=== PATIENT | male | born 1940 | race Caucasian/White ===

== ENCOUNTER → 2016-10-19 | Outpatient (CLI) | payer BC ==
[~2016-10-19] MED LIST: ASPCH81 PO; ASPI81TA28 PO; CALCTAB5 PO; LEVO100T PO; LISI-461 PO; LOVA20TA4 PO; METR0.7527 TOP; METR1GEL3 EXT; MULT-506 PO; NXM/40 PO; POLY335019 PO; PRLSR20 PO; SIMV20TA2 PO; SYN75 PO; TRIA0.1L EXT; TRMCR515 TOP; VITATAB29 PO
[2016-10-19 09:40] LABS: BASO % 1.1 %; BASO ABS # 0.07 K/uL (0-0.2); COMPLETE YES; EOS % 5.2 %; HEMATOCRIT 41.9 % (42-52); IG% 0.3 %; LYMPH % 32.7 %; LYMPH ABS # 2.12 K/uL (1.2-3.4); MEAN CELL VOLUME 91.7 fL (80-100); MEAN CORPUSCULAR HGB CONC 32.7 g/dl (32-36); MEAN PLATELET VOLUME 8.8 fL (7.4-10.4); NEUT % 49.7 %; PLATELET COUNT 233 K/uL (130-400); RED BLOOD COUNT 4.57 M/uL (4.7-6.1); WHITE BLOOD COUNT 6.48 K/uL (4.8-10.8)
[2016-10-19 09:49] LABS: BLOOD UREA NITROGEN 17 mg/dl (7-18); BUN/CREATININE RATIO 16.5 (10-20); CALCIUM 8.4 mg/dl (8.5-10.1); CARBON DIOXIDE 26 mmol/L (21-32); CHLORIDE 107 mmol/L (98-107); GLUCOSE 118 mg/dl (70-99); POTASSIUM 4.6 mmol/L (3.5-5.1); SODIUM 141 mmol/L (136-145)
[2016-10-19 10:00] LABS: PROSTATE SPECIFIC ANTIGEN 0.585 ng/ml (0.000-4.000)
--- NOTE | 2016-10-23 12:29 | CODING QUERY MEDICAL NECESSITY ---
SUPPORTING DIAGNOSIS NEEDED A supporting diagnosis is required for the test/procedure performed on this patient in order for us to be reimbursed by the patient's insurance. Please provide a supporting diagnosis for the following test/procedure listed below next to the test name along with your signature. *If there is no additional diagnosis for this patient that would support the following test/procedure please document that below next to the test/procedure. Test(s)/Procedure(s) that require a supporting diagnosis: * PSA DIAGNOSIS: * DOS: 10/19/16 Provider Signature: Date: Thank you Tierra Chisholm [employer] Information Management Once completed, please kindly fax back to [phone] For questions please call [phone]
== END | disposition home or self-care (01) ==
LOC: C.LAB 08:49
PROVIDERS: ATTEND Internal Medicine Geriatric Medicine
DX: E03.9 Hypothyroidism, unspecified (principal); I10 Essential (primary) hypertension; K22.70 Barrett's esophagus without dysplasia; M17.9 Osteoarthritis of knee, unspecified; Z12.5 Encounter for screening for malignant neoplasm of prostate

== ENCOUNTER → 2017-05-18 | Outpatient (CLI) | payer BC ==
[2017-05-18 09:40] LABS: BASO % 0.5 %; BASO ABS # 0.04 K/uL (0-0.2); COMPLETE YES; EOS % 5.2 %; HEMATOCRIT 41.8 % (42-52); IG% 0.3 %; LYMPH % 28.9 %; LYMPH ABS # 2.12 K/uL (1.2-3.4); MEAN CELL VOLUME 91.9 fL (80-100); MEAN CORPUSCULAR HEMOGLOBIN 30.5 pg (25-34); MEAN CORPUSCULAR HGB CONC 33.3 g/dl (32-36); MEAN PLATELET VOLUME 8.7 fL (7.4-10.4); MONO % 9.9 %; NEUT % 55.2 %; PLATELET COUNT 225 K/uL (130-400); RED BLOOD COUNT 4.55 M/uL (4.7-6.1); WHITE BLOOD COUNT 7.34 K/uL (4.8-10.8)
[2017-05-18 10:03] LABS: ALT/SGPT 19 U/L (12-78); AST/SGOT 13 U/L (15-37); BLOOD UREA NITROGEN 17 mg/dl (7-18); BUN/CREATININE RATIO 18.3 (10-20); CALCIUM 9.1 mg/dl (8.5-10.1); CARBON DIOXIDE 29 mmol/L (21-32); CHLORIDE 106 mmol/L (98-107); CHOLESTEROL 159 mg/dl (0-200); CREATININE 0.95 mg/dl (0.60-1.40); GLUCOSE 114 mg/dl (70-99); POTASSIUM 4.5 mmol/L (3.5-5.1); SODIUM 139 mmol/L (136-145); TRIGLYCERIDES 162 mg/dl (0-150); VERY LOW DENSITY LIPOPROT CALC 32 mg/dl
[2017-05-18 10:13] LABS: ALB/GLOB RATIO 0.9 (0.9-2); ALKALINE PHOSPHATASE 86 U/L (45-117); CHOLESTEROL/HDL RATIO 4.3; FERRITIN 7.8 ng/ml (8.0-388.0); HDL CHOLESTEROL 37 mg/dl; LDL CHOLESTEROL CALCULATED 90 mg/dl
[2017-05-18 10:21] LABS: ESTIMATED AVERAGE GLUCOSE 128 mg/dl; HA1C FLAG Normal (Normal)
--- NOTE | 2017-05-25 13:41 | CODING QUERY MEDICAL NECESSITY ---
CQSUPPORTING DIAGNOSIS NEEDED A supporting diagnosis is required for the test/procedure performed on this patient in order for us to be reimbursed by the patient's insurance. Please provide a supporting diagnosis for the following test/procedure listed below next to the test name along with your signature. *If there is no additional diagnosis for this patient that would support the following test/procedure please document that below next to the test/procedure. Test(s)/Procedure(s) that require a supporting diagnosis: DOS 05/18/17 VITAMIN D TEST VITAMIN B12 TEST GLYCATED HEMOGLOBIN TEST Provider Signature: Date: Thank you Natalie Galicia [facility] Information Management Once completed, please kindly fax back to [phone] For questions please call [phone]
== END | disposition home or self-care (01) ==
LOC: C.LAB 08:27
PROVIDERS: ATTEND Internal Medicine Geriatric Medicine
DX: E03.9 Hypothyroidism, unspecified (principal); I10 Essential (primary) hypertension; E78.5 Hyperlipidemia, unspecified; M17.10 Unilateral primary osteoarthritis, unspecified knee

== ENCOUNTER 2017-06-15 17:54 | Emergency (ER) | payer BC ==
[~2017-06-15 17:54] MED LIST changes: -ASPI81TA28 PO; -LEVO100T PO; -LOVA20TA4 PO; -METR0.7527 TOP; -NXM/40 PO; -POLY335019 PO; -TRMCR515 TOP; -VITATAB29 PO
[2017-06-15 18:08] VITALS: TEMP 36.8; Ht 172.7 cm
--- NOTE | 2017-06-15 19:37 | EMERGENCY ROOM VISIT NOTE ---
History Report prepared by Jesse: Marcel Russell Under the Supervision of: Dr. Fabio Garcia D.O. First contact with patient: 19:24 Chief Complaint: GI ASSESSMENT Stated Complaint: BOWEL BLOCKAGE History of Present Illness The patient is a 77 year old male who presents to the Emergency Room with complaints of constant constipation starting two days ago. He rates his discomfort as a 7/10 in severity. The patient states that he has not had a bowel movement since two days ago. He reports that he is normally regular and this has been abnormal. The patient states that he has not been able to urinate either. He admits to lower abdominal pain, which he admits is worse with sitting and laying on his back. The patient admits to a colonoscopy two years ago, but denies any problems. He reports that he used Metamucil, Epson Salt, warm water, and saline. The patient states that he was only able to get 10 percent of the saline in. He reports that he takes medication for his hypertension and thyroid issues. The patient admits to a history of polyps and a hemorrhoidectomy years ago. He denies any abdominal surgery. Source of History: patient Onset: two days ago Position: other (global) Symptom Intensity: 7/10 Timing: constant Modifying Factors (Relieving): other (Metamucil, Epson Salt, warm water, saline) Associated Symptoms: + abdominal pain, + urinary symptoms Review of Systems See HPI for pertinent positives & negatives. A total of 10 systems reviewed and were otherwise negative. Past Medical & Surgical Medical Problems: (1) Hemorrhoid (2) Hypertension Surgical Problems: (1) H/O hemorrhoidectomy Family History Patient reports no known family medical history. Social History Smoking Status: Former Smoker Drug Use: none Marital Status: Housing Status: lives with significant other Occupation Status: retired Current/Historical Medications Scheduled Aspirin (Aspirin Ec), 81 MG PO DAILY Esomeprazole Magnesium (Nexium), 40 MG PO DAILY Levothyroxine Sodium (Synthroid), 100 MCG PO DAILY Lisinopril (Zestril), 10 MG PO DAILY Lovastatin (Mevacor), 20 MG PO DAILY Metronidazole (Topical) (Metrogel), 1 APPLN TOP DAILY Multivitamin (Multivitamin), 1 TAB PO DAILY Polyethylene Glycol 3350 (Miralax), 17 GM PO DAILY Triamcinolone Acet (Triamcinolone Acetonide), 1 APPLN TOP UD Vitamins W/ Lipotropics (Lipoflavovit), 1 TAB PO BID Allergies Coded Allergies: Famotidine (Verified Allergy, Unknown, 09/06/15) Nitrofurantoin (Unverified Allergy, Unknown, unknown, 09/06/15) Penicillins (Verified Allergy, Unknown, 09/06/15) Sulfa Drugs (Verified Allergy, Unknown, 09/06/15) Uncoded Allergies: BANDAIDES (Allergy, Unknown, SKIN TEAR, 09/06/15) Physical Exam Vital Signs Date Time Temp Pulse Resp B/P (MAP) Pulse Ox O2 Delivery O2 Flow Rate FiO2 06/15/17 22:14 79 20 149/71 96 Room Air 06/15/17 20:31 86 20 146/67 96 Room Air 06/15/17 18:08 36.8 116 20 129/74 96 Room Air Physical Exam GENERAL: Patient is awake, alert, and in no acute distress. Patient is resting comfortably and showing no signs of anxiety EYES: The conjunctivae are clear. The pupils are round and reactive. EARS, NOSE, MOUTH AND THROAT: The nose is without any evidence of any deformity. Mucous membranes are moist tongue is midline NECK: The neck is nontender and supple. RESPIRATORY: Normal respiratory effort is noted there is no evidence of wheezing rhonchi or rales CARDIOVASCULAR: Regular rate and rhythm noted there no murmurs rubs or gallops normal S1 normal S2 GASTROINTESTINAL: Moderately distended but soft. No tenderness, guarding, or rigidity noted. MUSCULOSKELETAL/EXTREMITIES: There is no evidence of gross deformity full range of motion is noted in the hips and shoulders SKIN: There is no obvious evidence of any rash. There are no petechiae, pallor or cyanosis noted. NEUROLOGIC: Patient is awake alert and oriented x3 strength is symmetric patellar reflexes are 2+ bilaterally Medical Decision & Procedures ER Provider Diagnostic Interpretation: X-ray results as stated below per interpretation by me and the radiologist. ABDOMEN 2VIEW W/PA CHEST RTN HISTORY: 77 years-old Male CONSTIPATION acute constipation for 2 days. COMPARISON: Chest radiographs 07/31/2012 TECHNIQUE: Frontal view of the chest with erect and supine views of the abdomen FINDINGS: Cardiomediastinal and hilar silhouettes are within normal limits. Subsegmental scarring/atelectasis of the left lung base is again seen without pneumothorax, pleural effusion or focal airspace consolidation. There is atherosclerosis of the aorta. No pneumoperitoneum. Multiple air-fluid levels are seen within bowel of the right abdomen. Bowel gas pattern is nonobstructive. Moderate to extensive stool burden is seen within the rectosigmoid, descending colon and splenic flexure. No urolith. Moderate osteoarthritis of the bilateral hips. No fracture. IMPRESSION: 1. No acute cardiopulmonary process. 2. Multiple air-fluid levels are noted within bowel of the right mid abdomen with a nonobstructive bowel gas pattern. Differential considerations would include mild ileus, enteritis or diarrheal state. The above report was generated using voice recognition software. It may contain grammatical, syntax or spelling errors. Electronically signed by: Daniel Travis M.D. 06/15/2017 8:51 PM Dictated Date/Time: 06/15/2017 8:49 PM Medications Administered Medications (Trade) Dose Ordered Sig/Charlene Route Start Time Stop Time Status Last Admin Dose Admin Miscellaneous (Soap Suds Enema) 1 ea ONE STAT DE 06/15/17 20:29 06/15/17 20:30 DC 06/15/17 20:44 1 EA ED Course 1927: The patient was evaluated in room A10. A complete history and physical examination were performed. 2028: Ordered Soap Suds Enema 1 each DE. Medical Decision Differential diagnosis: Etiologies such as appendicitis, diverticulitis, PUD, biliary pathology, UTI, pancreatitis, obstruction, mesenteric ischemia, aortic pathology, infections, inflammatory bowel disease, renal colic, as well as others were entertained. Nursing notes reviewed. The patient is a 77-year-old male who presented to the emergency department for evaluation of constipation. The patient's physical exam was not consistent with an acute surgical abdomen. Plain x-rays did reveal some signs of constipation and on exam he had some degree of fecal impaction. The patient was treated with a soapsuds enema in the emergency department. He had a very large bowel movement and afterwards was feeling much better. He was encouraged to rest and avoid strenuous activity. He was also encouraged to drink plenty clear liquids and continue all medications as prescribed. He was also encouraged to return to the emergency department immediately if symptoms change worsen or the need arises. Medication Reconcilliation Current Medication List: was personally reviewed by me Blood Pressure Screening Patient's blood pressure: Elevated blood pressure Blood pressure disposition: Elevated BP felt to be situational Impression Primary Impression: Constipation Scribe Attestation The scribe's documentation has been prepared under my direction and personally reviewed by me in its entirety. I confirm that the note above accurately reflects all work, treatment, procedures, and medical decision making performed by me. Departure Information Dispostion Home / Self-Care Prescriptions Polyethylene Glycol 3350 (MIRALAX) 1 Pow 17 GM PO DAILY, #527 GM Prov: Fabio Garcia, DO 06/15/17 Referrals Matty Ortez M.D. (PCP) Forms HOME CARE DOCUMENTATION FORM, IMPORTANT VISIT INFORMATION Patient Instructions Constipation, My [facility] [place] Additional Instructions Continue all medications as prescribed. Drink plenty clear liquids. Call your family to schedule a follow-up appointment. Problem Qualifiers Primary Impression: Constipation Constipation type: unspecified constipation type Qualified Codes: K59.00 - Constipation, unspecified
[2017-06-15] MEDS ORDERED: SOAP SUDS ENEMA PR STA (20:29)
--- NOTE | 2017-06-15 20:53 | DIAGNOSTIC IMAGING REPORT ---
ABDOMEN 2VIEW W/PA CHEST RTN HISTORY: 77 years-old Male CONSTIPATION acute constipation for 2 days. COMPARISON: Chest radiographs 07/31/2012 TECHNIQUE: Frontal view of the chest with erect and supine views of the abdomen FINDINGS: Cardiomediastinal and hilar silhouettes are within normal limits. Subsegmental scarring/atelectasis of the left lung base is again seen without pneumothorax, pleural effusion or focal airspace consolidation. There is atherosclerosis of the aorta. No pneumoperitoneum. Multiple air-fluid levels are seen within bowel of the right abdomen. Bowel gas pattern is nonobstructive. Moderate to extensive stool burden is seen within the rectosigmoid, descending colon and splenic flexure. No urolith. Moderate osteoarthritis of the bilateral hips. No fracture. IMPRESSION: 1. No acute cardiopulmonary process. 2. Multiple air-fluid levels are noted within bowel of the right mid abdomen with a nonobstructive bowel gas pattern. Differential considerations would include mild ileus, enteritis or diarrheal state. The above report was generated using voice recognition software. It may contain grammatical, syntax or spelling errors. Electronically signed by: Daniel Travis M.D. 06/15/2017 8:51 PM Dictated Date/Time: 06/15/2017 8:49 PM
[2017-06-15] MEDS ORDERED: LEVO100T PO (21:13)
[2017-06-15] MEDS ORDERED: NXM/40 PO (21:13)
[2017-06-15] MEDS ORDERED: ASPI81TA28 PO (21:13)
[2017-06-15] MEDS ORDERED: LOVA20TA4 PO (21:13)
[2017-06-15] MEDS ORDERED: METR0.7527 TOP (21:13)
[2017-06-15] MEDS ORDERED: VITATAB29 PO (21:13)
[2017-06-15] MEDS ORDERED: TRMCR515 TOP (21:14)
[2017-06-15] MEDS ORDERED: POLY335019 PO (21:55)
[2017-06-15 22:14] VITALS: BP 149/71; PULSE 79; O2SAT 96
== END 2017-06-15 22:15 | disposition home or self-care (01) ==
LOC: C.EDB 17:55 → C.EDA 22:15
DX: K59.00 Constipation, unspecified (principal); I10 Essential (primary) hypertension; R33.9 Retention of urine, unspecified; R10.30 Lower abdominal pain, unspecified; Z79.82 Long term (current) use of aspirin; Z87.891 Personal history of nicotine dependence

== ENCOUNTER → 2017-11-16 | Outpatient (CLI) | payer BC ==
[~2017-11-16] MED LIST changes: -ASPCH81 PO; +ASPI81TA28 PO; -CALCTAB5 PO; +LEVO100T PO; +LOVA20TA4 PO; +METR0.7527 TOP; -METR1GEL3 EXT; +NXM/40 PO; +POLY335019 PO; -PRLSR20 PO; -SIMV20TA2 PO; -SYN75 PO; -TRIA0.1L EXT; +TRMCR515 TOP; +VITATAB29 PO
[2017-11-16 09:34] LABS: BASO % 0.5 %; BASO ABS # 0.04 K/uL (0-0.2); EOS % 3.7 %; HEMATOCRIT 40.8 % (42-52); HEMOGLOBIN 13.6 g/dL (14.0-18.0); IG# 0.03 K/uL (0.00-0.02); LYMPH % 21.8 %; LYMPH ABS # 1.79 K/uL (1.2-3.4); MEAN CELL VOLUME 90.1 fL (80-100); MEAN CORPUSCULAR HGB CONC 33.3 g/dl (32-36); MEAN PLATELET VOLUME 8.3 fL (7.4-10.4); MONO % 10.8 %; MONO ABS # 0.89 K/uL (0.11-0.59); NEUT % 62.8 %; NEUT ABS # 5.16 K/uL (1.4-6.5); PLATELET COUNT 253 K/uL (130-400); RED CELL DISTRIBUTION WIDTH CV 13.8 % (11.5-14.5); RED CELL DISTRIBUTION WIDTH SD 44.7 fL (36.4-46.3); WHITE BLOOD COUNT 8.21 K/uL (4.8-10.8)
[2017-11-16 10:16] LABS: BLOOD UREA NITROGEN 17 mg/dl (7-18); CALCIUM 9.1 mg/dl (8.5-10.1); CARBON DIOXIDE 27 mmol/L (21-32); CREATININE 1.01 mg/dl (0.60-1.40); GLUCOSE 106 mg/dl (70-99); POTASSIUM 4.2 mmol/L (3.5-5.1); SODIUM 139 mmol/L (136-145)
== END | disposition home or self-care (01) ==
LOC: C.LAB 08:05
PROVIDERS: ATTEND Internal Medicine Geriatric Medicine
DX: E03.9 Hypothyroidism, unspecified (principal); I10 Essential (primary) hypertension

== ENCOUNTER 2022-04-22 17:40 | Inpatient (IN) ==
--- NOTE | 2022-04-22 18:10 | Emergency Department Note ---
History of Present Illness General Chief complaint: Shortness of Breath/Dyspnea Stated complaint: SHAKING, CANNOT WALK, SOB Time Seen by Provider: 04/22/22 17:48 Source: patient and family ( who is at the bedside) Mode of arrival: ambulatory Limitations: no limitations History of Present Illness This patient is a 82-year-old male comes in with increasing weakness and shakiness. He says some chronic shortness of breath for the last several months as well. He started getting shaky since he was seen here yesterday and his says he got significantly worse where he is very shaky and cannot walk. The shaking seems to mostly in his upper extremities he has had no focal numbness or weakness no fall or trauma no chest pain no headache he has an occasional cough denies urinary symptoms no blood or melena stool. He is h istory of some chronic anemia and has had a GI work-up which has been unremarkable with exception of Jose's esophagus. he has had no obvious GI blood loss. Home Medications Medication Instructions Recorded Confirmed Type azzfnggkqhco-sresbyxd-lyshlp tablet 1 tab PO QPM 07/01/19 04/22/22 History aspirin 81 mg chewable tablet 81 mg PO QAM 07/04/19 04/22/22 History (Katy Chewable Low Dose Aspirin) metronidazole 0.75 % topical gel 1 applic topical HS rash 01/01/20 04/22/22 History triamcinolone acetonide 0.5 % 1 applic topical UD PRN Skin 01/01/20 04/22/22 History topical cream Irritation valsartan 80 mg tablet 80 mg PO QAM 11/21/21 04/22/22 History esomeprazole magnesium 40 mg 40 mg PO QAM #90 caps 02/02/22 04/22/22 Rx capsule,delayed release levothyroxine 100 mcg tablet 100 mcg PO QAM #90 tabs 02/02/22 04/22/22 Rx lovastatin 20 mg tablet 20 mg PO QPM #90 tabs 02/02/22 04/22/22 Rx polyethylene glycol 3350 17 17 g PO HS 04/22/22 04/22/22 History gram/dose oral powder (Miralax) Allergies Allergy/AdvReac Type Severity Reaction Status Date / Time famotidine Allergy Intermediate Hives Verified 04/22/22 19:09 nitrofurantoin Allergy Intermediate Hives Verified 04/22/22 19:09 Penicillins Allergy Intermediate Hives Verified 04/22/22 19:09 Sulfa (Sulfonamide Allergy Intermediate Hives Verified 04/22/22 19:09 Antibiotics) adhesive AdvReac Intermediate skin tear Verified 04/22/22 19:09 Past Med/Surg History Medical History Anemia Jose's esophagus GERD (gastroesophageal reflux disease) HLD (hyperlipidemia) KOBUK (hard of hearing) HTN (hypertension) Hypothyroidism Osteoarthritis Postoperative voiding difficulty Sensorineural hearing loss (SNHL) of both ears Tinnitus Surgical History H/O colonoscopy (08/2018) Hyperplastic polyps, recheck 10 years, [facility] H/O hemorrhoidectomy 1998 H/O rotator cuff surgery R shoulder, April 2021 History of basal cell carcinoma (BCC) excision History of cataract surgery Right: August 2013 Left: September 2013 History of esophagogastroduodenoscopy (EGD) (08/2018) Focal area of Jose's esophagus 36 cm, recheck 3 years, [facility] Family History Brother , age 46 Myocardial infarction Hx of CABG Hypertension Mother Hx of CABG Coronary heart disease Father Lung cancer "behind lungs" Other No family history of adverse response to anesthesia No family history of bleeding disorder Denies family history of Ovarian cancer Prostate cancer Breast cancer Colorectal cancer Social History Smoking Status: Former smoker Tobacco Type: Cigarettes Age Started Using Tobacco: 14; Age Quit Using Tobacco: 69; packs per day: 0.5; Cigarettes Per Day: 10; Second Hand Exposure: No; Hx Alcohol Use: No Hx Substance Use: No Preferred Language: Montenegrin Communication Ability: Effective Visual Impairment: No Limitations Hearing Ability: Normal [place] Cutter Required: No Beliefs That Will Affect Care: None marital status: Current Living Situation: Spouse current occupational status: retired current occupation: used to work with [employer] Feels Safe at Home: Yes Childhood Exposure to Second-Hand Smoke: No Dental Care, Regularly: Yes Physical Activity Frequency: Daily Physical Activity Frequency Comment: walk Seatbelt Use: always Sunscreen Use: No Assistive Devices: Cane and Glasses Review of Systems A total of 10 systems reviewed and were otherwise negative Physical Exam Vital Signs Vital Signs - 24 hr 04/22/22 17:42 04/22/22 17:56 04/22/22 17:56 Temperature 36.8 C Temperature Source Temporal Artery Scan Pulse Rate 101 H Pulse Rate [Apical] Respiratory Rate 20 Respiratory Effort / Characteristics Non-Labored Short of Breath Respiratory Depth Normal Respiratory Pattern Regular Blood Pressure 152/66 H Blood Pressure [Right Arm] Blood Pressure Mean 94 Blood Pressure Mean [Right Arm] Blood Pressure Position Sitting Blood Pressure Position [Right Arm] Pulse Oximetry 98 Oxygen Delivery Method Room Air Room Air Sepsis Recent Fever Within 48 Hours No Sepsis New/Unexplained Change in Mental Status No Sepsis Action Taken by Nursing No Action Required 04/22/22 17:56 04/22/22 18:57 04/22/22 18:58 Temperature Temperature Source Pulse Rate 85 Pulse Rate [Apical] 91 H 82 Respiratory Rate 32 H 18 26 H Respiratory Effort / Characteristics Short of Breath Respiratory Depth Respiratory Pattern Tachypnea Tachypnea Blood Pressure Blood Pressure [Right Arm] 134/71 129/65 Blood Pressure Mean Blood Pressure Mean [Right Arm] 92 86 Blood Pressure Position Blood Pressure Position [Right Arm] Pulse Oximetry 98 98 98 Oxygen Delivery Method Room Air Room Air Room Air Sepsis Recent Fever Within 48 Hours Sepsis New/Unexplained Change in Mental Status Sepsis Action Taken by Nursing 04/22/22 19:39 04/22/22 18:59 04/22/22 19:25 Temperature Temperature Source Pulse Rate 80 78 Pulse Rate [Apical] 82 Respiratory Rate 18 18 19 Respiratory Effort / Characteristics Non-Labored Spontaneous Respiratory Depth Normal Respiratory Pattern Blood Pressure 129/68 158/72 H Blood Pressure [Right Arm] 158/72 H Blood Pressure Mean 88 100 Blood Pressure Mean [Right Arm] 100 Blood Pressure Position Blood Pressure Position [Right Arm] Lying Pulse Oximetry 94 97 97 Oxygen Delivery Method Room Air Room Air Room Air Sepsis Recent Fever Within 48 Hours Sepsis New/Unexplained Change in Mental Status Sepsis Action Taken by Nursing General: Well developed well nourished older male who appears shaky mostly with movement but in no acute distress, breathing comfortably on room air. Normal speech HEENT: Normal cephalic atraumatic. Pupils are equal round and reactive to light. Extraocular movements are intact. Oropharynx is pink with moist mucous membranes. No swelling of the mouth lips or tongue. Neck: Supple with a midline trachea. No meningeal signs or stiffness, no JVD or bruits. No Stridor. Chest: Clear to auscultation bilaterally. No wheezes or rhonchi. No increased work of breathing. Heart: Regular rate and rhythm without murmurs or gallops. Abdomen: Soft nontender, nondistended without rebound guarding or rigidity. Extremities: No cyanosis clubbing or edema. No calf tenderness or assymetry Spine/Back. Non tender to palpation. No CVA tenderness Skin: Good turgor without rashes. Neurologic exam: Cranial nerves two through 12 are intact. Motor and sensation are intact and symmetrical throughout. He does have a tremor which is mostly with movement he does not seem to shake it at rest Course Administered Medications Discontinued Medications Sodium Chloride (Nss 1000ml) 500 mls @ 999 mls/hr IV .Q31M ONE Stop: 04/22/22 19:35 Last Admin: 04/22/22 19:38 Dose: 999 mls/hr Documented By: CLEM Medical Decision Making Differential Diagnosis Infection, neurologic disease, acute coronary syndrome, arrhythmia, thyroid disease, medication side effect Medical Records Attestation: I reviewed the patient's medical records. Home Medications Current Medication List: was personally reviewed by me Laboratory Data Attestation: I reviewed the patient's lab results. Result diagrams: 04/22/22 18:55 04/22/22 18:55 Lab Results 04/22/22 04/22/22 04/22/22 Range/Units 18:55 18:55 18:55 WBC (4.8-10.8) K/ul RBC (4.63-6.08) M/uL Hgb (14.0-18.0) g/dl Hct (40.1-51.0) % MCV (80.0-100.0) fL MCH (25.0-34.0) pg MCHC (32.0-36.0) g/dL RDW Std Deviation (36.4-46.3) fL RDW Coeff of Razia (11.5-14.5) % Plt Count (130-400) K/uL MPV (9.4-12.4) fL Immature Gran % (Auto) % Neut % (Auto) % Lymph % (Auto) % [place] % (Auto) % Eos % (Auto) % Baso % (Auto) % Neut # (Auto) (1.4-6.5) K/uL Lymph # (Auto) (1.2-3.4) K/uL [place] # (Auto) (0.24-0.82) K/uL Eos # (Auto) (0-0.50) K/uL Baso # (Auto) (0-0.2) K/uL Immature Gran # (Auto) (0.00-0.02) K/uL PT 11.2 (9.0-12.0) Seconds INR 1.1 (0.9-1.1) Sodium 138 (136-145) mmol/L Potassium 3.8 (3.5-5.1) mmol/L Chloride 108 H (98-107) mmol/L Carbon Dioxide 24 (21-32) mmol/L Anion Gap 6 (3-11) BUN 24 H (6-23) mg/dl Creatinine 1.09 (0.6-1.4) mg/dl Est Cr Clr Drug Dosing 61.3 ml/min Est GFR ( Amer) 73.9 ml/min Est GFR (Non-Af Amer) 63.8 ml/min BUN/Creatinine Ratio 22.0 H (10-20) Glucose 101 H (70-99(Fasting)) mg/dl Lactate 1.0 (0.4-2.0) mmol/L Calcium 8.7 (8.5-10.1) mg/dl Magnesium 2.3 (1.7-2.4) mg/dl Total Bilirubin 1.0 (0.2-1.0) mg/dl AST 17 (13-39) U/L ALT 11 (7-52) U/L Alkaline Phosphatase 84 (34-104) U/L Total Creatine Kinase 264 H (30-223) U/L Troponin I High Sens 7.8 (0-20) pg/ml Total Protein 6.8 (6.0-8.3) gm/dl Albumin 3.9 (3.4-5.0) gm/dl Globulin 2.9 (2.5-4.0) gm/dl Albumin/Globulin Ratio 1.3 (0.9-2) TSH (0.300-4.500) uIu/ml SARS-CoV-2, RNA, NAAT (NEGATIVE) 04/22/22 04/22/22 04/22/22 Range/Units 18:55 18:55 18:55 WBC 8.24 (4.8-10.8) K/ul RBC 3.94 L (4.63-6.08) M/uL Hgb 8.7 L (14.0-18.0) g/dl Hct 29.3 L (40.1-51.0) % MCV 74.4 L (80.0-100.0) fL MCH 22.1 L (25.0-34.0) pg MCHC 29.7 L (32.0-36.0) g/dL RDW Std Deviation 51.8 H (36.4-46.3) fL RDW Coeff of Razia 19.3 H (11.5-14.5) % Plt Count 325 (130-400) K/uL MPV 8.3 L (9.4-12.4) fL Immature Gran % (Auto) 0.4 % Neut % (Auto) 60.2 % Lymph % (Auto) 24.9 % [place] % (Auto) 11.2 % Eos % (Auto) 2.2 % Baso % (Auto) 1.1 % Neut # (Auto) 4.97 (1.4-6.5) K/uL Lymph # (Auto) 2.05 (1.2-3.4) K/uL [place] # (Auto) 0.92 H (0.24-0.82) K/uL Eos # (Auto) 0.18 (0-0.50) K/uL Baso # (Auto) 0.09 (0-0.2) K/uL Immature Gran # (Auto) 0.03 H (0.00-0.02) K/uL PT (9.0-12.0) Seconds INR (0.9-1.1) Sodium (136-145) mmol/L Potassium (3.5-5.1) mmol/L Chloride (98-107) mmol/L Carbon Dioxide (21-32) mmol/L Anion Gap (3-11) BUN (6-23) mg/dl Creatinine (0.6-1.4) mg/dl Est Cr Clr Drug Dosing ml/min Est GFR ( Amer) ml/min Est GFR (Non-Af Amer) ml/min BUN/Creatinine Ratio (10-20) Glucose (70-99(Fasting)) mg/dl Lactate (0.4-2.0) mmol/L Calcium (8.5-10.1) mg/dl Magnesium (1.7-2.4) mg/dl Total Bilirubin (0.2-1.0) mg/dl AST (13-39) U/L ALT (7-52) U/L Alkaline Phosphatase (34-104) U/L Total Creatine Kinase (30-223) U/L Troponin I High Sens (0-20) pg/ml Total Protein (6.0-8.3) gm/dl Albumin (3.4-5.0) gm/dl Globulin (2.5-4.0) gm/dl Albumin/Globulin Ratio (0.9-2) TSH 2.732 (0.300-4.500) uIu/ml SARS-CoV-2, RNA, NAAT NEGATIVE (NEGATIVE) Imaging Data Attestation: I personally reviewed and interpreted this imaging study as follows: My Impression: Chest x-rayno acute infiltrate, failure, pneumothorax seen Radiologist's Impression: Head CT 04/22/22 18:[address] DOSE: 823.12 mGy.cm HISTORY: eldon and lali TECHNIQUE: Multiaxial CT images of the head were performed without the use of intravenous contrast. Automated exposure control was utilized for this study. A dose lowering technique was utilized adhering to the principles of ALARA. Comparison: Head CT 05/24/2009 Findings: Mild mucosal thickening within the sphenoid sinuses. The mastoid air cells are clear. The calvarium and skull base are intact. There is no mass, hematoma, midline shift, acute infarct. White matter hypodensity is nonspecific but suggestive of microvascular ischemic change. The ventricles and sulci demonstrate mild age-related involutional changes. Impression: No acute intracranial abnormality. Atrophy and microvascular ischemic changes. ACT 112: Negative or not required by law. Electronically signed by: Peter Herring M.D. 04/22/2022 7:28 PM Chest X-Ray 04/22/22 18:07 XR chest 1V portable HISTORY: weakness COMPARISON: Chest 04/21/2022. FINDINGS: No pneumothorax. No pleural effusions. The cardiac silhouette remains mildly enlarged. This mildly tortuous thoracic aorta, unchanged. Stable linear scarlike density within the left lower lung zone. Otherwise, no new focal lung consolidations to suggest pneumonia. No evidence for pulmonary edema. IMPRESSION: No significant change compared to the prior study. No acute process. ACT 112: Negative or not required by law. Electronically signed by: Peter Herring M.D. 04/22/2022 6:30 PM ECG Data Attestation: I personally reviewed and interpreted this ECG as follows: Indication: + weakness Rate (beats per minute): 84 Rhythm: + normal sinus ECG Intervals/blocks: + Normal QRS, + Normal QT and + Normal IA ECG [place]: + Normal ECG Findings: no PACs or no PVCs Comparison ECG Date: from (04/21/22) Change: no significant change MDM Narrative This patient comes in as described above. He was placed in room B 10. He is here for treatment evaluation of weak and shakiness that is gotten worse. He has stable vital signs. IV was established, EKG was obtained, head CT, chest x-ray, multiple blood testing was obtained . I reassessed him frequently. I reviewed his records from yesterday. He has anemia which is slightly worse than yesterday but seems to be more of a subacute issue. His tells me he is at significant GI work-up for this and have not found any GI bleeding. He has no significant electrolyte or metabolic abnormalities. The rest of his CBC is unremarkable with normal white count and platelets therefore a primary bone marrow issue would be less likely. CAT scan of his head is unremarkable and he has a nonfocal neurologic exam. EKG does not show any ischemic changes or ectopy and his normal troponin. Chest x-ray was unremarkable. COVID testing was negative. Given the patient's increasing weakness I do think he needs to be admitted/observed and have consulted Dr. Griffiths and his team to see the patient in ER for these measures. Continuous cardiac monitoring: Orders were placed in the EMR for continuous cardiac monitoring. Agustin interpretation the patient was noted to be in normal sinus rhythm with a rate of 77 Impression & Plan Weakness, Shakiness, Lab test negative for COVID-19 virus, Ambulatory dysfunction, SOB (shortness of breath) Discharge Plan Visit Data Chief Complaint: Shortness of Breath/Dyspnea Stated Complaint: SHAKING, CANNOT WALK, SOB ED Provider: Parrish Roca Discharge Problem: Weakness, Shakiness, Lab test negative for COVID-19 virus, Ambulatory dysfunction, SOB (shortness of breath) Forms Stand Alone Forms: My [facility] Prescriptions Prescriptions: No Action esomeprazole magnesium 40 mg capsule,delayed release(DR/EC) 40 mg PO QAM Qty: 90 3RF levothyroxine 100 mcg tablet 100 mcg PO QAM Qty: 90 1RF lovastatin 20 mg tablet 20 mg PO QPM Qty: 90 3RF unvfwgegklnw-tonwexha-ebnqus tablet 1 tab PO QPM aspirin [Katy Chewable Aspirin] 81 mg tablet,chewable 81 mg PO QAM triamcinolone acetonide 0.5 % cream 1 applic TOP UD PRN (Reason: Skin Irritation) metronidazole 0.75 % gel 1 applic TOP HS valsartan 80 mg tablet 80 mg PO QAM polyethylene glycol 3350 [Miralax] 17 gram/dose Powder 17 g PO HS Referrals Referrals: PCP,NO [Primary Care Provider] -
--- NOTE | 2022-04-22 18:31 | XRay Report ---
XR chest 1V portable HISTORY: weakness COMPARISON: Chest 04/21/2022. FINDINGS: No pneumothorax. No pleural effusions. The cardiac silhouette remains mildly enlarged. This mildly tortuous thoracic aorta, unchanged. Stable linear scarlike density within the left lower lung zone. Otherwise, no new focal lung consolidations to suggest pneumonia. No evidence for pulmonary ed carmen. IMPRESSION: No significant change compared to the prior study. No acute process. ACT 112: Negative or not required by law. Electronically signed by: Peter Herring M.D. 04/22/2022 6:30 PM
[2022-04-22] MEDS ORDERED: SODIUM CHLORIDE 0.9% 1000ML 500 ML IV ONE (19:05)
[2022-04-22 19:10] LABS: Basophils # (auto) 0.09 K/uL (0-0.2); Basophils % (auto) 1.1 %; Eosinophils # (auto) 0.18 K/uL (0-0.50); Eosinophils % (auto) 2.2 %; Hematocrit (blood only) 29.3 % (40.1-51.0); Hemoglobin 8.7 g/dl (14.0-18.0); Immature Granulocytes # (auto) 0.03 K/uL (0.00-0.02); Immature Granulocytes % (auto) 0.4 %; Lymphocytes # (auto) 2.05 K/uL (1.2-3.4); Lymphocytes % (auto) 24.9 %; Mean Corpuscular Hemoglobin 22.1 pg (25.0-34.0); Mean Corpuscular Hgb Conc 29.7 g/dL (32.0-36.0); Mean Corpuscular Volume 74.4 fL (80.0-100.0); Mean Platelet Volume 8.3 fL (9.4-12.4); Monocytes # (auto) 0.92 K/uL (0.24-0.82); Monocytes % (auto) 11.2 %; Neutrophils # (auto) 4.97 K/uL (1.4-6.5); Neutrophils % (auto) 60.2 %; Platelet Count 325 K/uL (130-400); RDW Coefficient of Variation 19.3 % (11.5-14.5); RDW Standard Deviation 51.8 fL (36.4-46.3); Red Blood Count 3.94 M/uL (4.63-6.08); White Blood Count 8.24 K/ul (4.8-10.8)
[2022-04-22 19:20] LABS: INR 1.1 (0.9-1.1); Prothrombin Time 11.2 Seconds (9.0-12.0)
--- NOTE | 2022-04-22 19:31 | CT Scan Report ---
HEAD CT NONCONTRAST CT DOSE: 823.12 mGy.cm HISTORY: weakn and shaky TECHNIQUE: Multiaxial CT images of the head were performed without the use of intravenous contrast. A utomated exposure control was utilized for this study. A dose lowering technique was utilized adheri ng to the principles of ALARA. Comparison: Head CT 05/24/2009 Findings: Mild mucosal thickening within the sphenoid sinuses. The mastoid air cells are clear. The c alvarium and skull base are intact. There is no mass, hematoma, midline shift, acute infarct. White m atter hypodensity is nonspecific but suggestive of microvascular ischemic change. The ventricles and sulci demonstrate mild age-related involutional changes. Impression: No acute intracranial abnormality. Atrophy and microvascular ischemic changes. ACT 112: Negative or not required by law. Electronically signed by: Peter Herring M.D. 04/22/2022 7:28 PM
[2022-04-22 19:37] LABS: Troponin I High Sensitivity 7.8 pg/ml (0-20)
[2022-04-22 19:50] LABS: Albumin Globulin Ratio 1.3 (0.9-2); Albumin Level 3.9 gm/dl (3.4-5.0); Calcium 8.7 mg/dl (8.5-10.1); Creatinine Clr Calc Pharmacy 61.3 ml/min; Est GFR (African American) 73.9 ml/min; Est GFR (Non-African American) 63.8 ml/min; Globulin 2.9 gm/dl (2.5-4.0); Magnesium 2.3 mg/dl (1.7-2.4); Potassium 3.8 mmol/L (3.5-5.1); Total Protein 6.8 gm/dl (6.0-8.3)
--- NOTE | 2022-04-22 20:22 | History & Physical Report ---
Date of Service April 22, 2022 Assessment & Plan (1) Tremor of both hands: Plan: 82 year old male w/ PMHx of subacute iron-deficiency anemia, HTN, HLD, hypothyroidism, and Jose's who presents w/ new onset intention tremors, ambulatory dysfunction and generalized weakness. - MRI brain w/ and w/o contrast to r/o cerebellar pathology as patient has nystagmus and new-onset bilateral intention tremor. Tremor not c/w asterixis. Lower risk for substance withdrawal. - head CT w/o acute changes - cerebellar tremor vs Parkinson's vs essential tremor. will check b12, folate. - 04/17/22 Lyme Ab neg - esophageal varices appears to be related to Jose's and not etoh or liver disease - mildly elevated CK (264) - neuro consult - PT/OT evals ordered (2) Generalized weakness: Plan: - see above (3) Iron deficiency anemia: Plan: Subacute x 5-6 months, workup started as outpatient, including 10/2021 colonoscopy and 02/2022 capsule endoscopy. Slightly microcytic. Severe iron deficiency per 04/17/22 outpatient workup. Not tolerating PO iron. Consider dose of IV Venofer - check b12, folate, hemolysis labs, peripheral smear - order hemmocult stool - with hx of Jose's and esophageal varices, esophageal malignancy is on differential (4) Dyspnea on exertion: Plan: - x3 months, mild - distant tobacco use - differential includes copd, deconditioning, and anemia (less likely). Lungs w/o crackles on exam. consider outpatient pfts (5) Anemia: Plan: Subacute x 5-6 months. Slightly microcytic. Severe iron deficiency per 04/17/22 outpatient workup. Not tolerating PO iron. Consider dose of IV Venofer - check b12, folate, hemolysis labs, peripheral smear - order hemmocult stool - with hx of Jose's and esophageal varices, esophageal malignancy is on differential (6) Hypertension: Plan: Chronic, continue home valsartan. (7) Dyslipidemia: Plan: Chronic, continue home lovastatin. (8) Hypothyroidism: Plan: Chronic, continue home levothyroxine. (9) Barretts esophagus: Plan: Chronic, continue PPI. EGD last year w/ grade 3 esophageal varices. (10) Constipation: Plan: Chronic, continue home miralax qhs. Plan Diet, fluids: low Na. No IV fluids. ppx: Lovenox SQ code: full dispo: med/surg History of Present Illness Chief Complaint: acute bilateral hand tremors Primary Care Provider: NO PCP 82 year old male w/ PMHx of subacute iron-deficiency anemia, HTN, HLD, hypothyroidism, Jose's, and grade 3 esophageal varices who presents w/ new onset hand tremors since 04/20/22, ambulatory dysfunction and generalized weakness. He was sent home from ED yesterday for atypical chest pain w/ planned outpatient cardiology f/u. The tremors are mainly at hands, present at rest, but significantly worsened w/ intention/movement such as brushing teeth. He denies any prior hx of tremor and does not have family hx of Parkinson's. He denies hx of chronic liver disease or chronic etoh issues. No recent etoh use. He has been stumbling more but denies falls. His baseline is an active lifestyle. He has had mild cuo-xszj-reebgdhz lightheadedness when standing up too quickly. 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 Occasional intermittent neck pain, no recent worsening. He has had recent outpatient workup for severe iron deficiency anemia including colonoscopy and capsule endoscopy. No paresthesias. No infectious symptoms. No myopathy symptoms. Denies recent infections such as URI. No fever/chills, cp, sob. No headaches. Denies memory issues. Chronic mild speech impediment since childhood. He has had a few months of slightly increased MARQUEZ. Quit tobacco 1998. ED course: NSS 500mL bolus. Allergies Allergy/AdvReac Type Severity Reaction Status Date / Time famotidine Allergy Intermediate Hives Verified 04/22/22 19:09 nitrofurantoin Allergy Intermediate Hives Verified 04/22/22 19:09 Penicillins Allergy Intermediate Hives Verified 04/22/22 19:09 Sulfa (Sulfonamide Allergy Intermediate Hives Verified 04/22/22 19:09 Antibiotics) adhesive AdvReac Intermediate skin tear Verified 04/22/22 19:09 Home Medications Medication Instructions Recorded Confirmed Type zidsmkftiqxf-ecxtmzgx-eujyfk tablet 1 tab PO QPM 07/01/19 04/22/22 History aspirin 81 mg chewable tablet 81 mg PO QAM 07/04/19 04/22/22 History (Katy Chewable Low Dose Aspirin) metronidazole 0.75 % topical gel 1 applic topical HS rash 01/01/20 04/22/22 History triamcinolone acetonide 0.5 % 1 applic topical UD PRN Skin 01/01/20 04/22/22 History topical cream Irritation valsartan 80 mg tablet 80 mg PO QAM 11/21/21 04/22/22 History esomeprazole magnesium 40 mg 40 mg PO QAM #90 caps 02/02/22 04/22/22 Rx capsule,delayed release levothyroxine 100 mcg tablet 100 mcg PO QAM #90 tabs 02/02/22 04/22/22 Rx lovastatin 20 mg tablet 20 mg PO QPM #90 tabs 02/02/22 04/22/22 Rx polyethylene glycol 3350 17 17 g PO HS 04/22/22 04/22/22 History gram/dose oral powder (Miralax) Past Med/Surg History Medical History Anemia Jose's esophagus GERD (gastroesophageal reflux disease) HLD (hyperlipidemia) [place] (hard of hearing) HTN (hypertension) Hypothyroidism Osteoarthritis Postoperative voiding difficulty Sensorineural hearing loss (SNHL) of both ears Tinnitus Surgical History H/O colonoscopy (08/2018) Hyperplastic polyps, recheck 10 years, [facility] H/O hemorrhoidectomy 1998 H/O rotator cuff surgery R shoulder, April 2021 History of basal cell carcinoma (BCC) excision History of cataract surgery Right: August 2013 Left: September 2013 History of esophagogastroduodenoscopy (EGD) (08/2018) Focal area of Jose's esophagus 36 cm, recheck 3 years, [facility] Family History Brother , age 46 Myocardial infarction Hx of CABG Hypertension Mother Hx of CABG Coronary heart disease Father Lung cancer "behind lungs" Other No family history of adverse response to anesthesia No family history of bleeding disorder Denies family history of Ovarian cancer Prostate cancer Breast cancer Colorectal cancer Social History Smoking Status: Never smoker Tobacco Type: Cigarettes Age Started Using Tobacco: 14; Age Quit Using Tobacco: 69; packs per day: 0.5; Cigarettes Per Day: 10; Second Hand Exposure: No; Hx Alcohol Use: Yes Alcohol type: hard liquor Hx Substance Use: No Preferred Language: Malay Communication Ability: Effective Visual Impairment: No Limitations Hearing Ability: Normal Serologist Required: No Beliefs That Will Affect Care: None marital status: Current Living Situation: Spouse current occupational status: retired current occupation: used to work with [employer] Other Information That Helps Us Care for You: No Feels Safe at Home: Yes Safety Concerns: Feels Safe At This Time Childhood Exposure to Second-Hand Smoke: No Dental Care, Regularly: Yes Physical Activity Frequency: Daily Physical Activity Frequency Comment: walk Seatbelt Use: always Sunscreen Use: No Assistive Devices: Cane Review of Systems Review of Systems: All systems reviewed & are unremarkable except as noted in HPI & below Physical Exam Physical Exam: General: Grossly A&O. NAD. Cooperative. HEENT: Atraumatic, normocephalic. PERRL. EOMI, but notable nystagmus during extraocular eye movement testing when looking towards right. Pulm: CTAB. -wheezes, -rales, -rhonchi. No respiratory distress. Cardiac: RRR, -mrg. Radial pulses intact and symmetrical. Trace BLE edema, pretibial. Abdominal: Nontender, nondistended, soft. Integ: Warm, dry, intact. Msk: Moving all extrem. Neuro: CN II-XII intact. Mild speech impediment, chronic, not new. BIlateral hand tramor at rest, worsened w/ intention; unable to perform finger to nose test because of this. Normal heel-hayden test. Results & Data Results & Data ([facility]) Vital Signs (Past 12 Hours) Vital Signs Temp Pulse Pulse Resp BP BP Pulse Ox 04/22/22 19:25 78 19 158/72 H 97 04/22/22 18:59 80 18 129/68 97 04/22/22 19:39 82 18 158/72 H 94 04/22/22 18:58 82 26 H 129/65 98 04/22/22 18:57 85 18 98 04/22/22 17:56 91 H 32 H 134/71 98 04/22/22 17:56 04/22/22 17:42 36.8 C 101 H 20 152/66 H 98 O2 Del Method 08/06/22 19:25 Room Air 04/22/22 18:59 Room Air 04/22/22 19:39 Room Air 04/22/22 18:58 Room Air 04/22/22 18:57 Room Air 04/22/22 17:56 Room Air 04/22/22 17:56 Room Air 04/22/22 17:42 Room Air Laboratory Results Cardiac Enzymes 04/22/22 Range/Units 18:55 AST 17 (13-39) U/L Troponin I High Sens 7.8 (0-20) pg/ml Coagulation 04/22/22 Range/Units 18:55 PT 11.2 (9.0-12.0) Seconds CBC 04/22/22 Range/Units 18:55 WBC 8.24 (4.8-10.8) K/ul RBC 3.94 L (4.63-6.08) M/uL Hgb 8.7 L (14.0-18.0) g/dl Hct 29.3 L (40.1-51.0) % Plt Count 325 (130-400) K/uL Neut # (Auto) 4.97 (1.4-6.5) K/uL Lymph # (Auto) 2.05 (1.2-3.4) K/uL [place] # (Auto) 0.92 H (0.24-0.82) K/uL Eos # (Auto) 0.18 (0-0.50) K/uL Baso # (Auto) 0.09 (0-0.2) K/uL Comprehensive Metabolic Panel 04/22/22 Range/Units 18:55 Sodium 138 (136-145) mmol/L Potassium 3.8 (3.5-5.1) mmol/L Chloride 108 H (98-107) mmol/L Carbon Dioxide 24 (21-32) mmol/L BUN 24 H (6-23) mg/dl Creatinine 1.09 (0.6-1.4) mg/dl Glucose 101 H (70-99(Fasting)) mg/dl Calcium 8.7 (8.5-10.1) mg/dl AST 17 (13-39) U/L ALT 11 (7-52) U/L Alkaline Phosphatase 84 (34-104) U/L Total Protein 6.8 (6.0-8.3) gm/dl Albumin 3.9 (3.4-5.0) gm/dl Intake and Output 04/22/22 04/22/22 04/22/22 06:59 14:59 22:59 Other: Weight 97.8 kg Weight Measurement Method Chair Scale Patient Weight 04/23/22 06:59 Weight 97.8 kg Diagnostic Findings Head CT 04/22/22 18:[address] DOSE: 823.12 mGy.cm HISTORY: weaklloyd and shamaikol TECHNIQUE: Multiaxial CT images of the head were performed without the use of intravenous contrast. Automated exposure control was utilized for this study. A dose lowering technique was utilized adhering to the principles of ALARA. Comparison: Head CT 05/24/2009 Findings: Mild mucosal thickening within the sphenoid sinuses. The mastoid air cells are clear. The calvarium and skull base are intact. There is no mass, hematoma, midline shift, acute infarct. White matter hypodensity is nonspecific but suggestive of microvascular ischemic change. The ventricles and sulci demonstrate mild age-related involutional changes. Impression: No acute intracranial abnormality. Atrophy and microvascular ischemic changes. ACT 112: Negative or not required by law. Electronically signed by: Peter Herring M.D. 04/22/2022 7:28 PM Chest X-Ray 04/22/22 18:07 XR chest 1V portable HISTORY: weakness COMPARISON: Chest 04/21/2022. FINDINGS: No pneumothorax. No pleural effusions. The cardiac silhouette remains mildly enlarged. This mildly tortuous thoracic aorta, unchanged. Stable linear scarlike density within the left lower lung zone. Otherwise, no new focal lung consolidations to suggest pneumonia. No evidence for pulmonary edema. IMPRESSION: No significant change compared to the prior study. No acute process. ACT 112: Negative or not required by law. Electronically signed by: Peter Herring M.D. 04/22/2022 6:30 PM ECG Additional Comments: ecg w/o significant change from previous. qtc is not prolonged. Code Status & VTE Plan Code Status full VTE Prophylaxis Plan VTE Prophylaxis will be ordered: Yes Supervising Physician Co-Signing Physician Notes Attending addendum: I have physically seen this patient, have supervised the medical residents activities, and agree with the H&P unless as otherwise noted. Assessment and Plan: Bilateral hand tremor/generalized weakness- Primarily new onset bilateral intention tremor CT head without acute changes Order MRI brain with and without contrast Differential including cerebellar tremor versus Parkinson's versus essential tremor Consult neurology PT/OT evaluation Remaining orders and notations as noted Resident Activity Tracking Resident Involvement: Resident Care Provided Care Provided: Adult [facility] Medicine
[2022-04-22] MEDS ORDERED: ONDANSETRON INJ 2 MG/ML 2 ML VIAL IV PRN (22:55)
[2022-04-22 23:42] LABS: Appearance Urine Clear (Clear); Bacteria Urine Automated Negative (Negative); Bilirubin Urine Negative (Negative); Blood Urine Negative (Negative); Color Urine Yellow; Glucose Urine UA Negative (Negative); Ketones Urine Trace (Negative); Leukocyte Esterase Urine Negative (Negative); Nitrite Urine Negative (Negative); Protein Urine Trace (Negative); Specific Gravity Urine 1.028 (1.000-1.030); Urobilinogen Urine Negative (Negative)
[2022-04-23] MEDS: VALSARTAN 80 MG TAB PO SCH (06:05)
[2022-04-23] MEDS: LEVOTHYROXINE SODIUM 100 MCG TABLET PO SCH (06:05)
[2022-04-23 06:36] LABS: Hematocrit (blood only) 29.8 % (40.1-51.0); Hemoglobin 8.7 g/dl (14.0-18.0); Mean Corpuscular Hgb Conc 29.2 g/dL (32.0-36.0); Mean Corpuscular Volume 75.4 fL (80.0-100.0); Mean Platelet Volume 8.3 fL (9.4-12.4); Platelet Count 318 K/uL (130-400); RDW Coefficient of Variation 19.2 % (11.5-14.5); RDW Standard Deviation 52.4 fL (36.4-46.3); Red Blood Count 3.95 M/uL (4.63-6.08); Reticulocyte % 1.7 % (0.5-2.0); Reticulocytes # 0.07 10^6/uL (0.02-0.10); White Blood Count 8.74 K/ul (4.8-10.8)
[2022-04-23 06:58] LABS: BUN Creatinine Ratio 26.1 (10-20); Calcium 8.5 mg/dl (8.5-10.1); Est GFR (African American) 90.7 ml/min; Est GFR (Non-African American) 78.3 ml/min; Potassium 3.9 mmol/L (3.5-5.1)
[2022-04-23 07:20] LABS: Folate (Folic Acid) > 22.30 ng/ml (>5.38)
[2022-04-23 07:21] LABS: Vitamin B12 334 pg/ml (180-914)
[2022-04-23] MEDS ORDERED: PANTOprazole 40 MG TAB PO SCH ×2 (09:00→21:00)
[2022-04-23] MEDS ORDERED: ENOXAPARIN INJ 40 MG/0.4 ML SYR SQ SCH (09:00)
--- NOTE | 2022-04-23 09:15 | Electrocardiogram Report ---
Test Reason : Blood Pressure : / mmHG Vent. Rate : 084 BPM Atrial Rate : 084 BPM P-R Int : 188 ms QRS Dur : 096 ms QT Int : 334 ms P-R-T Axes : -02 019 068 degrees QTc Int : 394 ms Poor data quality, interpretation may be adversely affected Normal sinus rhythm Normal ECG When compared with ECG of 21-APR-2022 09:11, No significant change Confirmed by Ollie Gandhi ([id number]) on 04/23/2022 9:15:02 AM Referred By: REFERRED SELF Confirmed By:Ollie Gandhi
--- NOTE | 2022-04-23 09:45 | Neurology Consultation ---
Date of Consultation April 23, 2022 Assessment & Plan (1) Tremor of both hands: (2) Weakness: Plan 82-year-old male with fairly acute onset generalized tremor and weakness, beginning this past , occurring in the context of subacute iron deficiency anemia, dyspnea, rash on the thighs (chigger bites?), evaluation for chest pain in the emergency department 2 days ago. Patient's tremor is primarily of the postural and action type, slightly greater for the right hand, he has an associated head tremor as well. He has difficulty with rapid alternating movements as well as fczh-cj-hkbn bilaterally. He does not appear to have Parkinson's disease or parkinsonism. The acuity of this patient's generalized tremor, with associated generalized weakness and ambulatory dysfunction would tend to speak for an underlying, as of yet undetermined, metabolic, toxic, or infectious process. It is possible that his subacute iron deficiency anemia could be factoring into his tremor and functional decline more recently. He does not appear to be on any medications that would otherwise explain his clinical presentation. He has had a fairly stable normal TSH, probably not toxic on his levothyroxine. The significance of the mild elevation in his total CK is undetermined. I agree that a brain MRI would be useful to evaluate an acute or subacute stroke. I also agree that an alcohol related tremor is unlikely in this patient who does not consume significant alcohol, last alcoholic beverage was at his birthday this past [birth year]. I think it would be reasonable to check Lyme coinfection organisms, anaplasmosis, etc. I agree that treatment with intravenous iron may also help to mitigate his tremor and generalized weakness. I do not think I would initiate symptomatic treatment for his tremor just yet. Would rather await results of MRI, Lyme coinfection testing, as well as treatment of his iron deficiency anemia. If the above evaluation is unremarkable and his tremor persists, could consider treatment with a beta-guille or primidone. Again, I do not think he has Par kinson's disease and I would not recommend a trial of Sinemet, at least at this time. If patient's generalized weakness progresses, would obtain follow-up CK, aldolase, consider outpatient EMG evaluation as well. History of Present Illness Reason for Consultation: tremor Requesting Physician: Fadi Chavira MD Attending Physician: Wayne Deleon MD History of Present Illness The patient is an 82-year-old male who had presented to the emergency department yesterday for further evaluation of generalized weakness and tremor. He reports the symptoms began last , he has unable to walk. His symptoms are generalized. His tremor occurs with action, not at rest, he is not bradykinetic or rigid. No associated headache or vision disturbance. He does not consume alcohol regularly. He was seen in the emergency department the day prior, on April 21, for chest pain. He was seen by Dr. Bellamy, dermatology, on April 19 for a pruritic rash on his thighs, possibly chigger bites. A CT of the head completed yesterday was negative for hemorrhage or acute process. There was evidence of atrophy and chronic microvascular ischemic disease. He does have evidence of a microcytic anemia on recent lab evaluation. Normal TSH and B12 levels, CK mildly elevated, 264. Patient does remark that his brother has a tremor. Again, however, patient's generalized tremor appears to be of fairly acute onset. He did have negative Lyme antibody testing on April 17. Recent SARS-CoV-2 RNA testing negative as well. Allergies Allergy/AdvReac Type Severity Reaction Status Date / Time famotidine Allergy Intermediate Hives Verified 04/22/22 19:09 nitrofurantoin Allergy Intermediate Hives Verified 04/22/22 19:09 Penicillins Allergy Intermediate Hives Verified 04/22/22 19:09 Sulfa (Sulfonamide Allergy Intermediate Hives Verified 04/22/22 19:09 Antibiotics) adhesive AdvReac Intermediate skin tear Verified 04/22/22 19:09 Home Medications Medication Instructions Recorded Confirmed Type tqycjrjmbtug-fjfdhhuk-lsemwk tablet 1 tab PO QPM 07/01/19 04/22/22 History aspirin 81 mg chewable tablet 81 mg PO QAM 07/04/19 04/22/22 History (Katy Chewable Low Dose Aspirin) metronidazole 0.75 % topical gel 1 applic topical HS rash 01/01/20 04/22/22 History triamcinolone acetonide 0.5 % 1 applic topical UD PRN Skin 01/01/20 04/22/22 History topical cream Irritation valsartan 80 mg tablet 80 mg PO QAM 11/21/21 04/22/22 History esomeprazole magnesium 40 mg 40 mg PO QAM #90 caps 02/02/22 04/22/22 Rx capsule,delayed release levothyroxine 100 mcg tablet 100 mcg PO QAM #90 tabs 05/19/22 08/06/22 Rx lovastatin 20 mg tablet 20 mg PO QPM #90 tabs 02/02/22 04/22/22 Rx polyethylene glycol 3350 17 17 g PO HS 04/22/22 04/22/22 History gram/dose oral powder (Miralax) Patient History Medical History Anemia Jose's esophagus GERD (gastroesophageal reflux disease) HLD (hyperlipidemia) [place] (hard of hearing) HTN (hypertension) Hypothyroidism Osteoarthritis Postoperative voiding difficulty Sensorineural hearing loss (SNHL) of both ears Tinnitus Surgical History H/O colonoscopy (08/2018) Hyperplastic polyps, recheck 10 years, [facility] H/O hemorrhoidectomy 1998 H/O rotator cuff surgery R shoulder, April 2021 History of basal cell carcinoma (BCC) excision History of cataract surgery Right: August 2013 Left: September 2013 History of esophagogastroduodenoscopy (EGD) (08/2018) Focal area of Jose's esophagus 36 cm, recheck 3 years, [facility] Family History Brother , age 46 Myocardial infarction Hx of CABG Hypertension Mother Hx of CABG Coronary heart disease Father Lung cancer "behind lungs" Other No family history of adverse response to anesthesia No family history of bleeding disorder Denies family history of Ovarian cancer Prostate cancer Breast cancer Colorectal cancer Social History Smoking Status: Never smoker Tobacco Type: Cigarettes Age Started Using Tobacco: 14; Age Quit Using Tobacco: 69; packs per day: 0.5; Cigarettes Per Day: 10; Second Hand Exposure: No; Hx Alcohol Use: Yes Alcohol type: hard liquor Hx Substance Use: No Preferred Language: Canadian Communication Ability: Effective Visual Impairment: No Limitations Hearing Ability: Normal 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: No Beliefs That Will Affect Care: None marital status: Current Living Situation: Spouse current occupational status: retired current occupation: used to work with [employer] Other Information That Helps Us Care for You: No Feels Safe at Home: Yes Safety Concerns: Feels Safe At This Time Childhood Exposure to Second-Hand Smoke: No Dental Care, Regularly: Yes Physical Activity Frequency: Daily Physical Activity Frequency Comment: walk Seatbelt Use: always Sunscreen Use: No Assistive Devices: Cane Review of Systems Constitutional: no fever and no chills Eyes: no blind spots and no diplopia Ear, Nose, Mouth, Throat: no hearing loss Respiratory: + dyspnea Cardiovascular: no chest pain and no palpitations Gastrointestinal: no nausea and no vomiting Genitourinary: no dysuria Musculoskeletal: no back pain and no myalgia Integumentary: as per Subjective / HPI and + rash Neurologic: as per Subjective / HPI Psychiatric: no depression and no anxiety Hematologic / Lymphatic: no easy bleeding Exam (Neuro) Constitutional: well developed and well nourished; no acute distress Eyes: normal visual matt by confrontation, PERRL, normal accommodation and EOM intact bilaterally; no fundoscopic abnormality, no nystagmus and no papilledema Cardiovascular: Vessels: normal carotid upstroke; no carotid bruit Neurologic: Oriented to:: Person, Place and Time Memory: Short Term Intact and Remote Intact Attention: Span Intact and Concentration Intact Language: Naming Objects and Repeating Phrases Speech Fluency: negative Dysarthria Speech Aphasia: negative Aphasia Fund of Knowledge: Current Events, Past History and Vocabulary Cranial Nerves: Normal II (Visual matt full to confrontation, visual acuity normal), III, IV, (Pupils equal round reactive to light and accommodation, eye movements normal), V (Facial sensation intact), VII (There is no facial droop or weakness), VIII (Hearing intact), IX, X (Palate elevates to midline), XI (Shoulder shrug intact) and XII (Tongue protrudes to midline) Motor Strength: Normal Lower Extremities and Normal Upper Extremities; negative Pronator Drift Motor Tone: Normal Lower Extremities and Normal Upper Extremities Muscle Bulk/Involuntary Movements: Intention Tremor, Action Tremor and Head Tremor; negative Muscle Atrophy or Rest Tremor (Arm) Sensation: Light Touch Intact, Pain/Temperature Intact, Vibration Intact and Proprioception Intact Coordination: Limited Balance, Dysdiadochokinesia, Finger-Nose Abnormal and Heel-Abdi Abnormal Deep Tendon Reflexes: Rt Triceps: 1+, Lt Triceps: 1+, Rt Biceps: 1+, Lt Biceps: 1+, Rt Brachioradialis: 1+, Lt Brachioradialis: 1+, Rt Patellar: 1+, Lt Patellar: 1+, Rt Ankle: 1+ and Lt Ankle: 1+ Special Tests: negative Babinski Present Details: Gait cannot be tested in the context of patient's current neurological status. Results & Data ([facility]) Vital Signs (Past 12 Hours) Vital Signs Temp Pulse Pulse Resp BP BP Pulse Ox 04/23/22 07:47 36.7 C 83 16 171/64 H 95 04/22/22 23:00 36.8 C 99 H 18 177/65 H 99 04/22/22 22:00 78 16 147/82 H 96 04/22/22 21:21 78 14 154/82 H 97 O2 Del Method 04/23/22 07:47 04/22/22 23:00 Room Air 04/22/22 22:00 Room Air 04/22/22 21:21 Room Air Laboratory Results WBC 8.74, hemoglobin 8.7, hematocrit 29.8, MCV 75.4, platelet count 318, sodium 140, potassium 3.9, BUN 24, creatinine 0.92, glucose 92, calcium 8.5, magnesium 2.3, AST 17, ALT 11, total CK2 64, vitamin B12 334, folate greater than 22.30, TSH 2.732, Lyme antibody screening from April 17 was negative, triglycerides 137, cholesterol 135, LDL 71, VLDL 27, HDL 37, iron 26, TIBC 453, unsaturated iron binding capacity 427, ferritin 4.[address] of the head is as described in the history of present illness. I independently reviewed the images. There is mild generalized atrophy, no hydrocephalus. No hemorrhage or acute process. An electrocardiogram reveals a normal sinus rhythm, 84 bpm. Coding Level of Care Code 96886 Initial Inpt Care Lvl 3 Diagnoses Tremor of both hands R25.1 Weakness R53.1
--- NOTE | 2022-04-23 10:59 | XRay Report ---
KUB HISTORY: Clearance for MRI MRI clearance COMPARISON: Acute abdominal series radiographs 06/15/2017 FINDINGS: Nonobstructive bowel gas pattern. No opaque foreign bodies identified No renal calculi. No ureteral calculi. No pneumoperitoneum or pneumatosis. Degenerative changes of the spine, pelvis and h ips. No fracture. IMPRESSION: 1. Nonobstructive bowel gas pattern. 2. No opaque foreign body. ACT 112: Negative or not required by law. The above report was generated using voice recognition software. It may contain grammatical, syntax o r spelling errors. Electronically signed by: Betito Travis M.D. 04/23/2022 10:58 AM
[2022-04-23] MEDS ORDERED: GADOBUTROL 10ML VIAL IV ONE (16:16)
--- NOTE | 2022-04-23 17:17 | Hospitalist Progress Note ---
Date of Service April 23, 2022 Assessment & Plan (1) Tremor of both hands: Plan: Unclear etiology; neurology input noted and appreciated, MRI pending; does not appear to be related to tickborne illnesses but Lyme and Anaplasma ordered (2) Iron deficiency anemia: Plan: Worked up at the time; EGD showed varices and erosive gastropathy; no definite evidence of cirrhosis; colonoscopy showed some diverticuli, hemorrhoids, and polyps; small bowel capsule noncontributory Therefore, exact etiology not certain other than findings on EGD; continue PPI; Given varices abdominal Doppler to look for splenic vein and portal vein thrombosis He declines any form of iron (3) HTN (hypertension): Plan: Home therapy (4) Dyslipidemia: Plan: Continue statin (5) Hypothyroidism: Plan: Continue levothyroxine Admission and Anticipated Discharge Date Admission Date: April 22, 2022 Subjective Follow-up of presentation with involuntary movementsmovements persist Physical Exam Physical Exam: Constitutional and general: No acute distress, looks biologic age Head and face: No puffiness, atraumatic Eyes: No scleral icterus, extraocular movements normal Neck: Supple, no JVD Musculoskeletal: No acute joint swelling, no bony abnormalities Skin/dermatologic/integument: No rash, no purpura Hematologic and lymphatic: pallor +, no petechia Gastrointestinal/abdomen: Nondistended, soft, nonacute Neurologic: Cranial nerves intact, nonfocal; intention tremor like movements of upper extremities Psychiatry: Awake, alert, pleasant, communicative Cardiovascular: Heart rhythm regular, no rub, no murmur, no gallop Respiratory: Chest movements equal, no use of accessory muscles, no adventitious sounds Extremities: No edema, no cyanosis Results & Data Results & Data ([facility]) Vital Signs (Past 12 Hours) Vital Signs Temp Pulse Resp BP Pulse Ox O2 Del Method 04/23/22 15:15 36.8 C 83 16 136/71 96 04/23/22 07:45 Room Air 04/23/22 07:47 36.7 C 83 16 171/64 H 95 Laboratory Results Laboratory Results - last 24 hr 04/22/22 04/22/22 04/22/22 18:55 18:55 18:55 WBC RBC Hgb Hct MCV MCH MCHC RDW Std Deviation RDW Coeff of Razia Plt Count MPV Immature Gran % (Auto) Neut % (Auto) Lymph % (Auto) [place]oux % (Auto) Eos % (Auto) Baso % (Auto) Reticulocyte % (Auto) Neut # (Auto) Lymph # (Auto) [place] # (Auto) Eos # (Auto) Baso # (Auto) Reticulocyte # Immature Gran # (Auto) Peripher Smr Path Cons PT 11.2 INR 1.1 Sodium 138 Potassium 3.8 Chloride 108 H Carbon Dioxide 24 Anion Gap 6 BUN 24 H Creatinine 1.09 Est Cr Clr Drug Dosing 61.3 Est GFR ( Amer) 73.9 Est GFR (Non-Af Amer) 63.8 BUN/Creatinine Ratio 22.0 H Glucose 101 H Lactate 1.0 Calcium 8.7 Magnesium 2.3 Total Bilirubin 1.0 AST 17 ALT 11 Alkaline Phosphatase 84 Lactate Dehydrogenase Total Creatine Kinase 264 H Troponin I High Sens 7.8 Total Protein 6.8 Albumin 3.9 Globulin 2.9 Albumin/Globulin Ratio 1.3 Vitamin B12 Folate TSH Urine Color Urine Appearance Urine pH Ur Specific Vining Urine Protein Urine Glucose (UA) Urine Ketones Urine Blood Urine Nitrite Urine Bilirubin Urine Urobilinogen Ur Leukocyte Esterase Urine WBC (Auto) Urine RBC (Auto) U Hyaline Cast (Auto) U Epithel Cells (Auto) Urine Bacteria (Auto) Stool Occult Bld Scrn SARS-CoV-2, RNA, NAAT 04/22/22 04/22/22 04/22/22 18:55 18:55 18:55 WBC 8.24 RBC 3.94 L Hgb 8.7 L Hct 29.3 L MCV 74.4 L MCH 22.1 L MCHC 29.7 L RDW Std Deviation 51.8 H RDW Coeff of Razia 19.3 H Plt Count 325 MPV 8.3 L Immature Gran % (Auto) 0.4 Neut % (Auto) 60.2 Lymph % (Auto) 24.9 Sioux % (Auto) 11.2 Eos % (Auto) 2.2 Baso % (Auto) 1.1 Reticulocyte % (Auto) Neut # (Auto) 4.97 Lymph # (Auto) 2.05 [place] # (Auto) 0.92 H Eos # (Auto) 0.18 Baso # (Auto) 0.09 Reticulocyte # Immature Gran # (Auto) 0.03 H Peripher Smr Path Cons PT INR Sodium Potassium Chloride Carbon Dioxide Anion Gap BUN Creatinine Est Cr Clr Drug Dosing Est GFR ( Amer) Est GFR (Non-Af Amer) BUN/Creatinine Ratio Glucose Lactate Calcium Magnesium Total Bilirubin AST ALT Alkaline Phosphatase Lactate Dehydrogenase Total Creatine Kinase Troponin I High Sens Total Protein Albumin Globulin Albumin/Globulin Ratio Vitamin B12 Folate TSH 2.732 Urine Color Urine Appearance Urine pH Ur Specific [place] Urine Protein Urine Glucose (UA) Urine Ketones Urine Blood Urine Nitrite Urine Bilirubin Urine Urobilinogen Ur Leukocyte Esterase Urine WBC (Auto) Urine RBC (Auto) U Hyaline Cast (Auto) U Epithel Cells (Auto) Urine Bacteria (Auto) Stool Occult Bld Scrn SARS-CoV-2, RNA, NAAT NEGATIVE 04/22/22 04/23/22 04/23/22 23:20 05:58 05:58 WBC 8.74 RBC 3.95 L Hgb 8.7 L Hct 29.8 L MCV 75.4 L MCH 22.0 L MCHC 29.2 L RDW Std Deviation 52.4 H RDW Coeff of Razia 19.2 H Plt Count 318 MPV 8.3 L Immature Gran % (Auto) Neut % (Auto) Lymph % (Auto) Sioux % (Auto) Eos % (Auto) Baso % (Auto) Reticulocyte % (Auto) 1.7 Neut # (Auto) Lymph # (Auto) [place]oux # (Auto) Eos # (Auto) Baso # (Auto) Reticulocyte # 0.07 Immature Gran # (Auto) Peripher Smr Path Cons SR* PT INR Sodium 140 Potassium 3.9 Chloride 110 H Carbon Dioxide 24 Anion Gap 6 BUN 24 H Creatinine 0.92 Est Cr Clr Drug Dosing 72.0 Est GFR ( Amer) 90.7 Est GFR (Non-Af Amer) 78.3 BUN/Creatinine Ratio 26.1 H Glucose 92 Lactate Calcium 8.5 Magnesium Total Bilirubin AST ALT Alkaline Phosphatase Lactate Dehydrogenase Total Creatine Kinase Troponin I High Sens Total Protein Albumin Globulin Albumin/Globulin Ratio Vitamin B12 Folate TSH Urine Color Yellow Urine Appearance Clear Urine pH 6.0 Ur Specific [place] 1.028 Urine Protein Trace H Urine Glucose (UA) Negative Urine Ketones Trace H Urine Blood Negative Urine Nitrite Negative Urine Bilirubin Negative Urine Urobilinogen Negative Ur Leukocyte Esterase Negative Urine WBC (Auto) 1-5 Urine RBC (Auto) 5-10 H U Hyaline Cast (Auto) 1-5 U Epithel Cells (Auto) 10-20 H Urine Bacteria (Auto) Negative Stool Occult Bld Scrn SARS-CoV-2, RNA, NAAT 04/23/22 04/23/22 04/23/22 05:58 05:58 Unknown WBC RBC Hgb Hct MCV MCH MCHC RDW Std Deviation RDW Coeff of Razia Plt Count MPV Immature Gran % (Auto) Neut % (Auto) Lymph % (Auto) Sioux % (Auto) Eos % (Auto) Baso % (Auto) Reticulocyte % (Auto) Neut # (Auto) Lymph # (Auto) [place] # (Auto) Eos # (Auto) Baso # (Auto) Reticulocyte # Immature Gran # (Auto) Peripher Smr Path Cons PT INR Sodium Potassium Chloride Carbon Dioxide Anion Gap BUN Creatinine Est Cr Clr Drug Dosing Est GFR ( Amer) Est GFR (Non-Af Amer) BUN/Creatinine Ratio Glucose Lactate Calcium Magnesium Total Bilirubin AST ALT Alkaline Phosphatase Lactate Dehydrogenase 124 Total Creatine Kinase Troponin I High Sens Total Protein Albumin Globulin Albumin/Globulin Ratio Vitamin B12 334 Folate > 22.30 TSH Urine Color Urine Appearance Urine pH Ur Specific V[place] Urine Protein Urine Glucose (UA) Urine Ketones Urine Blood Urine Nitrite Urine Bilirubin Urine Urobilinogen Ur Leukocyte Esterase Urine WBC (Auto) Urine RBC (Auto) U Hyaline Cast (Auto) U Epithel Cells (Auto) Urine Bacteria (Auto) Stool Occult Bld Scrn Negative SARS-CoV-2, RNA, NAAT PG Care Time/CCT Total # of Minutes Spent Total Time Spent with Patient: Total time spent is greater than 50% in coordination of care (as documented) at patient's floor/unit and/or counseling patient: Coding Level of Care Code 80819 Subseq Hosp Care Lvl 2 Diagnoses Tremor of both hands R25.1 Iron deficiency anemia D50.9 HTN (hypertension) I10 Dyslipidemia E78.5 Hypothyroidism E03.9
--- NOTE | 2022-04-23 17:34 | Magnetic Resonance Report ---
MR brain wo/w con HISTORY: 82 years-old Male new possible cerebellar tremor. +nystagmus. Acute tremor. COMPARISON: Head CT 04/22/2022 TECHNIQUE: Multiplanar multisequence MRI of the brain was obtained both with and without 9.5 cc Gadav ist. FINDINGS: There is no restricted diffusion to suggest acute or subacute infarct. Midline structures appear unre markable. Degenerative changes of the imaged cervical spine. No acute intracranial hemorrhage, midlin e shift, abnormal extra-axial collection, hydrocephalus or intracranial mass. No pathologic blooming artifact on the T2 star series. Mild involutional changes. Minimal T2/FLAIR hyperintensities througho ut the white matter likely represent chronic microvascular ischemic disease. The mesial temporal lobe s are unremarkable. No evidence of mesial temporal sclerosis, man matter heterotopia or cortical dys plasia. No abnormal enhancement. Cerebral venous sinuses and major arterial flow voids appear patent. Left mastoid effusion. Minimal m ucosal thickening of the paranasal sinuses. Prior bilateral lens repair. The skull and soft tissues a re unremarkable. IMPRESSION: 1. No acute intracranial abnormality. No acute or subacute infarct. 2. No abnormal enhancement. ACT 112: Negative or not required by law. The above report was generated using voice recognition software. It may contain grammatical, syntax o r spelling errors. Dictated: 04/23/2022 4:57 PM Transcribed: 04/23/2022 5:21 PM Chastity [id number] ALLI_Madelyn Electronically signed by: Betito Travis M.D. 04/23/2022 5:32 PM
--- NOTE | 2022-04-23 18:17 | Ultrasound Report ---
US duplex portal hepatic veins HISTORY: 82 years-old Male Varices; please include splenic vein acute upper abdominal pain COMPARISON: CT abdomen 10/18/2021 TECHNIQUE: Multiple real-time sonographic images of the hepatic vessels were obtained assessing judah jonathan appearance, color and spectral flow FINDINGS: Patent hepatic, portal and splenic veins with normal directional flow. IMPRESSION: Unremarkable exam. ACT 112: Negative or not required by law. The above report was generated using voice recognition software. It may contain grammatical, syntax o r spelling errors. Electronically signed by: Betito Travis M.D. 04/23/2022 6:16 PM
[2022-04-23] MEDS ORDERED: Nursing to Pharmacy Communication SCH (19:15)
[2022-04-23 19:45] LABS: Lyme Ab IgG w/WB Rflx Negative (Negative); Lyme Ab IgM w/WB Rflx Negative (Negative)
--- NOTE | 2022-04-23 19:57 | Billing Data ---
Date of Service April 23, 2022 Coding Level of Care Code 57946 Initial Inpt Care Lvl 2
[2022-04-23] MEDS ORDERED: LOVASTATIN 20 MG TAB PO SCH (21:00)
[2022-04-23] MEDS: POLYETHYLENE (MIRALAX) 17 GM PACK PO SCH (21:55)
[2022-04-24 06:37] LABS: Basophils # (auto) 0.08 K/uL (0-0.2); Eosinophils # (auto) 0.45 K/uL (0-0.50); Eosinophils % (auto) 5.5 %; Hematocrit (blood only) 30.4 % (40.1-51.0); Hemoglobin 8.9 g/dl (14.0-18.0); Immature Granulocytes # (auto) 0.04 K/uL (0.00-0.02); Immature Granulocytes % (auto) 0.5 %; Lymphocytes % (auto) 18.2 %; Mean Corpuscular Hemoglobin 22.1 pg (25.0-34.0); Mean Corpuscular Hgb Conc 29.3 g/dL (32.0-36.0); Mean Corpuscular Volume 75.4 fL (80.0-100.0); Mean Platelet Volume 8.1 fL (9.4-12.4); Monocytes # (auto) 0.94 K/uL (0.24-0.82); Monocytes % (auto) 11.4 %; Neutrophils # (auto) 5.21 K/uL (1.4-6.5); Neutrophils % (auto) 63.4 %; Platelet Count 302 K/uL (130-400); RDW Coefficient of Variation 19.1 % (11.5-14.5); Red Blood Count 4.03 M/uL (4.63-6.08); White Blood Count 8.22 K/ul (4.8-10.8)
[2022-04-24] MEDS: VALSARTAN 80 MG TAB PO SCH (06:41)
[2022-04-24] MEDS: LEVOTHYROXINE SODIUM 100 MCG TABLET PO SCH (06:41)
[2022-04-24] MEDS: PANTOprazole 40 MG TAB PO SCH (06:42)
[2022-04-24 07:14] LABS: Albumin Globulin Ratio 1.2 (0.9-2); Albumin Level 3.7 gm/dl (3.4-5.0); BUN Creatinine Ratio 20.7 (10-20); Bilirubin,Total 1.1 mg/dl (0.2-1.0); Calcium 8.6 mg/dl (8.5-10.1); Creatinine Clr Calc Pharmacy 76.2 ml/min; Est GFR (African American) 94.5 ml/min; Est GFR (Non-African American) 81.5 ml/min; Globulin 3.1 gm/dl (2.5-4.0); Magnesium 2.2 mg/dl (1.7-2.4); Phosphorus 3.6 mg/dl (2.5-4.9); Potassium 3.9 mmol/L (3.5-5.1); Total Protein 6.8 gm/dl (6.0-8.3)
[2022-04-24] MEDS ORDERED: IRON SUCROSE 300 MG in SODIUM CHLORIDE 0.9% 250 ML IV ONE (08:20)
--- NOTE | 2022-04-24 08:23 | Hospitalist Progress Note ---
Date of Service April 24, 2022 Assessment & Plan (1) Tremor of both hands: Plan: 82 year old male w/ PMHx of subacute iron-deficiency anemia, HTN, HLD, hypothyroidism, and Jose's who presents w/ new onset intention tremors, ambulatory dysfunction and generalized weakness as well as reported shortness of breath/chest tightness (was in ER / for chest tightness, requesting maaloox) Neurology consulted Head CT negative MRI brain and cervical spine given nystagmus reported -- NEGATIVE Lyme testing/Anaplasmosis smear negative Adding babesiosis as well Tx MARY as below Ammonia level wnl -- denies etoh use, last drink February. B12/folate wnl however B12 borderline and placed on low dose PO supplementation Does have rash to upper thigh/knee -- not bullseye in appearance. Reported itchy but not itching lesions. Denied need for topical steroid presently New meds only with switch from MARY to valsartan due to reported cough, however rash started on , ?if too early testing for Lyme Await lyme testing/tx iron deficiency prior to considering BB or primidone for tremor, but doesn't not think has parkinson's disease and no trial sinemet at this time If weakness progresses, repeat CK/aldolase and consider EMG outpatient SHORTNESS OF BREATH (In review, was also in ER for SOB/chest tightness earlier last week and sent home. Trop negative on admit. EKG NSR) Per patient, had been having worsening shortness of breath on exertion since about December/January earlier this year (also reports having b/l shoulders operated on) and wasn't able to see PCP until February when hgb found to be low CXR with slight enlargement in cardiac silhouette, no focal pneumonia or volume overload * Iron panel SEVERE deficiency (had negative egd/c-scope/pill endoscopy) -- IRON 26, TIBC elevated 45, trans sat % LOW 6%, ferritin 4. LDH not elevated. Peripheral smear microcytic anemia * Stated had taken PO Iron for couple days in the past and had significant se cristy painful constipation requiring trip to ER for relief * Lengthy discussion undertaken due to refused Iron yesterday supposedly for fears of constipation but discussed IV and he was willing to trial 200mg dose and if tolerates will order 300mg IV tomorrow to see if any improvement in tremors * Will also check ECHO * Messaged this afternoon stated ER doctor rec f/u outpt with cards, will place consult while inpatient given above PT/OT consulted (2) Iron deficiency anemia: Plan: Subacute x 5-6 months (although appears to have been going on at least over past year or two with low hgb values), workup started as outpatient, including 10/2021 colonoscopy and 02/2022 capsule endoscopy. Slightly microcytic. Severe iron deficiency -- Not tolerating PO iron in past due to constipation Outpt work up included c-scope/egd, pill endoscopy B12 borderline, 500mcg daily ordered Folate wnl LDH not elevated at 124, peripheral smear without signifc finding Iron w/ severe --> Venofer IV x 1 for 04/24, repeat for tomorrow/monitor tremor Hemococcult stool as above - with hx of Jose's and esophageal varices, esophageal malignancy is on differential (3) Dyspnea on exertion: Plan: - x3 months, reportedly was able to walk a mile daily with his up until earlier this year, currently only able to go about 2 blocks. distant tobacco use With reported chest tightness last week, no further CP currently but endorses SOB on exertion EKG w/ CP Venofer IV as above ECHO ordered, cards consulted (4) Anemia: Plan: Subacute x 5-6 months. Slightly microcytic. Severe iron deficiency per 04/17/22 outpatient workup. Not tolerating PO iron. Consider dose of IV Venofer - check b12, folate, hemolysis labs, peripheral smear - order hemmocult stool - with hx of Jose's and esophageal varices, esophageal malignancy is on differential (5) Generalized weakness: Plan: Multifactorial Iron deficiency anemia, possible viral mediated rash vs drug reaction vs other Venofer IV ordered, Echo/cards PT/OT consulted (6) Rash: Plan: reportedly starting on , however dermatology notes state started around April 08 after mowing outside and possible bite reaction/chigger bites. Consider f/u Dr Bellamy after discharge as continued but appear healing in some upper areas but newer lesion to posterior R knee (7) Hypertension: Plan: Chronic On valsartan daily Chronic, continue home valsartan. (8) Dyslipidemia: Plan: Chronic, continue home lovastatin. (9) Hypothyroidism: Plan: Chronic, continue home levothyroxine. (10) Barretts esophagus: Plan: Chronic, continue PPI. EGD last year w/ grade 3 esophageal varices. (11) Constipation: Plan: Chronic, continue home miralax qhs. Plan Diet, fluids: low Na. No IV fluids. ppx: Lovenox SQ code: full dispo: med/surg Admission and Anticipated Discharge Date Admission Date: April 22, 2022 Supervising Physician Co-Signing Physician Notes Attending Attestation - Chart reviewed in detail, care plan d/w PA Alina Ann. I agree w/ the serna components of her documentation. I did speak with Dr Jamison late in the day - tentative plans for stress test tomorrow in light of pulmonary complaints (MARQUEZ, etc). Consider mirapex or requip -- with his severe Fe def could be having movement d/o such as RLS/PLMD. Luke Rich MD Subjective evaluated this morning, still tremulous refused Venofer yesterday, discussed with patient today regarding why. He states took PO previously with miralax and developed terrible constipation. Discussed IV with less effects. He would like to try lower dose to see how he tolerates it. He states back in January started with increased shortness back in January but didn't get into his PCP until February. Used to walk a mile with his but recently only able to do 2 blocks. Denied having ECHO, but states Marianela got him into GI for EGD/c-scope/pill endoscopy without prior evidence for bleeding seen. He states on he developed a rash to his upper thighs. Endorses is itchy, couple new spots to thigh, one to posterior R knee medially. No tick b ites known but did check Lyme/Anaplasmosis smear. No new meds, but did state switched from MARY to valsartan (had been on MARY for a while) due to reported cough. Also notes prior both shoulder surgeries this year, wondering if tremor from pinched nerve, last in November around [facility] for his R shoulder, however tremors also present to LE as well. Discussed checking echo, Venofer IV and monitor response. If no improvement in tremor. Review of Systems Review of Systems: All systems reviewed & are unremarkable except as noted in HPI & below Physical Exam Physical Exam: General: elderly frail male sitting up at edge of bed eating breakfast, NAD, general pallor noted HEENT: head normocephalic, atraumatic, pupils equal and reactive, no nystagmus, trachea midline without deviation Resp: CTAB, diminished in the bases with bibasilar crackles, no wheezing, on room air CV: RRR (occasional extra beat), faint systolic murmur, no r/g, no pitting edema/calf tenderness, trace pedal edema (legs dangling off side of bed) GI: +BS, soft nontender : no blancas MSK/Neuro: decreased DTRs throughout, gait not tested due to instability, finger-nose and heel-hayden abnormal, b/l UE and b/l LE tremor, worsened with movement Skin: scattered rash to upper thigh (worse on the right), one ~.5-1cm lesion medial groin without central clearing/slightly hardened, additional reddened annular type lesion to posterior medial RIGHT knee Results & Data Results & Data ([facility]) Vital Signs (Past 12 Hours) Vital Signs Temp Pulse Resp BP Pulse Ox O2 Del Method 04/24/22 07:54 36.5 C 78 16 143/71 H 96 04/24/22 06:40 78 16 161/75 H 96 04/23/22 23:16 37.1 C 76 18 143/68 H 95 Room Air Laboratory Results 04/24/22 04/24/22 04/24/22 Range/Units 10:58 10:58 10:58 WBC (4.8-10.8) K/ul RBC (4.63-6.08) M/uL Hgb (14.0-18.0) g/dl Hct (40.1-51.0) % MCV (80.0-100.0) fL MCH (25.0-34.0) pg MCHC (32.0-36.0) g/dL RDW Std Deviation (36.4-46.3) fL RDW Coeff of Razia (11.5-14.5) % Plt Count (130-400) K/uL MPV (9.4-12.4) fL Immature Gran % (Auto) % Neut % (Auto) % Lymph % (Auto) % Douglas % (Auto) % Eos % (Auto) % Baso % (Auto) % Neut # (Auto) (1.4-6.5) K/uL Lymph # (Auto) (1.2-3.4) K/uL Douglas # (Auto) (0.24-0.82) K/uL Eos # (Auto) (0-0.50) K/uL Baso # (Auto) (0-0.2) K/uL Immature Gran # (Auto) (0.00-0.02) K/uL Peripher Smr Path Cons Sodium (136-145) mmol/L Potassium (3.5-5.1) mmol/L Chloride (98-107) mmol/L Carbon Dioxide (21-32) mmol/L Anion Gap (3-11) BUN (6-23) mg/dl Creatinine (0.6-1.4) mg/dl Est Cr Clr Drug Dosing ml/min Est GFR ( Amer) ml/min Est GFR (Non-Af Amer) ml/min BUN/Creatinine Ratio (10-20) Glucose (70-99(Fasting)) mg/dl Calcium (8.5-10.1) mg/dl Phosphorus (2.5-4.9) mg/dl Magnesium (1.7-2.4) mg/dl Total Bilirubin (0.2-1.0) mg/dl AST (13-39) U/L ALT (7-52) U/L Alkaline Phosphatase (34-104) U/L Ammonia 26.0 (18-72) umol/L Total Protein (6.0-8.3) gm/dl Albumin (3.4-5.0) gm/dl Globulin (2.5-4.0) gm/dl Albumin/Globulin Ratio (0.9-2) Stool Occult Bld Scrn (Negative) Anaplasma Smear See Comment Babesia Smear See Comment Babesia microti DNA PCR Pending Lyme Disease IgG Ab (Negative) Lyme Disease IgM Ab (Negative) 04/24/22 04/24/22 04/23/22 Range/Units 06:14 06:14 Unknown WBC 8.22 (4.8-10.8) K/ul RBC 4.03 L (4.63-6.08) M/uL Hgb 8.9 L (14.0-18.0) g/dl Hct 30.4 L (40.1-51.0) % MCV 75.4 L (80.0-100.0) fL MCH 22.1 L (25.0-34.0) pg MCHC 29.3 L (32.0-36.0) g/dL RDW Std Deviation 52.0 H (36.4-46.3) fL RDW Coeff of Razia 19.1 H (11.5-14.5) % Plt Count 302 (130-400) K/uL MPV 8.1 L (9.4-12.4) fL Immature Gran % (Auto) 0.5 % Neut % (Auto) 63.4 % Lymph % (Auto) 18.2 % Douglas % (Auto) 11.4 % Eos % (Auto) 5.5 % Baso % (Auto) 1.0 % Neut # (Auto) 5.21 (1.4-6.5) K/uL Lymph # (Auto) 1.50 (1.2-3.4) K/uL Douglas # (Auto) 0.94 H (0.24-0.82) K/uL Eos # (Auto) 0.45 (0-0.50) K/uL Baso # (Auto) 0.08 (0-0.2) K/uL Immature Gran # (Auto) 0.04 H (0.00-0.02) K/uL Peripher Smr Path Cons Sodium 139 (136-145) mmol/L Potassium 3.9 (3.5-5.1) mmol/L Chloride 107 (98-107) mmol/L Carbon Dioxide 24 (21-32) mmol/L Anion Gap 8 (3-11) BUN 18 (6-23) mg/dl Creatinine 0.87 (0.6-1.4) mg/dl Est Cr Clr Drug Dosing 76.2 ml/min Est GFR ( Amer) 94.5 ml/min Est GFR (Non-Af Amer) 81.5 ml/min BUN/Creatinine Ratio 20.7 H (10-20) Glucose 93 (70-99(Fasting)) mg/dl Calcium 8.6 (8.5-10.1) mg/dl Phosphorus 3.6 (2.5-4.9) mg/dl Magnesium 2.2 (1.7-2.4) mg/dl Total Bilirubin 1.1 H (0.2-1.0) mg/dl AST 18 (13-39) U/L ALT 11 (7-52) U/L Alkaline Phosphatase 79 (34-104) U/L Ammonia (18-72) umol/L Total Protein 6.8 (6.0-8.3) gm/dl Albumin 3.7 (3.4-5.0) gm/dl Globulin 3.1 (2.5-4.0) gm/dl Albumin/Globulin Ratio 1.2 (0.9-2) Stool Occult Bld Scrn Negative (Negative) Anaplasma Smear Babesia Smear Babesia microti DNA PCR Lyme Disease IgG Ab (Negative) Lyme Disease IgM Ab (Negative) 04/23/22 04/23/22 04/23/22 Range/Units 19:12 05:58 05:58 WBC (4.8-10.8) K/ul RBC (4.63-6.08) M/uL Hgb (14.0-18.0) g/dl Hct (40.1-51.0) % MCV (80.0-100.0) fL MCH (25.0-34.0) pg MCHC (32.0-36.0) g/dL RDW Std Deviation (36.4-46.3) fL RDW Coeff of Razia (11.5-14.5) % Plt Count (130-400) K/uL MPV (9.4-12.4) fL Immature Gran % (Auto) % Neut % (Auto) % Lymph % (Auto) % Douglas % (Auto) % Eos % (Auto) % Baso % (Auto) % Neut # (Auto) (1.4-6.5) K/uL Lymph # (Auto) (1.2-3.4) K/uL Douglas # (Auto) (0.24-0.82) K/uL Eos # (Auto) (0-0.50) K/uL Baso # (Auto) (0-0.2) K/uL Immature Gran # (Auto) (0.00-0.02) K/uL Peripher Smr Path Cons See Comment Sodium (136-145) mmol/L Potassium (3.5-5.1) mmol/L Chloride (98-107) mmol/L Carbon Dioxide (21-32) mmol/L Anion Gap (3-11) BUN (6-23) mg/dl Creatinine (0.6-1.4) mg/dl Est Cr Clr Drug Dosing ml/min Est GFR ( Amer) ml/min Est GFR (Non-Af Amer) ml/min BUN/Creatinine Ratio (10-20) Glucose (70-99(Fasting)) mg/dl Calcium (8.5-10.1) mg/dl Phosphorus (2.5-4.9) mg/dl Magnesium (1.7-2.4) mg/dl Total Bilirubin (0.2-1.0) mg/dl AST (13-39) U/L ALT (7-52) U/L Alkaline Phosphatase (34-104) U/L Ammonia (18-72) umol/L Total Protein (6.0-8.3) gm/dl Albumin (3.4-5.0) gm/dl Globulin (2.5-4.0) gm/dl Albumin/Globulin Ratio (0.9-2) Stool Occult Bld Scrn (Negative) Anaplasma Smear See Comment Babesia Smear Babesia microti DNA PCR Lyme Disease IgG Ab Negative (Negative) Lyme Disease IgM Ab Negative (Negative) PG Care Time/CCT Total # of Minutes Spent Total Time Spent with Patient: Total time spent is greater than 50% in coordination of care (as documented) at patient's floor/unit and/or counseling patient: Coding Level of Care Code 98120 Subseq Hosp Care Lvl 3 Diagnoses Tremor of both hands R25.1 Iron deficiency anemia D50.9 Dyspnea on exertion R06.09 Anemia D64.9 Generalized weakness R53.1 Rash R21 Hypertension I10 Dyslipidemia E78.5 Hypothyroidism E03.9 Barretts esophagus K22.70 Constipation K59.00
[2022-04-24] MEDS ORDERED: IRON SUCROSE 200 MG in 0.9 % SODIUM CHLORIDE 100 ML IV ONE (10:30)
[2022-04-24] MEDS: CYANOCOBALAMIN (B-12) 500 MCG TABLET PO SCH (11:53)
--- NOTE | 2022-04-24 14:00 | Neurology Progress Note ---
Date of Service April 24, 2022 Assessment & Plan (1) Tremor of both hands: (2) Iron deficiency anemia: Plan: Patient continues to exhibit a mild to moderate bilateral upper extremity postural/action tremor, mild associated head tremor. No pill-rolling resting tremor, rigidity, or bradykinesia. His tremor does resemble benign essential tremor rather than Parkinson's disease. Brain MRI not suggestive of structural cerebellar disease or cerebellar stroke. Patient does have a brother with tremor. I wonder if he may have an underlying tendency for essential tremor which has perhaps been aggravated by his iron deficiency anemia. Perhaps patient's tremor will improve over the next few weeks with treatment of his anemia. I did discuss potential symptomatic treatment options directly with the patient today including a trial of either propranolol or primidone for tremor dampening. I think either medication could potentially be utilized in his case. However, for the time being, patient would rather hold off on symptomatic treatment. Patient may follow-up with me or one of our SALLY's in neurology clinic in 3 to 4 weeks after discharge. Admission and Anticipated Discharge Date Admission Date: April 22, 2022 Subjective Follow-up for tremor Patient continues to complain of a mild to moderate bilateral upper extremity postural/action tremor, slight head tremor as well. I did independently review the images pertaining to his brain MRI which was completed yesterday. No evidence for acute or subacute infarct. No hydrocephalus. No focal cerebellar atrophy. There is minimal chronic microvascular ischemic disease. No specific findings that would explain patient's tremor. Tickborne illness labs completed as well, no abnormalities. Patient has began treatment for iron deficiency anemia with IV iron. He is also on oral B12 supplementation in addition to thyroid medication. Review of Systems Constitutional: no fever and no chills Eyes: no blind spots and no diplopia Neurologic: as per Subjective / HPI and + tremor(s); no localized weakness, no headache(s), no confusion and no memory loss Results & Data ([facility]) Vital Signs (Past 12 Hours) Vital Signs Temp Pulse Resp BP BP Pulse Ox O2 Del Method 04/24/22 12:35 Room Air 04/24/22 12:32 37.2 C 88 17 167/77 H 94 04/24/22 11:54 36.8 C 91 H 17 114/68 04/24/22 07:54 36.5 C 78 16 143/71 H 96 04/24/22 06:40 78 16 161/75 H 96 Laboratory Results WBC 8.22, hemoglobin 8.9, hematocrit 30.4, MCV 75.4, platelet count 302, sodium 139, potassium 3.9, BUN 18, creatinine 0.87, glucose 93, calcium 8.6, magnesium 2.2, AST 18, ALT 11, ammonia 26.0, vitamin B12 334, folate greater than 22.30, Anaplasma and Babesia smears negative, Lyme screening negative. Diagnostic Findings Brain MRI negative for acute process. I independently reviewed the images, as described in subjective. No findings that would explain tremor. Exam (Neuro) Neurologic: Oriented to:: Person, Place and Time Memory: Short Term Intact and Remote Intact Speech Fluency: negative Dysarthria or Dysfluency Fund of Knowledge: Vocabulary Cranial Nerves: Normal II, III, IV, and VII Motor Strength: Normal Lower Extremities and Normal Upper Extremities Muscle Bulk/Involuntary Movements: Intention Tremor, Action Tremor and Head Tremor; negative Pill Rolling Tremor Coordination: Normal; negative Finger-Nose Abnormal PG Care Time/CCT Total # of Minutes Spent Total Time Spent with Patient: Total time spent is greater than 50% in coordination of care (as documented) at patient's floor/unit and/or counseling patient: Coding Level of Care Code 23975 Subseq Hosp Care Lvl 2 Diagnoses Tremor of both hands R25.1 Iron deficiency anemia D50.9
--- NOTE | 2022-04-24 14:01 | XCELERA ---
[id number]
[2022-04-24] MEDS ORDERED: DOCUSATE SODIUM/SENNA 50/8.6MG TAB PO ONE (16:00)
[2022-04-24] MEDS: LOVASTATIN 20 MG TAB PO SCH (17:47)
--- NOTE | 2022-04-24 18:06 | Communication Note ---
Date of Service: April 24, 2022 I presented to the bedside for cardiology consultation. He declined consultation today. He said he may be willing tomorrow. Primary hospitalist team and ordering provider (Seth) notified. If no contraindication, can consider non-invasive ischemic evaluation.
[2022-04-24] MEDS: rOPINIRole HCL 0.25 MG TABLET PO SCH (22:09)
[2022-04-24] MEDS: POLYETHYLENE (MIRALAX) 17 GM PACK PO SCH (22:09)
--- NOTE | 2022-04-25 07:17 | Hospitalist Progress Note ---
Date of Service April 25, 2022 Assessment & Plan (1) Atrial fibrillation with RVR: Plan: Presented with new onset intention tremors, ambulatory dysfunction and generalized weakness. Was also seen in ER 8/5 for chest tightness and SHORTNESS OF BREATH * EKG on admit without arrhythmia, patient denied symptoms of palpitations but did endorse feeling lightheaded at times at home and progressive dyspnea on exertion when he used to walk 1 mile daily up until January when it was reduced to 2 blocks daily. Occurring morning 04/25 around 945am became diaphoretic, complaints of chest tightness and lightheadedness. HR to 160s, BP stable though at 121/66 at present EKG performed which showed Afib w/ RVR with rates to 141bpm Not on BB, ordered PO metoprolol x 1 now and transferring to monitored bed. Lopressor IV available for continued elevated HR Venofer IV for 2nd dose for severe iron deficiency anemia * IRON 26, TIBC elevated 45, trans sat % LOW 6%, ferritin 4 (Requip x 1 last evening for component RLS). LDH not elevated. Peripheral smear microcytic anemia ECHO 04/24 w/ normal LV size/function and EF 60-65%. No mwa Cardiology consulted -- to see today as patient declined eval yesterday, appreciate assistance TSH wnl on check, however taking w/ AM PPI and valsartan at home, ?over treatment * Will check T4/T3 given tremors on admission but also noted ferritin low at 4 and component RLS. Mag 2.2, K 4.0 Will also check troponin given complaints of chest tightness, nitro prn Continued inpatient stay (2) Tremor of both hands: Plan: 82 year old male w/ PMHx of subacute iron-deficiency anemia, HTN, HLD, hypothyroidism, and Jose's who presents w/ new onset intention tremors, ambulatory dysfunction and generalized weakness as well as reported shortness of breath/chest tightness (was in ER 8/5 for chest tightness, requesting maaloox) Neurology consulted Head CT negative MRI brain and cervical spine given nystagmus reported -- NEGATIVE Lyme testing/Anaplasmosis smear negative Adding babesiosis as well Tx MARY as below Ammonia level wnl -- denies etoh use, last drink February. B12/folate wnl however B12 borderline -- B12 PO supp Does have rash to upper thigh/knee --not bulls-eye in appearance. Reported itchy but not itching lesions. Denied need for topical steroid presently -- New meds only with switch from MARY to valsartan due to reported cough, however rash started on , per patient (however Derm note starting in March, chiggers from mowing), ?if too early testing for Lyme Await lyme testing/tx iron deficiency prior to considering BB or primidone for tremor, but doesn't not think has parkinson's disease and no trial sinemet at this time NEEDING to add BB given afib, ?if afib contributing to tremors, not seen on admit but possible paroxysmal in nature? If weakness progresses, repeat CK/aldolase and consider EMG outpatient Also checking RPR given trace AI on ECHO and tremors PT/OT consulted (3) Iron deficiency anemia: Plan: Subacute x 5-6 months (although appears to have been going on at least over past year or two with low hgb values), workup started as outpatient, including 10/2021 colonoscopy and 02/2022 capsule endoscopy. Slightly microcytic. Severe iron deficiency -- not tolerating PO iron in past due to constipation Outpt work up included c-scope/egd, pill endoscopy B12 borderline, 500mcg daily ordered Folate wnl LDH not elevated at 124, peripheral smear without signifc finding Iron w/ severe --> Venofer IV x 1 for 04/24, repeat for tomorrow/monitor tremor Hemoccult stool as above - with hx of Jose's and esophageal varices, esophageal malignancy is on differential (4) Dyspnea on exertion: Plan: - x3 months, reportedly was able to walk a mile daily with his up until earlier this year, currently only able to go about 2 blocks. distant tobacco use With reported chest tightness last week, no further CP currently but endorses SOB on exertion EKG w/ CP Venofer IV as above ECHO ordered, cards consulted. Consider dobutamine echo Now w/ afib RVR as above Mag wnl (5) Anemia: Plan: Subacute x 5-6 months. Slightly microcytic. Severe iron deficiency per 04/17/22 outpatient workup. Not tolerating PO iron. Consider dose of IV Venofer - check b12, folate, hemolysis labs, peripheral smear - order hemmocult stool - with hx of Jose's and esophageal varices, esophageal malignancy is on differential (6) Generalized weakness: Plan: Multifactorial Iron deficiency anemia, possible viral mediated rash vs drug reaction vs other Venofer IV ordered, Echo/cards PT/OT consulted (7) Rash: Plan: reportedly starting on , however dermatology notes state started around April 08 after mowing outside and possible bite reaction/chigger bites. Consider f/u Dr Bellamy after discharge as continued but appear healing in some upper areas but newer lesion to posterior R knee (8) Hypertension: Plan: Chronic On valsartan daily, placed on hold for lower BP/dehydration (9) Dyslipidemia: Plan: Chronic, continue home lovastatin. (10) Hypothyroidism: Plan: Chronic, continue home levothyroxine. (11) Barretts esophagus: Plan: Chronic, continue PPI. EGD last year w/ grade 3 esophageal varices. (12) Constipation: Plan: Chronic, continue home miralax qhs. Lovenox SQ for DVT prophylaxis Plan moving to telemetry Admission and Anticipated Discharge Date Admission Date: April 22, 2022 Supervising Physician Co-Signing Physician Notes PA Supervision Note: I did not personally see or examine the patient today, but I verified all serna points of COSTA Ann's assessment and plan with the following exceptions/additions: None Subjective This morning getting cleaned up and attempting to have BM after sitting up in the chair eating breakfast patient started complaining of shortness of breath getting up and moving around. He states he broke out in a sweat at the same time and is having epigastric discomfort without radiation currently not relieved by belching as previously at home. He does feel palpitations and fluttering in his chest which is new from days prior. Pulses fainter and HR elevated to 120-160/170s and EKG obtained which showed afib. Endorses "chest pressure" relieved with belching. +SOB, worse with ambulation. Does take Synthroid, TSH wnl but does take in AM with his valsartan and PPI. Will also check T4/t3 given TSH wnl and educated on correct way to take it. Review of Systems Review of Systems: All systems reviewed & are unremarkable except as noted in HPI & below Physical Exam Physical Exam: General: WD male laying in bed, anxious appearing and complaining of epigastric chest tightness HEENT: head normocephalic, atraumatic, mmm, trachea midline without deviation Chest: chest pain not reproducible on palpation Resp: CTAB, no w/c, on room air CV: irregularly irregular, rate 140bpm, faint systolic murmur, no edema/calf tenderness, pulses faint GI: +BS, soft, nontender : no blancas MSK/Neuro: moves all extremities, less tremulous today b/l UE and LE, no focal deficit Skin: warm, dry, scattered lesions to upper thighs (improved from day prior) Results & Data Results & Data ([facility]) Vital Signs (Past 12 Hours) Vital Signs Temp Pulse Resp BP Pulse Ox O2 Del Method 04/25/22 05:41 36.9 C 89 20 137/71 98 Room Air 04/24/22 22:44 37.1 C 67 16 130/69 96 Room Air Laboratory Results 04/25/22 04/25/22 04/24/22 Range/Units 08:09 08:09 10:58 WBC 8.03 (4.8-10.8) K/ul RBC 4.15 L (4.63-6.08) M/uL Hgb 9.3 L (14.0-18.0) g/dl Hct 31.4 L (40.1-51.0) % MCV 75.7 L (80.0-100.0) fL MCH 22.4 L (25.0-34.0) pg MCHC 29.6 L (32.0-36.0) g/dL RDW Std Deviation 52.0 H (36.4-46.3) fL RDW Coeff of Razia 19.9 H (11.5-14.5) % Plt Count 322 (130-400) K/uL MPV 8.3 L (9.4-12.4) fL Immature Gran % (Auto) 1.0 % Neut % (Auto) 66.5 % Lymph % (Auto) 15.1 % [place] % (Auto) 11.5 % Eos % (Auto) 4.9 % Baso % (Auto) 1.0 % Neut # (Auto) 5.35 (1.4-6.5) K/uL Lymph # (Auto) 1.21 (1.2-3.4) K/uL [place] # (Auto) 0.92 H (0.24-0.82) K/uL Eos # (Auto) 0.39 (0-0.50) K/uL Baso # (Auto) 0.08 (0-0.2) K/uL Immature Gran # (Auto) 0.08 H (0.00-0.02) K/uL Sodium 137 (136-145) mmol/L Potassium 4.0 (3.5-5.1) mmol/L Chloride 106 (98-107) mmol/L Carbon Dioxide 23 (21-32) mmol/L Anion Gap 8 (3-11) BUN 22 (6-23) mg/dl Creatinine 0.94 (0.6-1.4) mg/dl Est Cr Clr Drug Dosing 70.5 ml/min Est GFR ( Amer) 88.4 ml/min Est GFR (Non-Af Amer) 76.3 ml/min BUN/Creatinine Ratio 23.4 H (10-20) Glucose 86 (70-99(Fasting)) mg/dl Calcium 8.8 (8.5-10.1) mg/dl Magnesium 2.2 (1.7-2.4) mg/dl Total Bilirubin 1.0 (0.2-1.0) mg/dl AST 20 (13-39) U/L ALT 14 (7-52) U/L Alkaline Phosphatase 81 (34-104) U/L Ammonia (18-72) umol/L Total Creatine Kinase 274 H (30-223) U/L Total Protein 7.0 (6.0-8.3) gm/dl Albumin 3.8 (3.4-5.0) gm/dl Globulin 3.2 (2.5-4.0) gm/dl Albumin/Globulin Ratio 1.2 (0.9-2) Anaplasma Smear Babesia Smear Babesia microti DNA PCR Pending 04/24/22 04/24/22 Range/Units 10:58 10:58 WBC (4.8-10.8) K/ul RBC (4.63-6.08) M/uL Hgb (14.0-18.0) g/dl Hct (40.1-51.0) % MCV (80.0-100.0) fL MCH (25.0-34.0) pg MCHC (32.0-36.0) g/dL RDW Std Deviation (36.4-46.3) fL RDW Coeff of Razia (11.5-14.5) % Plt Count (130-400) K/uL MPV (9.4-12.4) fL Immature Gran % (Auto) % Neut % (Auto) % Lymph % (Auto) % [place] % (Auto) % Eos % (Auto) % Baso % (Auto) % Neut # (Auto) (1.4-6.5) K/uL Lymph # (Auto) (1.2-3.4) K/uL [place] # (Auto) (0.24-0.82) K/uL Eos # (Auto) (0-0.50) K/uL Baso # (Auto) (0-0.2) K/uL Immature Gran # (Auto) (0.00-0.02) K/uL Sodium (136-145) mmol/L Potassium (3.5-5.1) mmol/L Chloride (98-107) mmol/L Carbon Dioxide (21-32) mmol/L Anion Gap (3-11) BUN (6-23) mg/dl Creatinine (0.6-1.4) mg/dl Est Cr Clr Drug Dosing ml/min Est GFR ( Amer) ml/min Est GFR (Non-Af Amer) ml/min BUN/Creatinine Ratio (10-20) Glucose (70-99(Fasting)) mg/dl Calcium (8.5-10.1) mg/dl Magnesium (1.7-2.4) mg/dl Total Bilirubin (0.2-1.0) mg/dl AST (13-39) U/L ALT (7-52) U/L Alkaline Phosphatase (34-104) U/L Ammonia 26.0 (18-72) umol/L Total Creatine Kinase (30-223) U/L Total Protein (6.0-8.3) gm/dl Albumin (3.4-5.0) gm/dl Globulin (2.5-4.0) gm/dl Albumin/Globulin Ratio (0.9-2) Anaplasma Smear See Comment Babesia Smear See Comment Babesia microti DNA PCR Diagnostic Findings ECHO Normal LV size and function. EF 60-65%. No regional wma. Moderate concentric LVH. Trace aortic regurgitation. normal RVSP. No change from prior echo 2010. PG Care Time/CCT Total # of Minutes Spent Total Time Spent with Patient: Total time spent is greater than 50% in coordination of care (as documented) at patient's floor/unit and/or counseling patient: Coding Level of Care Code 50979 Subseq Hosp Care Lvl 3 Diagnoses Atrial fibrillation with RVR I48.91 Tremor of both hands R25.1 Iron deficiency anemia D50.9 Dyspnea on exertion R06.09 Anemia D64.9 Generalized weakness R53.1 Rash R21 Hypertension I10 Dyslipidemia E78.5 Hypothyroidism E03.9 Barretts esophagus K22.70 Constipation K59.00
[2022-04-25] MEDS: PANTOprazole 40 MG TAB PO SCH (08:22)
[2022-04-25] MEDS: CYANOCOBALAMIN (B-12) 500 MCG TABLET PO SCH (08:23)
[2022-04-25] MEDS: LEVOTHYROXINE SODIUM 100 MCG TABLET PO SCH (08:23)
[2022-04-25 08:33] LABS: Basophils # (auto) 0.08 K/uL (0-0.2); Eosinophils # (auto) 0.39 K/uL (0-0.50); Eosinophils % (auto) 4.9 %; Hematocrit (blood only) 31.4 % (40.1-51.0); Hemoglobin 9.3 g/dl (14.0-18.0); Immature Granulocytes # (auto) 0.08 K/uL (0.00-0.02); Lymphocytes # (auto) 1.21 K/uL (1.2-3.4); Lymphocytes % (auto) 15.1 %; Mean Corpuscular Hemoglobin 22.4 pg (25.0-34.0); Mean Corpuscular Hgb Conc 29.6 g/dL (32.0-36.0); Mean Corpuscular Volume 75.7 fL (80.0-100.0); Mean Platelet Volume 8.3 fL (9.4-12.4); Monocytes # (auto) 0.92 K/uL (0.24-0.82); Monocytes % (auto) 11.5 %; Neutrophils # (auto) 5.35 K/uL (1.4-6.5); Neutrophils % (auto) 66.5 %; Platelet Count 322 K/uL (130-400); RDW Coefficient of Variation 19.9 % (11.5-14.5); Red Blood Count 4.15 M/uL (4.63-6.08); White Blood Count 8.03 K/ul (4.8-10.8)
[2022-04-25 08:56] LABS: Albumin Globulin Ratio 1.2 (0.9-2); Albumin Level 3.8 gm/dl (3.4-5.0); BUN Creatinine Ratio 23.4 (10-20); Calcium 8.8 mg/dl (8.5-10.1); Creatinine Clr Calc Pharmacy 70.5 ml/min; Est GFR (African American) 88.4 ml/min; Est GFR (Non-African American) 76.3 ml/min; Globulin 3.2 gm/dl (2.5-4.0); Magnesium 2.2 mg/dl (1.7-2.4)
[2022-04-25] MEDS ORDERED: IRON SUCROSE 300 MG in SODIUM CHLORIDE 0.9% 250 ML IV ONE ×2 (09:00→16:00)
[2022-04-25] MEDS ORDERED: METOPROLOL TARTRATE 25 MG TAB PO STA (10:09)
[2022-04-25] MEDS ORDERED: SODIUM CHLORIDE 0.9% 1000ML 250 ML IV ONE ×2 (10:53→13:04)
[2022-04-25] MEDS ORDERED: AMIODARONE 150MG / 100ML D5W IV ONE (11:15)
[2022-04-25] MEDS ORDERED: AMIODARONE 360MG / 200ML D5W IV ONE (11:15)
[2022-04-25] MEDS ORDERED: AMIODARONE / D5W 360 MG/200 ML BAG IV ONE ×2 (11:30→16:46)
[2022-04-25] MEDS ORDERED: Heparin IV Adult Wt-Based Low-Dose *NO* Bolus Protocol IV SCH (12:02)
[2022-04-25] MEDS: DOCUSATE SODIUM/SENNA 50/8.6MG TAB PO SCH (12:10)
--- NOTE | 2022-04-25 12:24 | Cardiology Consultation ---
Date of Consultation April 25, 2022 Assessment & Plan (1) Atrial fibrillation with RVR: (2) Chest discomfort: (3) Dyspnea on exertion: (4) Hypertension: (5) Tremor of both hands: Plan ASSESSMENT/PLAN: 1. AFib with RVR: We discussed the diagnosis. Recommended amiodarone given hypotension with such rapid heart rates. Fortunately, he converted with amiodarone. Recommend anticoagulation therapy if no contraindication. Must weigh risk of bleeding in the setting of esophageal varices and gastric erosion in the past. Can transition to oral amiodarone since patient did not tolerate atrial fibrillation well, in an attempt to suppress future AFib. 2. Chest pain: Has described atypical chest pain as an outpatient which improved with belching. Chest pain today improved with improvement of his heart rate. It is not clear if these chest pains are exactly the same. Given his GI findings in the past, would consider possibility that GI etiology is contributing. Discussed noninvasive ischemia evaluation given dyspnea with exertion as well. Would not pursue that currently given his AFib issues today. Can consider in the future. 3. Dyspnea with exertion: He does not appear to be hypervolemic. Recommend noninvasive ischemic evaluation. Would consider myocardial perfusion study. Can be done later this hospital stay or potentially as an outpatient. 4. Hypertension: Blood pressure well controlled currently. Was hypotensive this afternoon in the setting of AFib with RVR. 5. Tremor: As per Neurology and primary service. 6. Esophageal varices: Has not had any noted bleeding but has anemia. Unclear if he has had further evaluation in regards to hepatic disease with noted varices. Defer to GI. If bleeding risk is felt to be high with his varices and previously noted gastric erosion, anticoagulation therapy may offer more risk than benefit. Currently on anticoagulation therapy while hospitalized in the setting of AFib. Long-term anticoagulation therapy to be determined. 7. Disposition: Patient care communicated with primary hospitalist service, Alina Ann. Cardiology will continue to follow. Patient's was contacted via telephone. She was updated regarding the atrial fibrillation. We discussed treatment and urgency of the treatment. We discussed potential adverse reaction to amiodarone. She was concerned about the tremors as this was the reason for his presentation initially. She was asked to discuss this further with primary hospitalist team and/or Neurology. Hospitalist service notified of her concern. Thank you for allowing me to participate in the care of your patient. Please call for any other questions or concerns. Sincerely, Deniz Jamison M.D. History of Present Illness Reason for Consultation: "Dyspnea on exertion, decreased exercise tolerance" then today, acute atrial afib with hypotension Requesting Physician: Alina Ann Attending Physician: Laura Meeks MD History of Present Illness Mr. Rich is an 82-year-old gentleman with a history significant for dyslip idemia, hypertension, hypothyroidism, Jose's esophagus, esophageal varices, GERD, and anemia. He was hospitalized on 04/22/2022 due to significant tremors involving his hands since 04/20/2022. He was in the emergency department on 04/21/2022 with chest discomfort. He has been experiencing intermittent chest discomfort. He described the chest discomfort as a fullness in his chest which often improves with belching. The chest discomfort is not exertional. He also would walk frequently with his for 1 mi up until December of 2021 when he developed dyspnea with exertion. He can now walk only a few blocks due to the dyspnea. In general, he denies shortness of breath at rest, orthopnea, palpitations, edema, syncope, near-syncope, or bleeding such as melena, hematochezia, or hematuria. Initially, consultation was attempted on 04/24/2022 but he did not wish to undergo consultation at that time. I was then notified this morning that he developed AFib with RVR. He was on the third for, and not on telemetry. He was sitting in a chair and developed acute lightheadedness with diaphoresis. He appeared more short of breath and had some chest discomfort. He was noted to be in AFib with RVR. He developed hypotension and was placed in the Trendelenburg position. Nursing staff states that he has appeared short of breath at times with conversation which is not new and has been occurring throughout the hospital stay. I recommended amiodarone given hypotension in the setting of AFib with RVR. I presented to the bedside. His systolic blood pressure was in the 90s at that ti me but he remained tachycardic. PCU nursing staff presented to the bedside and placed him on monitor. Amiodarone drip was initiated. While at the bedside, he then appeared to be quite regular on bedside monitor with heart rates in the 130s. He then abruptly dropped his heart rate into the 90s and the rhythm was atrial fibrillation. At that moment, his chest discomfort significantly improved. His blood pressure remained systolic 90s. Shortly after amiodarone bolus was complete, he converted to sinus rhythm. He described the chest discomfort while sitting in the chair today as a substern al chest tightness, which once again seem to correlate with rapid heart rate. Review of systems: As above. Review of systems otherwise negative/unremarkable. Family history: Mother had LA and CABG. Brother had LA and at the age of 45. Brother had CABG. Brother had CABG, pacemaker, and atrial fibrillation. Social history: He quit smoking in 1998. Rare alcohol. Lives at home with his . Has 6 children, 4 of which live in [place], 1 in [place], and a daughter in [place] who is a nurse. He had no family or friend at the bedside at the time of today's consultation. Allergies Allergy/AdvReac Type Severity Reaction Status Date / Time famotidine Allergy Intermediate Hives Verified 04/22/22 19:09 nitrofurantoin Allergy Intermediate Hives Verified 04/22/22 19:09 Penicillins Allergy Intermediate Hives Verified 04/22/22 19:09 Sulfa (Sulfonamide Allergy Intermediate Hives Verified 04/22/22 19:09 Antibiotics) adhesive AdvReac Intermediate skin tear Verified 04/22/22 19:09 Home Medications Medication Instructions Recorded Confirmed Type [id number] tablet 1 tab PO QPM 07/01/19 04/22/22 History aspirin 81 mg chewable tablet 81 mg PO QAM 07/04/19 04/22/22 History (Katy Chewable Low Dose Aspirin) metronidazole 0.75 % topical gel 1 applic topical HS rash 01/01/20 04/22/22 History triamcinolone acetonide 0.5 % 1 applic topical UD PRN Skin 01/01/20 04/22/22 History topical cream Irritation valsartan 80 mg tablet 80 mg PO QAM 11/21/21 04/22/22 History esomeprazole magnesium 40 mg 40 mg PO QAM #90 caps 02/02/22 04/22/22 Rx capsule,delayed release levothyroxine 100 mcg tablet 100 mcg PO QAM #90 tabs 02/02/22 04/22/22 Rx lovastatin 20 mg tablet 20 mg PO QPM #90 tabs 02/02/22 04/22/22 Rx polyethylene glycol 3350 17 17 g PO HS 04/22/22 04/22/22 History gram/dose oral powder (Miralax) Patient History Medical History Anemia Jose's esophagus Esophageal varices GERD (gastroesophageal reflux disease) HLD (hyperlipidemia) [place] (hard of hearing) HTN (hypertension) Hypothyroidism Osteoarthritis Postoperative voiding difficulty Sensorineural hearing loss (SNHL) of both ears Tinnitus Surgical History H/O colonoscopy (08/2018) Hyperplastic polyps, recheck 10 years, [facility] H/O hemorrhoidectomy 1998 H/O rotator cuff surgery R shoulder, April 2021 History of basal cell carcinoma (BCC) excision History of cataract surgery Right: August 2013 Left: September 2013 History of esophagogastroduodenoscopy (EGD) (08/2018) Focal area of Jose's esophagus 36 cm, recheck 3 years, [facility] Family History Brother , age 46 Myocardial infarction Hx of CABG Hypertension Mother Hx of CABG Coronary heart disease Father Lung cancer "behind lungs" Other No family history of adverse response to anesthesia No family history of bleeding disorder Denies family history of Ovarian cancer Prostate cancer Breast cancer Colorectal cancer Social History Smoking Status: Never smoker Tobacco Type: Cigarettes Age Started Using Tobacco: 14; Age Quit Using Tobacco: 69; packs per day: 0.5; Cigarettes Per Day: 10; Second Hand Exposure: No; Hx Alcohol Use: Yes Alcohol type: hard liquor Hx Substance Use: No Preferred Language: Sierra Leonean Communication Ability: Effective Visual Impairment: No Limitations Hearing Ability: Normal Claim Specialist Required: No Beliefs That Will Affect Care: None marital status: Current Living Situation: Spouse current occupational status: retired current occupation: used to work with [employer] Feels Safe at Home: Yes Childhood Exposure to Second-Hand Smoke: No Dental Care, Regularly: Yes Physical Activity Frequency: Daily Physical Activity Frequency Comment: walk Seatbelt Use: always Sunscreen Use: No Assistive Devices: Cane Physical Exam Physical Exam: Gen.: No acute distress. Alert. HEENT: Anicteric sclera. Neck: Could not assess for JVD due to patient positioning (Trendelenburg position). No bruits. Normal carotid upstrokes bilaterally. Cardiac: No ventricular heave. Irregularly irregular and tachycardic. Normal S1-S2. No murmurs, rubs, or gallops. Pulmonary: Clear to auscultation bilaterally without wheezes, rales, or rhonchi. Abdomen: Soft, nontender, nondistended, with normoactive bowel sounds. No bruits noted. Extremities: 2+ radial pulses bilaterally. 2+ posterior tibialis pulses bilaterally. No edema or cyanosis. Psychiatric: Affect appears appropriate. Results & Data ([facility]) Vital Signs (Past 12 Hours) Vital Signs Temp Pulse Pulse Resp BP Pulse Ox O2 Del Method 04/25/22 12:00 76 93/56 L 04/25/22 11:41 102 H 104/66 04/25/22 11:30 97 H 93/63 L 04/25/22 11:20 138 H 99/63 L 04/25/22 10:43 106 H 100/59 L 99 04/25/22 10:35 76/39 L 04/25/22 10:15 141 H 121/66 99 Room Air 04/25/22 05:41 36.9 C 89 20 137/71 98 Room Air Intake & Output 04/23/22 04/24/22 04/25/22 04/26/22 06:59 06:59 06:59 06:59 Intake Total 650 / 650 960 / 960 250 / 250 Output Total 450 / 450 725 / 725 250 / 250 Balance 650 / 650 -450 / -450 235 / 235 0 / 0 Weight 212 lb 1.355 oz 212 lb 1.355 oz Laboratory Results Laboratory Results - last 24 hr 04/25/22 04/25/22 04/25/22 08:09 08:09 10:51 WBC 8.03 RBC 4.15 L Hgb 9.3 L Hct 31.4 L MCV 75.7 L MCH 22.4 L MCHC 29.6 L RDW Std Deviation 52.0 H RDW Coeff of Razia 19.9 H Plt Count 322 MPV 8.3 L Immature Gran % (Auto) 1.0 Neut % (Auto) 66.5 Lymph % (Auto) 15.1 Elk % (Auto) 11.5 Eos % (Auto) 4.9 Baso % (Auto) 1.0 Neut # (Auto) 5.35 Lymph # (Auto) 1.21 Elk # (Auto) 0.92 H Eos # (Auto) 0.39 Baso # (Auto) 0.08 Immature Gran # (Auto) 0.08 H Sodium 137 Potassium 4.0 Chloride 106 Carbon Dioxide 23 Anion Gap 8 BUN 22 Creatinine 0.94 Est Cr Clr Drug Dosing 70.5 Est GFR ( Amer) 88.4 Est GFR (Non-Af Amer) 76.3 BUN/Creatinine Ratio 23.4 H Glucose 86 Calcium 8.8 Magnesium 2.2 Total Bilirubin 1.0 AST 20 ALT 14 Alkaline Phosphatase 81 Total Creatine Kinase 274 H Total Protein 7.0 Albumin 3.8 Globulin 3.2 Albumin/Globulin Ratio 1.2 RPR Pending Diagnostic Findings ECGs personally reviewed: ECG 04/22/2022 at 6:43 p.m.: Sinus rhythm 84 beats per minute. ECG 04/25/2022 at 9:59 a.m.: AFib with RVR and PVC versus aberrantly conducted complex at 145 beats per minute. ECG 04/25/2022 at 11:50 a.m.: Sinus rhythm 78 beats per minute. Nonspecific ST/T-wave abnormality. Echo 04/24/2022: Normal LV size, wall motion, systolic function. EF 60-65%. Trace AI. Normal RVSP. Brain MRI 04/23/2022: No acute intracranial abnormality per Radiology. No abnormal enhancement per Radiology. Chest x-ray 04/22/2022: No acute process per Radiology. Medications Administered Current Inpatient Medications Aspirin (Aspirin 81 Mg Ectab) [address] [facility] Stop: 05/26/22 08:59 Cyanocobalamin (Cyanocobalamin (B-12) 500 Mcg Tablet) [address] [facility] Stop: 05/24/22 08:59 Last Admin: 04/25/22 08:23 Dose: 500 mcg Heparin Sodium/Dextrose (Heparin Sodium/Dextrose) 25,000 units in 500 mls @ 19 mls/hr IV .Q24H [facility]; Protocol Stop: 05/25/22 12:29 Last Admin: 04/25/22 13:42 Dose: 950 units/hr, 19 mls/hr Sodium Chloride (Nss) 500 mls @ 80 mls/hr IV .Q6H15M [facility] Stop: 05/25/22 13:03 Last Admin: 04/25/22 13:43 Dose: 80 mls/hr Amiodarone HCl/Dextrose (Nexterone / D5w) 360 mg in 200 mls @ 16.667 mls/hr IV .Q12H [facility] Stop: 05/25/22 17:29 Last Admin: 04/25/22 17:04 Dose: 0.5 mg/min, 16.7 mls/hr Levothyroxine Sodium (Levothyroxine Sodium 100 Mcg Tablet) 100 mcg PO DAILYBB [facility] Stop: 05/23/22 06:29 Last Admin: 04/25/22 08:23 Dose: 100 mcg Lovastatin (Lovastatin 20 Mg Tab) 20 mg PO DAILY@1800 [facility] Stop: 05/24/22 17:59 Last Admin: 04/25/22 17:06 Dose: 20 mg Metoprolol Tartrate (Metoprolol Tartrate 25 Mg Tab) 12.5 mg PO QAM [facility] Stop: 05/25/22 13:29 Last Admin: 04/25/22 14:21 Dose: 12.5 mg Metronidazole (Metronidazole 0.75% Topical Gel 45 Gm Tube) 1 appln [facility] Stop: 05/05/22 20:59 Nitroglycerin (Nitroglycerin Sl 0.4 Mg/Tab Tab) 0.4 mg SL PRN PRN PRN Reason: chest pain Stop: 05/25/22 13:03 Ondansetron HCl (Ondansetron Inj 2 Mg/Ml 2 Ml Vial) 4 mg IV Q6H PRN PRN Reason: Nausea Stop: 05/22/22 22:54 Pantoprazole Sodium (Pantoprazole 40 Mg Tab) 40 mg PO DAILY [facility] Stop: 05/24/22 08:59 Last Admin: 04/25/22 08:22 Dose: 40 mg Polyethylene Glycol (Polyethylene (Miralax) 17 Gm Pack) 17 gm PO [facility] Stop: 05/23/22 20:59 Last Admin: 04/24/22 22:09 Dose: 17 gm Ropinirole HCl (Ropinirole Hcl 0.25 Mg Tablet) 0.25 mg PO [facility] Stop: 05/24/22 20:59 Last Admin: 04/24/22 22:09 Dose: 0.25 mg Senna/Docusate Sodium (Docusate Sodium/Senna 50/8.6mg Tab) [facility] Stop: 05/25/22 08:59 Last Admin: 04/25/22 12:10 Dose: Not Given Triamcinolone Acetonide (Triamcinolone Acet 0.5% Cr 15 Gm Tube) 1 appln TOP DAILY PRN PRN Reason: Skin Irritation Stop: 05/25/22 13:03 Valsartan (Valsartan 80 Mg Tab) [facility]: 05/23/22 08:59 Last Admin: 04/24/22 06:41 Dose: 80 mg PG Care Time/CCT Total # of Minutes Spent Total Time Spent with Patient: Total time spent is greater than 50% in coordination of care (as documented) at patient's floor/unit and/or counseling patient: Coding Level of Care Code 60602 Initial Inpt Care Lvl 3 Diagnoses Atrial fibrillation with RVR I48.91 Chest discomfort R07.89 Dyspnea on exertion R06.09 Hypertension I10 Tremor of both hands R25.1
[2022-04-25] MEDS ORDERED: AMIODARONE / D5W 150 MG/100 ML BAG IV STA (13:04)
[2022-04-25] MEDS ORDERED: 0.2 MICRON FILTER SET 1 EACH IV ONE ×2 (13:04→16:46)
[2022-04-25] MEDS ORDERED: ASPIRIN 81 MG CHEW PO ONE (13:04)
[2022-04-25] MEDS ORDERED: TRIAMCINOLONE ACET 0.5% CR 15 GM TUBE TOP PRN (13:04)
[2022-04-25] MEDS ORDERED: NITROGLYCERIN SL 0.4 MG/TAB TAB SL PRN (13:04)
[2022-04-25] MEDS ORDERED: METOPROLOL TARTRATE 1 MG/ML VIAL IV PRN (13:04)
[2022-04-25] MEDS: HEPARIN SODIUM/DEXTROSE 25,000 UNITS/500 ML BAG IV SCH (13:42)
[2022-04-25] MEDS: SODIUM CHLORIDE 0.9% 500 ML IV SCH ×2 (13:43→20:27)
[2022-04-25] MEDS: METOPROLOL TARTRATE 25 MG TAB PO SCH (14:21)
[2022-04-25] MEDS ORDERED: Nursing to Pharmacy Communication SCH (17:00)
[2022-04-25] MEDS: AMIODARONE / D5W 360 MG/200 ML BAG IV SCH (17:04)
[2022-04-25] MEDS: LOVASTATIN 20 MG TAB PO SCH (17:06)
[2022-04-25 20:18] LABS: Partial Thromboplastin Ratio 1.5; Partial Thromboplastin Time 40.3 Seconds (21.0-31.0)
[2022-04-25] MEDS: POLYETHYLENE (MIRALAX) 17 GM PACK PO SCH (20:29)
[2022-04-25] MEDS: rOPINIRole HCL 0.25 MG TABLET PO SCH (20:29)
[2022-04-25] MEDS: metroNIDAZOLE 0.75% TOPICAL GEL 45 GM TUBE TOP SCH (20:29)
[2022-04-26] MEDS: SODIUM CHLORIDE 0.9% 500 ML IV SCH ×2 (02:06→02:51)
[2022-04-26] MEDS: AMIODARONE / D5W 360 MG/200 ML BAG IV SCH (02:07)
[2022-04-26 03:47] LABS: Hematocrit (blood only) 29.3 % (40.1-51.0); Hemoglobin 8.6 g/dl (14.0-18.0); Mean Corpuscular Hemoglobin 22.1 pg (25.0-34.0); Mean Corpuscular Hgb Conc 29.4 g/dL (32.0-36.0); Mean Corpuscular Volume 75.3 fL (80.0-100.0); Mean Platelet Volume 8.4 fL (9.4-12.4); Platelet Count 318 K/uL (130-400); RDW Coefficient of Variation 19.8 % (11.5-14.5); RDW Standard Deviation 53.1 fL (36.4-46.3); Red Blood Count 3.89 M/uL (4.63-6.08)
[2022-04-26 04:05] LABS: Partial Thromboplastin Ratio 1.5; Partial Thromboplastin Time 42.1 Seconds (21.0-31.0)
[2022-04-26 04:11] LABS: BUN Creatinine Ratio 19.4 (10-20); Calcium 8.4 mg/dl (8.5-10.1); Creatinine Clr Calc Pharmacy 67.6 ml/min; Est GFR (African American) 84.1 ml/min; Est GFR (Non-African American) 72.5 ml/min; Magnesium 2.1 mg/dl (1.7-2.4); Potassium 3.6 mmol/L (3.5-5.1)
[2022-04-26] MEDS: LEVOTHYROXINE SODIUM 100 MCG TABLET PO SCH (06:06)
--- NOTE | 2022-04-26 06:17 | Electrocardiogram Report ---
Test Reason : Blood Pressure : / mmHG Vent. Rate : 145 BPM Atrial Rate : 153 BPM P-R Int : 000 ms QRS Dur : 092 ms QT Int : 280 ms P-R-T Axes : 000 095 169 degrees QTc Int : 434 ms Atrial fibrillation with rapid ventricular response with premature ventricular or aberrantly conducte d complexes Rightward axis Nonspecific ST and T wave abnormality Abnormal ECG When compared with ECG of 22-APR-2022 18:43, Atrial fibrillation has replaced Sinus rhythm Vent. rate has increased BY 61 BPM Questionable change in QRS axis Confirmed by Holger Jamison ([id number] on 04/26/2022 6:16:57 AM Referred By: REFERRED SELF Confirmed By:Holger Jamison
--- NOTE | 2022-04-26 06:27 | Electrocardiogram Report ---
Test Reason : Blood Pressure : / mmHG Vent. Rate : 078 BPM Atrial Rate : 078 BPM P-R Int : 206 ms QRS Dur : 094 ms QT Int : 376 ms P-R-T Axes : 034 047 100 degrees QTc Int : 428 ms Normal sinus rhythm Nonspecific ST and T wave abnormality Abnormal ECG When compared with ECG of 25-APR-2022 09:59, Sinus rhythm has replaced Atrial fibrillation Vent. rate has decreased BY 67 BPM Nonspecific T wave abnormality now evident in Anterior leads Confirmed by Holger Jamison ([id number] on 04/26/2022 6:27:23 AM Referred By: REFERRED SELF Confirmed By:Holger Jamison
--- NOTE | 2022-04-26 07:19 | Hospitalist Progress Note ---
Date of Service April 26, 2022 Assessment & Plan (1) Atrial fibrillation with RVR: Plan: Presented with new onset intention tremors over the past week, ambulatory dysfunction and generalized weakness. Was also seen in ER 04/21 for chest tightne ss and SHORTNESS OF BREATH * EKG on admit without arrhythmia, patient denied symptoms of palpitations but did endorse feeling lightheaded at times at home and progressive dyspnea on exertion when he used to walk 1 mile daily up until January when it was reduced to 2 blocks daily. @ 9L45am on 04/25 patient became diaphoretic, complaints of chest tightness and lightheadedness. Trop negative. EKG performed which showed Afib w/ RVR with rates to 141bpm Moved to telemetry Cardiology on consult, amio bolus and continued gtt with conversion to NSR afternoon 04/25 Remains on amiodarone Metoprolol added 12.5mg PO daily and will continue, BP stable Cont Heparin gtt for now, but given prior EGD w/ grade 3 varices risk may outweigh benefit. Asked GI to weigh in, consider propranolol * However, discussion with Dr Jason and given upper esophageal varcieis with normal CT liver without evidence for cirrhosis would rec a CT chest for eval backflow/obstruction causing issues ECHO 04/24 w/ normal LV size/function, EF 60-65% with no wma TSH wnl but is taking with PPI valsartan and ASA 81mg at home . Did check T4/t3 for hyperthyroidism cause for tremors as below (rec'd d/c [id number] given no prior hx CVA/TIA reported and w/ varicies) Planning for nuclear stress tomorrow for ischemic work-up. Instructed RN to place sign NO CAFFEINE. keep K>4, mag >2 - ordered dose PO Kcl Continue to monitor on telemetry for now, Weighing AC given varices and discussion with patient and . Their main concern is patient's tremors -- see below (2) Tremor of both hands: Plan: 82 year old male w/ PMHx of subacute iron-deficiency anemia, HTN, HLD, hypothyroidism, and Jose's who presents w/ new onset intention tremors, ambulatory dysfunction and generalized weakness Neurology consulted Head CT negative MRI brain and cervical spine given nystagmus reported -- NEGATIVE Lyme testing/Anaplasmosis smear negative Added babesiosis as well Ammonia wnl (denies etoh, last drink February, no cirrhosis of liver on imaging) Tx MARY as below --?ferritin low at 4, RLS type picture? requip not effective per patient, trial pamiprexole for today, titrate Continue Venofer replacement Of note, on amio could make worse but tremor present prior to and will continue given maintaining NSR Do not suspect tremors from afib (possible thought in days prior as patient denied and palpitations but worse when in afib but still present back in NSR, suspect not cause newer rash reported during last month, seen by dermatology. ck aslo elevated (getting IVF and holding statin) but upon further asking about timeline for new medications and valsartan previously reported by patient as starting much earlier in the year from switch from lisinopril for cough x3-4 years reported. Review of meds as this was NEW MED STARTED SECOND WEEK OF FEBRUARY --> case reports small % people with tremors listed as reaction and if ?rash related to medication as well would discontinue this permanently and is now on BB Repeat CK still mild elevation despite IVF 04/25, will hold statin.Need to inquire if this is new med RPR checked given aortic regurg on echo, trace -- NEGATIVE Will need outpatient Neuro f/u in 2-3 weeks PT/OT consulted will need rehab but working on tx for tremor first (3) Iron deficiency anemia: Plan: Worsening over the past year (although appears to have been going on at least over past year or two with low hgb values), workup started as outpatient, including fall 2020 egd (grade 3 esophageal varices and gastric erosion) 10/2021 colonoscopy w/ polyps and non-bleeding hemorrhoids, 02/2022 negative capsule endoscopy. Microcytic. Severe iron deficiency -- not tolerating PO iron in past due to constipation Outpt work up included c-scope/egd, pill endoscopy B12 borderline, 500mcg daily ordered and continue at d/c Folate wnl LDH not elevated at 124, peripheral smear without significant finding Iron w/ severe --> Venofer IV 200mg + 300mg thus far and continue replacement Hgb stable 8.6 but some dilutional as given IVF for hypotension with rapid afib 04/25 Hemoccult stool as above - with hx of Jose's and esophageal varices, esophageal malignancy is on differential CT chest ordered for further eval given upper esophageal varicies and NO EVIDENCE FOR CIRRHOSIS OR PORTAL HTN ON CT LIVER OCT 2021 Will need outpt Gi f/u PSH as well (4) Barretts esophagus: Plan: Chronic, continue PPI. EGD last year w/ grade 3 esophageal varices. Increased PPI to BID dosing and recommen increased dose at discharge Per patient had increased to 40mg of esomeprazole (generic outpatient) without improvement in symptoms and he backed down to 20mg daily. Discussed with barretts should be on max PPI therapy and increased protonix to BID (5) Dyspnea on exertion: Plan: - x3 months, reportedly was able to walk a mile daily with his up until earlier this year, currently only able to go about 2 blocks. distant tobacco use With reported chest tightness last week, no further CP currently but endorses SOB on exertion EKG w/ CP Venofer IV as above Planning for nuc stress with cards tomorrow 95% on RA (6) Generalized weakness: Plan: Multifactorial Iron deficiency anemia, possible viral mediated rash vs drug reaction vs other Venofer IV ordered, Echo/cards PT/OT consulted (7) Rash: Plan: reportedly starting on , however dermatology notes state started around April 08 after mowing outside and possible bite reaction/chigger bites. ? if drug induced given patient started valsartan and now with onslaught of symptoms which could be consistent with adverse reactions and this is only new med (outside of increased nexium outpatient) Consider f/u Dr Bellamy after discharge as continued but appear healing in some upper areas but newer lesion to posterior R knee since improving compared to day prior (8) Hypertension: Plan: Chronic On valsartan (new as above, switched from lisinopril for dry cough but office with lower BPs) Placed on hold and would discontinue Now on 12.5mg metoprolol daily BP 115/65 denies lightheadedness/dizziness (9) Dyslipidemia: Plan: Chronic, continue home lovastatin but will place on hold temporarily given slight elevation in CK but better than day before (10) Hypothyroidism: Plan: Chronic, continue home levothyroxine. TSH wnl, F[facility] contributing to tremors Educated on correct way to take on empty stomach however patient insistent on taking it with AM meds (since d/c ASA and valsartan anyway) (11) Constipation: Plan: Chronic, continue home miralax qhs, added senna/docusate Heparin gtt for now, considering no AC at d/c given varicies Plan continued monitoring on telemetry trial pramipexole for tremors -- will need neuro f/u outpatient 2-3 weeks venofer IV continue amiodarone --> switching to PO this evening STOP valsartan permanently Obtain CT chest for eval of upper esophageal varices Admission and Anticipated Discharge Date Admission Date: April 22, 2022 Subjective Evaluated this morning. No further lightheaded/dizziness reported or chest pressure. Tremor is top priority for him and and worried about a possible stroke. Increased tremor with activity, no improvement with Requip and discussed medication specifically for tremor and will see if effective. Discussed MRI brain negative and no stroke/eval by Neurology. Discussed continued replacement of iron stores to see if improvement but did have further discussion regarding new medications and timelines as valsartan reported earlier in the year but of note after looking at rx's sent, confirmed with that new rx was actually started around February 24. Discussed had gotten this medication 04/24 and 04/25 and small percent of patients with issue ~1% reported. He did also develop a worsening rash to his thighs after starting this and was evaluated by dermatology as an outpatient. Discussed continuing to hold this for now and would not recommend resuming. Also discussed will have GI weigh in on AC given his hx varices but no cirrhosis as AC risk may outweigh benefit if bleeding to occur. Consult in place and did reach out to [facility] group as well via message this morning. No fever/chills. Discussed with Dr Jason and will order CT chest for eval given upper varices and no cirrhosis by prior CT liver earlier this year. Review of Systems Review of Systems: All systems reviewed & are unremarkable except as noted in HPI & below Physical Exam Physical Exam: General: WD male laying in bed, at bedside, anxious about update regarding plan for his tremors, NAD HEENT: head normocephalic, atraumatic, mmm, trachea midline without deviation, ?trace JVD on the left Chest: chest pain not reproducible on palpation Resp: CTAB, no w/c, on room air CV: regular rate/rhythm (rate 66bpm), faint systolic murmur, no edema/calf tenderness GI: +BS, soft, nontender : no Patricio MSK/Neuro: moves all extremities, increased tremor to all four extremities with movement, no focal deficit on exam Skin: warm, dry, scattered lesions to upper thighs (improved from day prior) Results & Data Results & Data ([facility]) Vital Signs (Past 12 Hours) Vital Signs Temp Pulse Pulse Resp BP BP Pulse Ox 04/26/22 03:00 36.7 C 73 18 136/72 96 04/25/22 23:00 80 04/25/22 23:01 36.7 C 74 20 119/62 96 04/25/22 19:20 O2 Del Method 04/26/22 03:00 Room Air 04/25/22 23:00 04/25/22 23:01 Room Air 04/25/22 19:20 Room Air Laboratory Results 04/26/22 04/26/22 04/26/22 Range/Units 10:59 03:13 03:13 WBC (4.8-10.8) K/ul RBC (4.63-6.08) M/uL Hgb (14.0-18.0) g/dl Hct (40.1-51.0) % MCV (80.0-100.0) fL MCH (25.0-34.0) pg MCHC (32.0-36.0) g/dL RDW Std Deviation (36.4-46.3) fL RDW Coeff of Razia (11.5-14.5) % Plt Count (130-400) K/uL MPV (9.4-12.4) fL Immature Gran % (Auto) % Neut % (Auto) % Lymph % (Auto) % [place] % (Auto) % Eos % (Auto) % Baso % (Auto) % Neut # (Auto) (1.4-6.5) K/uL Lymph # (Auto) (1.2-3.4) K/uL [place] # (Auto) (0.24-0.82) K/uL Eos # (Auto) (0-0.50) K/uL Baso # (Auto) (0-0.2) K/uL Immature Gran # (Auto) (0.00-0.02) K/uL APTT 75.2 H* 42.1 H (21.0-31.0) Seconds PTT Ratio 2.7 1.5 Sodium (136-145) mmol/L Potassium (3.5-5.1) mmol/L Chloride (98-107) mmol/L Carbon Dioxide (21-32) mmol/L Anion Gap (3-11) BUN (6-23) mg/dl Creatinine (0.6-1.4) mg/dl Est Cr Clr Drug Dosing ml/min Est GFR ( Amer) ml/min Est GFR (Non-Af Amer) ml/min BUN/Creatinine Ratio (10-20) Glucose (70-99(Fasting)) mg/dl Calcium (8.5-10.1) mg/dl Magnesium (1.7-2.4) mg/dl Total Creatine Kinase (30-223) U/L Troponin I High Sens (0-20) pg/ml Aldolase Pending Free T4 (0.61-1.60) ng/dl Free T3 (2.3-4.2) pg/ml RPR (Nonreactive) 04/26/22 04/26/22 04/25/22 Range/Units 03:13 03:13 19:42 WBC 11.00 H (4.8-10.8) K/ul RBC 3.89 L (4.63-6.08) M/uL Hgb 8.6 L (14.0-18.0) g/dl Hct 29.3 L (40.1-51.0) % MCV 75.3 L (80.0-100.0) fL MCH 22.1 L (25.0-34.0) pg MCHC 29.4 L (32.0-36.0) g/dL RDW Std Deviation 53.1 H (36.4-46.3) fL RDW Coeff of Razia 19.8 H (11.5-14.5) % Plt Count 318 (130-400) K/uL MPV 8.4 L (9.4-12.4) fL Immature Gran % (Auto) 0.6 % Neut % (Auto) 66.4 % Lymph % (Auto) 19.1 % [place] % (Auto) 9.2 % Eos % (Auto) 3.9 % Baso % (Auto) 0.8 % Neut # (Auto) 7.07 H (1.4-6.5) K/uL Lymph # (Auto) 2.04 (1.2-3.4) K/uL [place] # (Auto) 0.98 H (0.24-0.82) K/uL Eos # (Auto) 0.42 (0-0.50) K/uL Baso # (Auto) 0.09 (0-0.2) K/uL Immature Gran # (Auto) 0.06 H (0.00-0.02) K/uL APTT 40.3 H (21.0-31.0) Seconds PTT Ratio 1.5 Sodium 137 (136-145) mmol/L Potassium 3.6 (3.5-5.1) mmol/L Chloride 108 H (98-107) mmol/L Carbon Dioxide 21 (21-32) mmol/L Anion Gap 8 (3-11) BUN 19 (6-23) mg/dl Creatinine 0.98 (0.6-1.4) mg/dl Est Cr Clr Drug Dosing 67.6 ml/min Est GFR ( Amer) 84.1 ml/min Est GFR (Non-Af Amer) 72.5 ml/min BUN/Creatinine Ratio 19.4 (10-20) Glucose 90 (70-99(Fasting)) mg/dl Calcium 8.4 L (8.5-10.1) mg/dl Magnesium 2.1 (1.7-2.4) mg/dl Total Creatine Kinase 240 H (30-223) U/L Troponin I High Sens (0-20) pg/ml Aldolase Free T4 (0.61-1.60) ng/dl Free T3 (2.3-4.2) pg/ml RPR (Nonreactive) 04/25/22 04/25/22 04/25/22 Range/Units 10:51 10:51 10:51 WBC (4.8-10.8) K/ul RBC (4.63-6.08) M/uL Hgb (14.0-18.0) g/dl Hct (40.1-51.0) % MCV (80.0-100.0) fL MCH (25.0-34.0) pg MCHC (32.0-36.0) g/dL RDW Std Deviation (36.4-46.3) fL RDW Coeff of Razia (11.5-14.5) % Plt Count (130-400) K/uL MPV (9.4-12.4) fL Immature Gran % (Auto) % Neut % (Auto) % Lymph % (Auto) % [place] % (Auto) % Eos % (Auto) % Baso % (Auto) % Neut # (Auto) (1.4-6.5) K/uL Lymph # (Auto) (1.2-3.4) K/uL [place] # (Auto) (0.24-0.82) K/uL Eos # (Auto) (0-0.50) K/uL Baso # (Auto) (0-0.2) K/uL Immature Gran # (Auto) (0.00-0.02) K/uL APTT (21.0-31.0) Seconds PTT Ratio Sodium (136-145) mmol/L Potassium (3.5-5.1) mmol/L Chloride (98-107) mmol/L Carbon Dioxide (21-32) mmol/L Anion Gap (3-11) BUN (6-23) mg/dl Creatinine (0.6-1.4) mg/dl Est Cr Clr Drug Dosing ml/min Est GFR ( Amer) ml/min Est GFR (Non-Af Amer) ml/min BUN/Creatinine Ratio (10-20) Glucose (70-99(Fasting)) mg/dl Calcium (8.5-10.1) mg/dl Magnesium (1.7-2.4) mg/dl Total Creatine Kinase (30-223) U/L Troponin I High Sens (0-20) pg/ml Aldolase Free T4 1.20 (0.61-1.60) ng/dl Free T3 3.48 (2.3-4.2) pg/ml RPR Nonreactive (Nonreactive) 04/25/22 Range/Units 08:09 WBC (4.8-10.8) K/ul RBC (4.63-6.08) M/uL Hgb (14.0-18.0) g/dl Hct (40.1-51.0) % MCV (80.0-100.0) fL MCH (25.0-34.0) pg MCHC (32.0-36.0) g/dL RDW Std Deviation (36.4-46.3) fL RDW Coeff of Razia (11.5-14.5) % Plt Count (130-400) K/uL MPV (9.4-12.4) fL Immature Gran % (Auto) % Neut % (Auto) % Lymph % (Auto) % [place] % (Auto) % Eos % (Auto) % Baso % (Auto) % Neut # (Auto) (1.4-6.5) K/uL Lymph # (Auto) (1.2-3.4) K/uL [place] # (Auto) (0.24-0.82) K/uL Eos # (Auto) (0-0.50) K/uL Baso # (Auto) (0-0.2) K/uL Immature Gran # (Auto) (0.00-0.02) K/uL APTT (21.0-31.0) Seconds PTT Ratio Sodium (136-145) mmol/L Potassium (3.5-5.1) mmol/L Chloride (98-107) mmol/L Carbon Dioxide (21-32) mmol/L Anion Gap (3-11) BUN (6-23) mg/dl Creatinine (0.6-1.4) mg/dl Est Cr Clr Drug Dosing ml/min Est GFR ( Amer) ml/min Est GFR (Non-Af Amer) ml/min BUN/Creatinine Ratio (10-20) Glucose (70-99(Fasting)) mg/dl Calcium (8.5-10.1) mg/dl Magnesium (1.7-2.4) mg/dl Total Creatine Kinase (30-223) U/L Troponin I High Sens 9.8 (0-20) pg/ml Aldolase Free T4 (0.61-1.60) ng/dl Free T3 (2.3-4.2) pg/ml RPR (Nonreactive) PG Care Time/CCT Total # of Minutes Spent Total Time Spent with Patient: Total time spent is greater than 50% in coordination of care (as documented) at patient's floor/unit and/or counseling patient: Coding Level of Care Code 16916 Subseq Hosp Care Lvl 3 Diagnoses Atrial fibrillation with RVR I48.91 Tremor of both hands R25.1 Iron deficiency anemia D50.9 Barretts esophagus K22.70 Dyspnea on exertion R06.09 Generalized weakness R53.1 Rash R21 Hypertension I10 Dyslipidemia E78.5 Hypothyroidism E03.9 Constipation K59.00
[2022-04-26] MEDS: PANTOprazole 40 MG TAB PO SCH ×2 (08:06→21:20)
[2022-04-26] MEDS: CYANOCOBALAMIN (B-12) 500 MCG TABLET PO SCH (08:07)
[2022-04-26] MEDS: METOPROLOL TARTRATE 25 MG TAB PO SCH (08:08)
[2022-04-26] MEDS: DOCUSATE SODIUM/SENNA 50/8.6MG TAB PO SCH (08:08)
[2022-04-26] MEDS: IRON SUCROSE 300 MG in SODIUM CHLORIDE 0.9% 250 ML IV SCH (08:46)
[2022-04-26] MEDS ORDERED: ASPIRIN 81 MG ECTAB PO SCH (09:00)
--- NOTE | 2022-04-26 11:24 | Neurology Progress Note ---
Date of Service April 26, 2022 Assessment & Plan (1) Tremor of both hands: (2) Iron deficiency anemia: (3) Atrial fibrillation with RVR: Plan 82-year-old male with subacute onset bilateral upper extremity postural/action tremor occurring in the context of iron deficiency anemia as well as a new diagnosis of atrial fibrillation with rapid ventricular response. No acute changes on recent brain MRI. Patient does not have parkinsonian signs or symptoms. I suspect he has underlying benign essential tremor which has been augmented recently in the context of significant iron deficiency anemia and a new diagnosis of atrial fibrillation with rapid ventricular response. He has been started on a low-dose of metoprolol. Metoprolol does have a modest tremor dampening effect and he should continue with this medication, there may be some room to increase the dosage going forward depending on his clinical status. He should continue treatment for iron deficiency anemia. He may have a component of restless leg syndrome as well and was started on the low-dose of pramipexole. I plan to reassess this patient in neurology clinic in 3 to 4 weeks, may consider either increasing his metoprolol at that time or possibly adding primidone to further address his tremor if necessary. Admission and Anticipated Discharge Date Admission Date: April 22, 2022 Subjective Follow-up for tremor The patient continues to exhibit a mild bilateral upper extremity postural/action tremor. No pill-rolling resting tremor, rigidity, or bradykinesia. His tremor mildly interferes with activities that require fine motor control and again, was of fairly recent onset, occurring in the context of iron deficiency anemia as well as new onset atrial fibrillation with rapid ventricular response. Patient was evaluated by cardiology yesterday, he was started on amiodarone, anticoagulation was recommended as well. He was also started on metoprolol. I again reviewed patient's case from a neurological perspective directly with the patient this morning including the relative acute to subacute onset of his tremor, iron deficiency anemia, new diagnosis of atrial fibrillation with rapid ventricular response, family history of tremor in the brother, although potentially related to hypoglycemia, current treatment for iron deficiency anemia as well as medication adjustments for his atrial fibrillation, unremarkable brain MRI. I explained to the patient that I suspect he has an underlying tendency for tremor which appears consistent with benign essential tremor rather than Parkinson's disease. I discussed symptomatic management of tremor. He was just started on metoprolol, there may be some room to increase the dosage of this medication going forward. Alternatively, primidone may be an option for him as well. Ultimately, I recommended waiting a few weeks before introducing a new medication to his regimen. Results & Data ([facility]) Vital Signs (Past 12 Hours) Vital Signs Temp Pulse Pulse Resp BP BP Pulse Ox 04/26/22 08:00 78 04/26/22 07:31 36.7 C 76 22 153/73 H 97 04/26/22 03:00 36.7 C 73 18 136/72 96 O2 Del Method 04/26/22 08:00 04/26/22 07:31 Room Air 04/26/22 03:00 Room Air Laboratory Results WBC 11.00, hemoglobin 8.6, hematocrit 29.3, MCV 75.3, platelet count 318, sodium 137, potassium 3.6, BUN 19, creatinine 0.98, glucose 90, calcium 8.4, magnesium 2.1, total CK 240. Exam (Neuro) Neurologic: Oriented to:: Person, Place and Time Memory: Short Term Intact and Remote Intact Attention: Span Intact and Concentration Intact Speech Fluency: negative Dysarthria or Dysfluency Fund of Knowledge: Vocabulary Cranial Nerves: Normal II, III, IV, and VII Motor Strength: Normal Lower Extremities and Normal Upper Extremities Rigidity: None Muscle Bulk/Involuntary Movements: Intention Tremor and Action Tremor; negative Pill Rolling Tremor PG Care Time/CCT Total # of Minutes Spent Total Time Spent with Patient: Total time spent is greater than 50% in coordination of care (as documented) at patient's floor/unit and/or counseling patient: Coding Level of Care Code 22724 Subseq Hosp Care Lvl 2 Diagnoses Tremor of both hands R25.1 Iron deficiency anemia D50.9 Atrial fibrillation with RVR I48.91
[2022-04-26 11:42] LABS: Partial Thromboplastin Ratio 2.7
[2022-04-26 11:49] LABS: Partial Thromboplastin Time 75.2 Seconds (21.0-31.0)
[2022-04-26 11:53] LABS: Basophils # (auto) 0.09 K/uL (0-0.2); Basophils % (auto) 0.8 %; Eosinophils # (auto) 0.42 K/uL (0-0.50); Eosinophils % (auto) 3.9 %; Immature Granulocytes # (auto) 0.06 K/uL (0.00-0.02); Immature Granulocytes % (auto) 0.6 %; Lymphocytes # (auto) 2.04 K/uL (1.2-3.4); Lymphocytes % (auto) 19.1 %; Monocytes # (auto) 0.98 K/uL (0.24-0.82); Monocytes % (auto) 9.2 %; Neutrophils # (auto) 7.07 K/uL (1.4-6.5); Neutrophils % (auto) 66.4 %
--- NOTE | 2022-04-26 12:32 | Cardiology Progress Note ---
Date of Service April 26, 2022 Assessment & Plan (1) Atrial fibrillation with RVR: (2) Chest discomfort: (3) Dyspnea on exertion: (4) Hypertension: (5) Tremor of both hands: Plan ASSESSMENT/PLAN: 1. AFib with RVR: Did not tolerate atrial fibrillation as he was quite symptomatic and with hypotension. He converted with amiodarone and has remained in sinus rhythm. Given that he did not tolerate the arrhythmia, would consider continuing amiodarone but can change to oral therapy. He is on anticoagulation therapy an anemia worsened. Has been noted to have esophageal varices and gastric erosion in the past. Given that he was significantly symptomatic with AFib and current bleed risk, would be concerned with ongoing anticoagulation therapy with worsening anemia. If he should have recurrent atrial fibrillation, could consider Watchman device in the future. Hospitalist service, Alina Ann, has reported that she touch base with GI as well, who did not support ongoing anticoagulation therapy. 2. Chest pain: Has described atypical chest pain as an outpatient which improved with belching. He also had chest discomfort while in AFib with elevated heart rates. It is not clear if these chest pains are exactly the same. Given his GI findings in the past, would consider possibility that GI etiology is contributing. Discussed noninvasive ischemia evaluation given dyspnea with exertion as well. 3. Dyspnea with exertion: He does not appear to be hypervolemic. Recommend noninvasive ischemic evaluation. Pursuing myocardial perfusion study tomorrow. No caffeine for the next 24 hours until study has been completed. Avoiding dobutamine stress echo given AFib yesterday. 4. Hypertension: Blood pressure has mostly been well controlled. No changes made at this time. 5. Tremor: As per Neurology and primary service. Atrial fibrillation would not be the cause of his tremor as he had tremors before the AFib diagnosis and has been in sinus rhythm for most of this hospital stay with ongoing tremors, despite sinus rhythm. Amiodarone can cause tremor but his tremor predates the amiodarone which was initiated on 04/25/2022. If there is concern about using amiodarone going forward, amiodarone can be discontinued and if AFib returns, can pursue other treatment strategies at that time. Will defer to primary hospitalist service. 6. Esophageal varices: Has not had any noted bleeding but has anemia. Unclear if he has had further evaluation in regards to hepatic disease with noted varices. Defer to GI. Also noted to have gastric erosion in the past. Anticoagulation therapy is being discontinued as noted above. Hospitalist service has reached out to GI. Anemia has worsened. Receiving intravenous iron. 7. Disposition: Patient care communicated with primary hospitalist service, Alina Ann, and personally discussed with Dr. Meeks. Cardiology will continue to follow. Attempted phone call to discuss with his and updated her in regards to cardiology care, but there was no answer. Admission and Anticipated Discharge Date Admission Date: April 22, 2022 Subjective Patient seen this morning. He continues to have tremor. He denies any further chest pain, shortness of breath, and denies palpitations. He has remained in sinus rhythm since converting yesterday with amiodarone. He has not noted any bleeding such as melena, hematochezia, or hematuria. He was alone in his hospital room. Physical Exam Physical Exam: Gen.: No acute distress. Alert. HEENT: Anicteric sclera. Neck: No JVD. Cardiac: No ventricular heave. Regular. Normal S1-S2. No murmurs, rubs, or gallops. Pulmonary: Clear to auscultation bilaterally without wheezes, rales, or rhonchi. Abdomen: Soft, nontender, nondistended, with normoactive bowel sounds. No bruits noted. Extremities: 2+ radial pulses bilaterally. 2+ posterior tibialis pulses bilaterally. No edema or cyanosis. Psychiatric: Affect appears appropriate. Results & Data ([facility]) Vital Signs (Past 12 Hours) Vital Signs Temp Pulse Pulse Resp BP BP Pulse Ox 04/26/22 08:00 04/26/22 08:00 78 04/26/22 07:31 36.7 C 76 22 153/73 H 97 04/26/22 03:00 36.7 C 73 18 136/72 96 O2 Del Method 04/26/22 08:00 Room Air 04/26/22 08:00 04/26/22 07:31 Room Air 04/26/22 03:00 Room Air Intake & Output 04/24/22 04/25/22 04/26/22 04/27/22 06:59 06:59 06:59 06:59 Intake Total 960 / 960 3013.285 / 3013.285 666.333 / 666.333 Output Total 450 / 450 725 / 725 876 / 876 400 / 400 Balance -450 / -450 235 / 235 2137.285 / 2137.285 266.333 / 266.333 Weight 212 lb 1.355 oz 207 lb 3.752 oz Laboratory Results Laboratory Results - last 24 hr 04/25/22 04/25/22 04/25/22 08:09 10:51 10:51 WBC RBC Hgb Hct MCV MCH MCHC RDW Std Deviation RDW Coeff of Razia Plt Count MPV Immature Gran % (Auto) Neut % (Auto) Lymph % (Auto) [place] % (Auto) Eos % (Auto) Baso % (Auto) Neut # (Auto) Lymph # (Auto) [place] # (Auto) Eos # (Auto) Baso # (Auto) Immature Gran # (Auto) APTT PTT Ratio Sodium Potassium Chloride Carbon Dioxide Anion Gap BUN Creatinine Est Cr Clr Drug Dosing Est GFR ( Amer) Est GFR (Non-Af Amer) BUN/Creatinine Ratio Glucose Calcium Magnesium Total Creatine Kinase Troponin I High Sens 9.8 Aldolase Free T4 1.20 Free T3 RPR Nonreactive 04/25/22 04/25/22 04/26/22 10:51 19:42 03:13 WBC 11.00 H RBC 3.89 L Hgb 8.6 L Hct 29.3 L MCV 75.3 L MCH 22.1 L MCHC 29.4 L RDW Std Deviation 53.1 H RDW Coeff of Razia 19.8 H Plt Count 318 MPV 8.4 L Immature Gran % (Auto) 0.6 Neut % (Auto) 66.4 Lymph % (Auto) 19.1 [place] % (Auto) 9.2 Eos % (Auto) 3.9 Baso % (Auto) 0.8 Neut # (Auto) 7.07 H Lymph # (Auto) 2.04 [place] # (Auto) 0.98 H Eos # (Auto) 0.42 Baso # (Auto) 0.09 Immature Gran # (Auto) 0.06 H APTT 40.3 H PTT Ratio 1.5 Sodium Potassium Chloride Carbon Dioxide Anion Gap BUN Creatinine Est Cr Clr Drug Dosing Est GFR ( Amer) Est GFR (Non-Af Amer) BUN/Creatinine Ratio Glucose Calcium Magnesium Total Creatine Kinase Troponin I High Sens Aldolase Free T4 Free T3 3.48 RPR 04/26/22 04/26/22 04/26/22 03:13 03:13 03:13 WBC RBC Hgb Hct MCV MCH MCHC RDW Std Deviation RDW Coeff of Razia Plt Count MPV Immature Gran % (Auto) Neut % (Auto) Lymph % (Auto) [place] % (Auto) Eos % (Auto) Baso % (Auto) Neut # (Auto) Lymph # (Auto) [place] # (Auto) Eos # (Auto) Baso # (Auto) Immature Gran # (Auto) APTT 42.1 H PTT Ratio 1.5 Sodium 137 Potassium 3.6 Chloride 108 H Carbon Dioxide 21 Anion Gap 8 BUN 19 Creatinine 0.98 Est Cr Clr Drug Dosing 67.6 Est GFR ( Amer) 84.1 Est GFR (Non-Af Amer) 72.5 BUN/Creatinine Ratio 19.4 Glucose 90 Calcium 8.4 L Magnesium 2.1 Total Creatine Kinase 240 H Troponin I High Sens Aldolase Pending Free T4 Free T3 RPR 04/26/22 10:59 WBC RBC Hgb Hct MCV MCH MCHC RDW Std Deviation RDW Coeff of Razia Plt Count MPV Immature Gran % (Auto) Neut % (Auto) Lymph % (Auto) [place] % (Auto) Eos % (Auto) Baso % (Auto) Neut # (Auto) Lymph # (Auto) [place] # (Auto) Eos # (Auto) Baso # (Auto) Immature Gran # (Auto) APTT 75.2 H* PTT Ratio 2.7 Sodium Potassium Chloride Carbon Dioxide Anion Gap BUN Creatinine Est Cr Clr Drug Dosing Est GFR ( Amer) Est GFR (Non-Af Amer) BUN/Creatinine Ratio Glucose Calcium Magnesium Total Creatine Kinase Troponin I High Sens Aldolase Free T4 Free T3 RPR Diagnostic Findings Telemetry personally reviewed: Has remained in sinus rhythm since converting from AFib yesterday. Chart reviewed. Medications Administered Current Inpatient Medications Cyanocobalamin (Cyanocobalamin (B-12) 500 Mcg Tablet) 500 mcg PO QAM [facility] Stop: 05/24/22 08:59 Last Admin: 04/26/22 08:07 Dose: 500 mcg Heparin Sodium/Dextrose (Heparin Sodium/Dextrose) 25,000 units in 500 mls @ 23 mls/hr IV .[id number] [facility]; Protocol Stop: 05/25/22 12:29 Last Titration: 04/26/22 04:29 Dose: 1,150 units/hr, 23 mls/hr Amiodarone HCl/Dextrose (Nexterone / D5w) 360 mg in 200 mls @ 16.667 mls/hr IV .Q12H [facility] Stop: 05/25/22 17:29 Last Admin: 04/26/22 02:07 Dose: 0.5 mg/min, 16.7 mls/hr Iron Sucrose 300 mg/ Sodium (Chloride) 265 mls @ 176.667 mls/hr IV DAILY@0900 [facility] Stop: 04/27/22 10:29 Last Infusion: 04/26/22 10:43 Dose: Infused Levothyroxine Sodium (Levothyroxine Sodium 100 Mcg Tablet) 100 mcg PO DAILYBB [facility] Stop: 05/23/22 06:29 Last Admin: 04/26/22 06:06 Dose: 100 mcg Lovastatin (Lovastatin 20 Mg Tab) 20 mg PO DAILY@1800 [facility] Stop: 05/24/22 17:59 Last Admin: 04/25/22 17:06 Dose: 20 mg Metoprolol Tartrate (Metoprolol Tartrate 25 Mg Tab) 12.5 mg PO QAM [facility] Stop: 05/25/22 13:29 Last Admin: 04/26/22 08:08 Dose: 12.5 mg Metronidazole (Metronidazole 0.75% Topical Gel 45 Gm Tube) 1 appln TOP [facility] Stop: 05/05/22 20:59 Last Admin: 04/25/22 20:29 Dose: 1 appln Nitroglycerin (Nitroglycerin Sl 0.4 Mg/Tab Tab) 0.4 mg SL PRN PRN PRN Reason: chest pain Stop: 05/25/22 13:03 Ondansetron HCl (Ondansetron Inj 2 Mg/Ml 2 Ml Vial) 4 mg IV Q6H PRN PRN Reason: Nausea Stop: 05/22/22 22:54 Pantoprazole Sodium (Pantoprazole 40 Mg Tab) 40 mg PO BID [facility] Stop: 05/26/22 08:59 Last Admin: 04/26/22 08:06 Dose: 40 mg Polyethylene Glycol (Polyethylene (Miralax) 17 Gm Pack) 17 gm PO [facility] Stop: 05/23/22 20:59 Last Admin: 04/25/22 20:29 Dose: 17 gm Pramipexole Dihydrochloride (Pramipexole Dihydrochlo 0.25 Mg Tab) 0.25 mg PO QAM [facility] Stop: 05/26/22 11:29 Senna/Docusate Sodium (Docusate Sodium/Senna 50/8.6mg Tab) 1 tab PO QAM [facility] Stop: 05/25/22 08:59 Last Admin: 04/26/22 08:08 Dose: 1 tab Triamcinolone Acetonide (Triamcinolone Acet 0.5% Cr 15 Gm Tube) 1 appln TOP DAILY PRN PRN Reason: Skin Irritation Stop: 05/25/22 13:03 Valsartan (Valsartan 80 Mg Tab) [facility] Stop: 05/23/22 08:59 Last Admin: 04/24/22 06:41 Dose: 80 mg PG Care Time/CCT Total # of Minutes Spent Total Time Spent with Patient: Total time spent is greater than 50% in coordination of care (as documented) at patient's floor/unit and/or counseling patient: Coding Level of Care Code 96973 Subseq Hosp Care Lvl 3 Diagnoses Atrial fibrillation with RVR I48.91 Chest discomfort R07.89 Dyspnea on exertion R06.09 Hypertension I10 Tremor of both hands R25.1
[2022-04-26] MEDS: PRAMIPEXOLE DIHYDROCHLO 0.25 MG TAB PO SCH (12:38)
--- NOTE | 2022-04-26 12:45 | Gastrointestinal Consultation ---
Date of Consultation April 26, 2022 Assessment & Plan (1) Atrial fibrillation with RVR: (2) Anemia: (3) Barretts esophagus: (4) Esophageal varices: Patient is an 82-year-old male found to have new onset of atrial fibrillation with RVR. May need long-term anticoagulation use however with history of iron d eficiency anemia, Jose's esophagus, erosive gastropathy and grade 3 esophageal varices without obvious signs of liver cirrhosis. He is definitely at high risk of bleeding with these medical comorbidities and if is started on anticoagulants. Options for primary prophylaxis against variceal hemorrhage include placing patient on nonselective beta-guille such as propranolol, nadolol or carvedilol titrating dose for target HR of 55-65 if pt can tolerate it. Alternatively endoscopic variceal ligation/banding can also be considered. He should discuss these options with his primary clammer ([facility]). No current indication for urgent inpt endoscopy procedures at this time. GI to sign off; pls recall prn. Supervising Physician Co-Signing Physician Notes I have personally seen and examined the patient with HODA Hilton on 04/26/22. Her note reflects my exam and findings. I agree with her impression and plan. No indication for endoscopy at this point. Will need to discuss Tx options with primary GI doc from [facility] who knows patient and continuity of care. Jez Flor M.D. History of Present Illness Reason for Consultation: Eval for anticoag use risk; hx of esophageal varices Requesting Physician: Dr. Laura Meeks Attending Physician: Dr. Jez Flor History of Present Illness Patient is an 82-year-old male admitted with tremors, generalized weakness, found to have new onset of atrial fibrillation currently on heparin and a miodarone drips. GI is consulted as patient may require long-term anticoagulation use. He does have a history of iron deficiency anemia. States that previously has had a work-up for this including bidirectional endoscopy and video capsule endoscopy through [facility]. Reports that his work-up has all been negative for GI sources of bleeding. However he does have a history of Jose's esophagus, erosive gastropathy and grade [address] His liver CT earlier this year without contrast showed no signs of liver cirrhosis. He denies any current symptoms of chest pain, shortness of breath, abdominal pain, nausea, vomiting, black or tarry stools, rectal bleeding. Allergies Allergy/AdvReac Type Severity Reaction Status Date / Time famotidine Allergy Intermediate Hives Verified 05/15/22 10:33 nitrofurantoin Allergy Intermediate Hives Verified 05/15/22 10:33 Penicillins Allergy Intermediate Hives Verified 05/15/22 10:33 Sulfa (Sulfonamide Allergy Intermediate Hives Verified 05/15/22 10:33 Antibiotics) adhesive AdvReac Intermediate skin tear Verified 05/15/22 10:33 Home Medications Medication Instructions Recorded Confirmed Type lytsaoidbzyg-qowadsjp-[id number] tablet 1 tab PO QPM 07/01/19 05/15/22 History aspirin 81 mg chewable tablet 81 mg PO QAM 07/04/19 05/15/22 History (Katy Chewable Low Dose Aspirin) metronidazole 0.75 % topical gel 1 applic topical HS rash 01/01/20 05/15/22 History triamcinolone acetonide 0.5 % 1 applic topical UD PRN Skin 01/01/20 05/15/22 History topical cream Irritation levothyroxine 100 mcg tablet 100 mcg PO QAM #90 tabs 02/02/22 05/15/22 Rx lovastatin 20 mg tablet 20 mg PO QPM #90 tabs 02/02/22 05/15/22 Rx polyethylene glycol 3350 17 17 g PO HS 04/22/22 05/15/22 History gram/dose oral powder (Miralax) benzonatate 100 mg capsule 100 mg PO TID PRN cough #20 caps 05/07/22 05/15/22 Rx cyanocobalamin (vitamin B-12) 1,000 mcg PO DAILY #90 caps 05/07/22 05/15/22 Rx 1,000 mcg capsule esomeprazole magnesium 40 mg 40 mg PO DAILY #30 caps 05/07/22 05/15/22 Rx capsule,delayed release (Nexium) primidone 50 mg tablet 25 mg PO BID #60 tabs 05/07/22 05/15/22 Rx propranolol 20 mg tablet 20 mg PO BID #60 tabs 05/07/22 05/15/22 Rx amiodarone 200 mg tablet 200 mg PO DAILY #90 tabs 05/15/22 05/15/22 Rx Patient History Medical History Anemia Jose's esophagus Esophageal varices GERD (gastroesophageal reflux disease) HLD (hyperlipidemia) [place] (hard of hearing) HTN (hypertension) Hypothyroidism Osteoarthritis Postoperative voiding difficulty Sensorineural hearing loss (SNHL) of both ears Tinnitus Surgical History H/O colonoscopy (08/2018) Hyperplastic polyps, recheck 10 years, [facility] H/O hemorrhoidectomy 1998 H/O rotator cuff surgery R shoulder, April 2021 History of basal cell carcinoma (BCC) excision History of cataract surgery Right: August 2013 Left: September 2013 History of esophagogastroduodenoscopy (EGD) (08/2018) Focal area of Jose's esophagus 36 cm, recheck 3 years, [facility] Family History Brother , age 46 Myocardial infarction Hx of CABG Hypertension Mother Hx of CABG Coronary heart disease Father Lung cancer "behind lungs" Other No family history of adverse response to anesthesia No family history of bleeding disorder Denies family history of Ovarian cancer Prostate cancer Breast cancer Colorectal cancer Social History Smoking Status: Never smoker Tobacco Type: Cigarettes Age Started Using Tobacco: 14; Age Quit Using Tobacco: 69; packs per day: 0.5; Cigarettes Per Day: 10; Second Hand Exposure: No; Hx Alcohol Use: Yes Alcohol type: hard liquor Hx Substance Use: No Preferred Language: Bruneian Communication Ability: Effective Visual Impairment: No Limitations Hearing Ability: Normal Manager Auto Required: No Beliefs That Will Affect Care: None marital status: Current Living Situation: Spouse current occupational status: retired current occupation: used to work with [employer] Feels Safe at Home: Yes Childhood Exposure to Second-Hand Smoke: No Dental Care, Regularly: Yes Physical Activity Frequency: Daily Physical Activity Frequency Comment: walk Seatbelt Use: always Sunscreen Use: No Assistive Devices: Cane Review of Systems Review of Systems: All systems reviewed & are unremarkable except as noted in HPI & below Physical Exam Constitutional: WD/WN, vitals as above well groomed, cooperative and comfortable Eyes: PERRL, conjunctivae normal, anicteric sclerae ENMT: external ear and nose normal, oropharynx normal Respiratory: normal respiratory effort, lungs clear to auscultation Cardiovascular: RRR, no murmur, no edema Gastrointestinal (Abdomen): normal bowel sounds, soft, nontender, no hepatosplenomegaly Skin: no rashes, warm and dry no jaundice Neurologic: Motor/Sensory: + tremor Psychiatric: A+Ox3, euthymic affect Lymphatic: no lymphedema Results & Data ([facility]) Vital Signs (Past 12 Hours) Vital Signs Temp Pulse Pulse Resp BP BP Pulse Ox 04/26/22 12:29 37.0 C 68 19 115/65 95 04/26/22 08:00 04/26/22 08:00 78 04/26/22 07:31 36.7 C 76 22 153/73 H 97 04/26/22 03:00 36.7 C 73 18 136/72 96 O2 Del Method 04/26/22 12:29 Room Air 04/26/22 08:00 Room Air 04/26/22 08:00 04/26/22 07:31 Room Air 04/26/22 03:00 Room Air
[2022-04-26] MEDS: HEPARIN SODIUM/DEXTROSE 25,000 UNITS/500 ML BAG IV SCH (12:52)
[2022-04-26] MEDS ORDERED: POTASSIUM CHLORIDE CRTAB 20 MEQ TABCR PO STA (13:16)
[2022-04-26] MEDS ORDERED: OPTIRAY 320 100ml IV ONE (15:00)
[2022-04-26 15:06] LABS: Babesia microti DNA Not Detected (Not Detected)
[2022-04-26] MEDS: AMIODARONE 200 MG TAB PO SCH (16:10)
--- NOTE | 2022-04-26 16:16 | CT Scan Report ---
CHEST CT WITH CONTRAST CT DOSE: 463.52 mGy.cm HISTORY: Acute generalized abdominal pain eval for cause of upper esophageal varicies TECHNIQUE: Multiaxial CT images of the chest were performed following the IV administration of 85 cc of Optiray. A dose lowering technique was utilized adhering to the principles of ALARA. COMPARISON: Chest CT and CT liver 10/18/2021 FINDINGS: Unremarkable thyroid. There is no lymphadenopathy. The heart is mildly enlarged. No pericar dial effusion. Extensive coronary artery calcifications. Atherosclerosis of the thoracic aorta withou t aneurysm. There is patency of the imaged great vessels. Unremarkable pulmonary artery. Nonspecific mildly enlarged right hilar lymph nodes measure up to 1.1 cm, unchanged. There is no pneumothorax, pleural effusion or overt pulmonary edema. Mild upper lung zone predominant paraseptal emphysema. There is mild subsegmental bibasilar atelectasis versus scarring with bronchia l wall thickening suggestive of bronchitis. There are no suspicious pulmonary nodules or masses ident ified. The central airways are patent. Small hiatal hernia. No esophageal varicosities are identified. Mild nonspecific mid to distal esopha geal wall thickening Colonic diverticulosis. Mild colonic fecal retention. There is questioned gallbl adder sludge. Unremarkable soft tissues. There is no acute fracture. Chronic T12 compression deformit y. IMPRESSION: 1. Emphysema without acute intrathoracic abnormality. 2. Small hiatal hernia with mild wall thickening of the distal esophagus again noted. No esophageal v aricosities are identified. ACT 112: Negative or not required by law. Electronically signed by: Betito Travis M.D. 04/26/2022 4:14 PM
[2022-04-26] MEDS: metroNIDAZOLE 0.75% TOPICAL GEL 45 GM TUBE TOP SCH (21:19)
[2022-04-26] MEDS: POLYETHYLENE (MIRALAX) 17 GM PACK PO SCH (21:22)
[2022-04-26 23:02] LABS: Appearance Urine Clear (Clear); Bacteria Urine Automated Negative (Negative); Bilirubin Urine Negative (Negative); Blood Urine Trace (Negative); Cast Urine Automated 0 /lpf (0-5); Color Urine Yellow; Epithelial Cell Urine Auto 0-5 /lpf (0-5); Glucose Urine UA Negative (Negative); Ketones Urine 1+ (Negative); Leukocyte Esterase Urine Negative (Negative); Nitrite Urine Negative (Negative); Protein Urine Negative (Negative); RBC Urine Automated 0-4 /hpf (0-4); Specific Gravity Urine 1.029 (1.000-1.030); Urobilinogen Urine Negative (Negative); pH Urine 5.5 (4.5-7.5)
[2022-04-27] MEDS: LEVOTHYROXINE SODIUM 100 MCG TABLET PO SCH (05:39)
[2022-04-27 07:02] LABS: Hematocrit (blood only) 32.5 % (40.1-51.0); Hemoglobin 9.5 g/dl (14.0-18.0); Mean Corpuscular Hemoglobin 22.2 pg (25.0-34.0); Mean Corpuscular Hgb Conc 29.2 g/dL (32.0-36.0); Mean Corpuscular Volume 76.1 fL (80.0-100.0); Mean Platelet Volume 8.4 fL (9.4-12.4); Nucleated RBC # (auto) 0.02 K/uL (0-0); Nucleated RBC % (auto) 0.2 %; Platelet Count 340 K/uL (130-400); RDW Coefficient of Variation 20.5 % (11.5-14.5); RDW Standard Deviation 52.9 fL (36.4-46.3); Red Blood Count 4.27 M/uL (4.63-6.08); White Blood Count 9.87 K/ul (4.8-10.8)
--- NOTE | 2022-04-27 07:08 | Hospitalist Progress Note ---
Date of Service April 27, 2022 Assessment & Plan (1) Tremor of both hands: Plan: 82 year old male w/ PMHx of subacute iron-deficiency anemia, HTN, HLD, hypothyroidism, and Jose's who presents w/ new onset intention tremors of bilateral upper and lower extremities, ambulatory dysfunction and generalized weakness . Neurology consulted Head CT negative MRI brain given nystagmus reported -- NEGATIVE Lyme testing/Anaplasmosis smear negative Babesiosis negative Ammonia wnl, denies etoh use. Does have varices but NO CIRRHOSIS, CT liver RPR checked given slight aortic regurg on echo --> negative Iron studies --> SEVERE deficiency, ferritin low at 4. -?RLS type picture -Venofer IV while inpatient -Trial pramipexole, will continue (did get 1x dose requip day prior for RLS and reported no improvement) Amio can make tremors worse, but tremors present prior -- could cloud picture with valsartan since discontinued as possible contributing cause? as patient did recently start valsartan in February and developed rash subsequently seen in March by dermatology who thought more chiggers, ?drug reaction from medication given timeline. Have been reports of small % patient with dystonic/myoclonic type reactions, moreso in combo sacubutril-valsartan than in valsartan alone, but still to be considered. Last dose 04/25 and should be out of system by today 04/27 CK elevated days past, mild now resolved with holding lovastatin (not new med but had been getting) Repeat Ck 217 and continue to hold statin for now Continue REPLACING IRON W/ VENOFER, PRAMIPEXOLE, WAIT FOR VALSARTAN TO WEAR OFF TO SEE IF ANY IMPROVEMENT? WILL NEED REHAB AT D/C OUTPT F/U NEUROLOGY 2-3 WEEKS ?Myasthenia, unlikely but will send panel w/ am testing given all other testing inconclusive given easy fatigability with ambulation, nystagmus observed previously, hoarse voice Appreciate neurology consultation-suspects benign essential tremor-recommends to start propranolol or primidone-Will start propranolol (2) Atrial fibrillation with RVR: Plan: Presented with new onset intention tremors over the past week, ambulatory dysfunction and generalized weakness. Was also seen in ER 8/5 for chest tightness and SHORTNESS OF BREATH * EKG on admit without arrhythmia, patient denied symptoms of palpitations but did endorse feeling lightheaded at times at home and progressive dyspnea on exertion when he used to walk 1 mile daily up until January when it was reduced to 2 blocks daily. ECHO 04/24 w/ normal LV size/function, EF 60-65% with no wma TSH wnl on admit -- did ?over treatment thyroid as takes med w/ other medications and checked T4/T3 for contribution to tremors/mild rhabdo on admit. These were normal Flipped into afib RVR 04/25, transfered to tele and given amiodarone flipped back to NSR afternoon Amio gtt transitioned to PO BID Continue metoprolol 12.5mg daily but could consider switching to propranolol to see if helps with tremor but would avoid making additional changes at same time today and can consider tomorrow if continued Cardiology following Nuclear stress ordered for this afternoon Planning to d/c heparin gtt --> risk >benefit given varices and history of gastric erosions Can f/u GI to discuss endoscopic variceal ligation/banding keep K>4, mag >2 (3) Iron deficiency anemia: Plan: Worsening over the past year (although appears to have been going on at least over past year or two with low hgb values), workup started as outpatient, including fall 2020 egd (grade 3 esophageal varices and gastric erosion) 10/2021 colonoscopy w/ polyps and non-bleeding hemorrhoids, 02/2022 negative capsule endoscopy. Microcytic. Severe iron deficiency -- not tolerated PO in past due to constipation reported Venofer IV while inpatient. B12 borderline and started replacement. Folate wnl LDH not elevated, 124. Peripheral smear without significant finding Hgb stable and improved (small drop day prior when getting IVF w/ afib RVR and hypoTN) Outpatient GI follow up to consider banding varices as above (4) Barretts esophagus: Plan: Chronic, continue PPI. EGD last year w/ grade 3 esophageal varices. Increased PPI to BID dosing and recommended increased dose at discharge --Per patient had increased to 40mg of esomeprazole (generic outpatient) without improvement in symptoms and he backed down to 20mg daily. Discussed with barretts should be on max PPI therapy and increased protonix to BID (5) Dyspnea on exertion: Plan: - x3 months, reportedly was able to walk a mile daily with his up until earlier this year, currently only able to go about 2 blocks. distant tobacco use With reported chest tightness last week, no further CP currently but endorses SOB on exertion EKG w/ CP Venofer IV as above Planning for nuc stress this afternoon 98% on RA (6) Generalized weakness: Plan: Multifactorial Iron deficiency anemia, possible viral mediated rash vs drug reaction vs other Venofer IV ordered, Echo/cards PT/OT consulted (7) Rash: Plan: unclear on timing given patient reported started however had seen dermatology previously end of the month for same, thought from mowing grass/chiggers ?drug induced from valsartan, would NOT continued this at d/c and BPs have been fine without it as well (8) Hypertension: Plan: Chronic On valsartan (new as above, switched from lisinopril for dry cough but office with lower BPs and NOT CONTINUING) Now on 12.5mg metoprolol daily BP 132/60 denies lightheadedness/dizziness (9) Dyslipidemia: Plan: Chronic, continue home lovastatin but will place on hold temporarily given slight elevation in CK but better than day before will continue to hold for now (10) Hypothyroidism: Plan: Chronic, continue home levothyroxine. [facility] wnl, [facility] contributing to tremors -- WNL Educated on correct way to take on empty stomach however patient insistent on taking it with AM meds (since d/c ASA and valsartan anyway) (11) Constipation: Plan: Chronic, continue home miralax qhs, added senna/docusate Has been having regular bowel movements Plan continued inpatient monitoring Admission and Anticipated Discharge Date Admission Date: April 22, 2022 Supervising Physician Co-Signing Physician Notes PA Supervision Note: I did not personally see or examine the patient today, but I verified all serna points of COSTA Ann's assessment and plan with the following exceptions/additions: None Subjective Eval this morning. Tremor with movement but not worse today. No chest pain but does have some shortness of breath with ambulation and when getting shaky. Does have some left sided neck pain this morning, MSK and reproducible on exam. Thinks he slept funny last night. Will add some topical Voltaren to see if effective. No increased pain with pending at the knee. Sister in law at bedside, discussed Venofer continued/medication for tremor and washout of valsartan and further follow up with neurology after discharge. Also discussed amiodarone can cause tremors and if improving on one could have side effects with that but importance of maintaining NSR reviewed. Also discussed AC and would discontinue after stress testing given risk. NIC inquired about tx for varices. Stated could consider follow up with [facility] GI outpatient to consider banding if able. Also discussed PPI BID recommended. He stated outpatient increased nexium didn't improve symptoms but he has less chest discomfort compared to days past and discussed protonix twice daily at discharge as well. Discussed tremor may not be completely resolved by the time he leaves but hopefully will be able to be manageable. Denies any fever/chills, nuclear stress for this afternoon. No abdominal pain/nausea and reported to have moved his bowels twice. Questions/concerns addressed at this time. Review of Systems Review of Systems: All systems reviewed & are unremarkable except as noted in HPI & below Physical Exam Physical Exam: General: WD male sitting up at side of bed, sister in law at bedside, NAD, no tremors at rest but increased with movement (about the same, p ossibly slightly better than day prior) HEENT: head normocephalic, atraumatic, eyes anicteric, mmm paraspinal muscle tenderness on the L neck, reproducible on exam, no meningeal signs Resp: CTAB, diminished in the bases, no wheezing, 98% on RA CV: regular rate/rhythm, no calf edema/tenderness, NVI, pulses palpable GI:+BS, nontender : no blancas MSK/Neuro: moves all extremities, increased tremor with movement b/l UE and LE, no focal deficit Skin: scattered lesions to upper thighs improved from day prior Results & Data Results & Data ([facility]) Vital Signs (Past 12 Hours) Vital Signs Temp Pulse Pulse Resp BP Pulse Ox O2 Del Method 04/27/22 07:02 36.5 C 88 18 128/70 96 Room Air 04/27/22 04:03 36.5 C 61 18 114/64 96 Room Air 04/27/22 00:13 74 04/26/22 23:09 36.9 C 63 18 126/65 95 Room Air 04/26/22 19:35 36.9 C 75 18 132/70 94 Laboratory Results 0804/27/22 04/27/22 Range/Units 06:30 06:30 06:30 WBC (4.8-10.8) K/ul RBC (4.63-6.08) M/uL Hgb (14.0-18.0) g/dl Hct (40.1-51.0) % MCV (80.0-100.0) fL MCH (25.0-34.0) pg MCHC (32.0-36.0) g/dL RDW Std Deviation (36.4-46.3) fL RDW Coeff of Razia (11.5-14.5) % Plt Count (130-400) K/uL MPV (9.4-12.4) fL Immature Gran % (Auto) % Neut % (Auto) % Lymph % (Auto) % Curry % (Auto) % Eos % (Auto) % Baso % (Auto) % Neut # (Auto) (1.4-6.5) K/uL Lymph # (Auto) (1.2-3.4) K/uL Curry # (Auto) (0.24-0.82) K/uL Eos # (Auto) (0-0.50) K/uL Baso # (Auto) (0-0.2) K/uL Immature Gran # (Auto) (0.00-0.02) K/uL Absolute Nucleated RBC (0-0) K/uL Nucleated RBC % (auto) % PT 11.4 (9.0-12.0) Seconds INR 1.1 (0.9-1.1) APTT (21.0-31.0) Seconds PTT Ratio Sodium 139 (136-145) mmol/L Potassium 4.2 (3.5-5.1) mmol/L Chloride 107 (98-107) mmol/L Carbon Dioxide 25 (21-32) mmol/L Anion Gap 7 (3-11) BUN 12 (6-23) mg/dl Creatinine 0.94 (0.6-1.4) mg/dl Est Cr Clr Drug Dosing 69.2 ml/min Est GFR ( Amer) 88.4 ml/min Est GFR (Non-Af Amer) 76.3 ml/min BUN/Creatinine Ratio 12.8 (10-20) Glucose 83 (70-99(Fasting)) mg/dl Calcium 9.2 (8.5-10.1) mg/dl Magnesium 2.1 (1.7-2.4) mg/dl Total Bilirubin 1.1 H (0.2-1.0) mg/dl AST 19 (13-39) U/L ALT 16 (7-52) U/L Alkaline Phosphatase 86 (34-104) U/L Total Creatine Kinase 217 (30-223) U/L Total Protein 6.9 (6.0-8.3) gm/dl Albumin 3.8 (3.4-5.0) gm/dl Globulin 3.1 (2.5-4.0) gm/dl Albumin/Globulin Ratio 1.2 (0.9-2) Angiotensin Convert Enz Pending Urine Color Urine Appearance (Clear) Urine pH (4.5-7.5) Ur Specific [place] (1.000-1.030) Urine Protein (Negative) Urine Glucose (UA) (Negative) Urine Ketones (Negative) Urine Blood (Negative) Urine Nitrite (Negative) Urine Bilirubin (Negative) Urine Urobilinogen (Negative) Ur Leukocyte Esterase (Negative) Urine WBC (Auto) (0-5) /hpf Urine RBC (Auto) (0-4) /hpf U Hyaline Cast (Auto) (0-5) /lpf U Epithel Cells (Auto) (0-5) /lpf Urine Bacteria (Auto) (Negative) Babesia microti DNA PCR (Not Detected) 04/27/22 04/26/22 04/26/22 Range/Units 06:30 22:16 10:59 WBC 9.87 (4.8-10.8) K/ul RBC 4.27 L (4.63-6.08) M/uL Hgb 9.5 L (14.0-18.0) g/dl Hct 32.5 L (40.1-51.0) % MCV 76.1 L (80.0-100.0) fL MCH 22.2 L (25.0-34.0) pg MCHC 29.2 L (32.0-36.0) g/dL RDW Std Deviation 52.9 H (36.4-46.3) fL RDW Coeff of Razia 20.5 H (11.5-14.5) % Plt Count 340 (130-400) K/uL MPV 8.4 L (9.4-12.4) fL Immature Gran % (Auto) % Neut % (Auto) % Lymph % (Auto) % Curry % (Auto) % Eos % (Auto) % Baso % (Auto) % Neut # (Auto) (1.4-6.5) K/uL Lymph # (Auto) (1.2-3.4) K/uL Curry # (Auto) (0.24-0.82) K/uL Eos # (Auto) (0-0.50) K/uL Baso # (Auto) (0-0.2) K/uL Immature Gran # (Auto) (0.00-0.02) K/uL Absolute Nucleated RBC 0.02 H (0-0) K/uL Nucleated RBC % (auto) 0.2 % PT (9.0-12.0) Seconds INR (0.9-1.1) APTT 75.2 H* (21.0-31.0) Seconds PTT Ratio 2.7 Sodium (136-145) mmol/L Potassium (3.5-5.1) mmol/L Chloride (98-107) mmol/L Carbon Dioxide (21-32) mmol/L Anion Gap (3-11) BUN (6-23) mg/dl Creatinine (0.6-1.4) mg/dl Est Cr Clr Drug Dosing ml/min Est GFR ( Amer) ml/min Est GFR (Non-Af Amer) ml/min BUN/Creatinine Ratio (10-20) Glucose (70-99(Fasting)) mg/dl Calcium (8.5-10.1) mg/dl Magnesium (1.7-2.4) mg/dl Total Bilirubin (0.2-1.0) mg/dl AST (13-39) U/L ALT (7-52) U/L Alkaline Phosphatase (34-104) U/L Total Creatine Kinase (30-223) U/L Total Protein (6.0-8.3) gm/dl Albumin (3.4-5.0) gm/dl Globulin (2.5-4.0) gm/dl Albumin/Globulin Ratio (0.9-2) Angiotensin Convert Enz Urine Color Yellow Urine Appearance Clear (Clear) Urine pH 5.5 (4.5-7.5) Ur Specific [place] 1.029 (1.000-1.030) Urine Protein Negative (Negative) Urine Glucose (UA) Negative (Negative) Urine Ketones 1+ H (Negative) Urine Blood Trace H (Negative) Urine Nitrite Negative (Negative) Urine Bilirubin Negative (Negative) Urine Urobilinogen Negative (Negative) Ur Leukocyte Esterase Negative (Negative) Urine WBC (Auto) 1-5 (0-5) /hpf Urine RBC (Auto) 0-4 (0-4) /hpf U Hyaline Cast (Auto) 0 (0-5) /lpf U Epithel Cells (Auto) 0-5 (0-5) /lpf Urine Bacteria (Auto) Negative (Negative) Babesia microti DNA PCR (Not Detected) 04/26/22 04/24/22 Range/Units 03:13 10:58 WBC (4.8-10.8) K/ul RBC (4.63-6.08) M/uL Hgb (14.0-18.0) g/dl Hct (40.1-51.0) % MCV (80.0-100.0) fL MCH (25.0-34.0) pg MCHC (32.0-36.0) g/dL RDW Std Deviation (36.4-46.3) fL RDW Coeff of Razia (11.5-14.5) % Plt Count (130-400) K/uL MPV (9.4-12.4) fL Immature Gran % (Auto) 0.6 % Neut % (Auto) 66.4 % Lymph % (Auto) 19.1 % Curry % (Auto) 9.2 % Eos % (Auto) 3.9 % Baso % (Auto) 0.8 % Neut # (Auto) 7.07 H (1.4-6.5) K/uL Lymph # (Auto) 2.04 (1.2-3.4) K/uL Curry # (Auto) 0.98 H (0.24-0.82) K/uL Eos # (Auto) 0.42 (0-0.50) K/uL Baso # (Auto) 0.09 (0-0.2) K/uL Immature Gran # (Auto) 0.06 H (0.00-0.02) K/uL Absolute Nucleated RBC (0-0) K/uL Nucleated RBC % (auto) % PT (9.0-12.0) Seconds INR (0.9-1.1) APTT (21.0-31.0) Seconds PTT Ratio Sodium (136-145) mmol/L Potassium (3.5-5.1) mmol/L Chloride (98-107) mmol/L Carbon Dioxide (21-32) mmol/L Anion Gap (3-11) BUN (6-23) mg/dl Creatinine (0.6-1.4) mg/dl Est Cr Clr Drug Dosing ml/min Est GFR ( Amer) ml/min Est GFR (Non-Af Amer) ml/min BUN/Creatinine Ratio (10-20) Glucose (70-99(Fasting)) mg/dl Calcium (8.5-10.1) mg/dl Magnesium (1.7-2.4) mg/dl Total Bilirubin (0.2-1.0) mg/dl AST (13-39) U/L ALT (7-52) U/L Alkaline Phosphatase (34-104) U/L Total Creatine Kinase (30-223) U/L Total Protein (6.0-8.3) gm/dl Albumin (3.4-5.0) gm/dl Globulin (2.5-4.0) gm/dl Albumin/Globulin Ratio (0.9-2) Angiotensin Convert Enz Urine Color Urine Appearance (Clear) Urine pH (4.5-7.5) Ur Specific [place] (1.000-1.030) Urine Protein (Negative) Urine Glucose (UA) (Negative) Urine Ketones (Negative) Urine Blood (Negative) Urine Nitrite (Negative) Urine Bilirubin (Negative) Urine Urobilinogen (Negative) Ur Leukocyte Esterase (Negative) Urine WBC (Auto) (0-5) /hpf Urine RBC (Auto) (0-4) /hpf U Hyaline Cast (Auto) (0-5) /lpf U Epithel Cells (Auto) (0-5) /lpf Urine Bacteria (Auto) (Negative) Babesia microti DNA PCR Not Detected (Not Detected) Diagnostic Findings Chest CT 04/26/22 12:[address] WITH CONTRAST CT DOSE: 463.52 mGy.cm HISTORY: Acute generalized abdominal pain eval for cause of upper esophageal varicies TECHNIQUE: Multiaxial CT images of the chest were performed following the IV administration of 85 cc of Optiray. A dose lowering technique was utilized adhering to the principles of ALARA. COMPARISON: Chest CT and CT liver 10/18/2021 FINDINGS: Unremarkable thyroid. There is no lymphadenopathy. The heart is mildly enlarged. No pericardial effusion. Extensive coronary artery calcifications. Atherosclerosis of the thoracic aorta without aneurysm. There is patency of the imaged great vessels. Unremarkable pulmonary artery. Nonspecific mildly enlarged right hilar lymph nodes measure up to 1.1 cm, unchanged. There is no pneumothorax, pleural effusion or overt pulmonary edema. Mild upper lung zone predominant paraseptal emphysema. There is mild subsegmental bibasilar atelectasis versus scarring with bronchial wall thickening suggestive of bronchitis. There are no suspicious pulmonary nodules or masses identified. The central airways are patent. Small hiatal hernia. No esophageal varicosities are identified. Mild nonspecific mid to distal esophageal wall thickening Colonic diverticulosis. Mild colonic fecal retention. There is questioned gallbladder sludge. Unremarkable soft tissues. There is no acute fracture. Chronic T12 compression deformity. IMPRESSION: 1. Emphysema without acute intrathoracic abnormality. 2. Small hiatal hernia with mild wall thickening of the distal esophagus again noted. No esophageal varicosities are identified. ACT 112: Negative or not required by law. Electronically signed by: Betito Travis M.D. 04/26/2022 4:14 PM PG Care Time/CCT Total # of Minutes Spent Total Time Spent with Patient: Total time spent is greater than 50% in coordination of care (as documented) at patient's floor/unit and/or counseling patient: Coding Level of Care Code 31727 Subseq Hosp Care Lvl 3 Diagnoses Tremor of both hands R25.1 Atrial fibrillation with RVR I48.91 Iron deficiency anemia D50.9 Barretts esophagus K22.70 Dyspnea on exertion R06.09 Generalized weakness R53.1 Rash R21 Hypertension I10 Dyslipidemia E78.5 Hypothyroidism E03.9 Constipation K59.00
[2022-04-27 07:17] LABS: INR 1.1 (0.9-1.1); Prothrombin Time 11.4 Seconds (9.0-12.0)
[2022-04-27 07:24] LABS: Albumin Globulin Ratio 1.2 (0.9-2); Albumin Level 3.8 gm/dl (3.4-5.0); BUN Creatinine Ratio 12.8 (10-20); Bilirubin,Total 1.1 mg/dl (0.2-1.0); Calcium 9.2 mg/dl (8.5-10.1); Creatinine Clr Calc Pharmacy 69.2 ml/min; Est GFR (African American) 88.4 ml/min; Est GFR (Non-African American) 76.3 ml/min; Globulin 3.1 gm/dl (2.5-4.0); Magnesium 2.1 mg/dl (1.7-2.4); Potassium 4.2 mmol/L (3.5-5.1); Total Protein 6.9 gm/dl (6.0-8.3)
[2022-04-27] MEDS: CYANOCOBALAMIN (B-12) 500 MCG TABLET PO SCH (08:26)
[2022-04-27] MEDS: METOPROLOL TARTRATE 25 MG TAB PO SCH (08:26)
[2022-04-27] MEDS: PRAMIPEXOLE DIHYDROCHLO 0.25 MG TAB PO SCH (08:27)
[2022-04-27] MEDS: PANTOprazole 40 MG TAB PO SCH ×2 (08:27→20:35)
[2022-04-27] MEDS: AMIODARONE 200 MG TAB PO SCH ×2 (08:27→17:47)
[2022-04-27] MEDS: IRON SUCROSE 300 MG in SODIUM CHLORIDE 0.9% 250 ML IV SCH (09:01)
[2022-04-27] MEDS: DOCUSATE SODIUM/SENNA 50/8.6MG TAB PO SCH (09:01)
[2022-04-27] MEDS: DICLOFENAC SOD 1% GEL 100 GM TUBE EXT SCH ×2 (13:31→20:34)
[2022-04-27] MEDS ORDERED: REGADENOSON 0.4 MG/5 ML SYR IV ONE (13:55)
--- NOTE | 2022-04-27 16:50 | Myocardial Perfusion Study ---
Date of Service April 27, 2022 Myocardial Perfusion Study [facility] Myocardial Perfusion Study Report Procedure: 1. Myocardial perfusion study performed in multiple views/images 2. Lexiscan pharmacologic stress ECG Indications: 1. Dyspnea on exertion Ordering physician: Shaheen Procedural details: For the stress portion of the study, Lexiscan 0.4 mg was intravenously administered followed by a saline flush. This was followed by 32.6 mCi of technetium 99m Cardiolite, injected at 3:20 p.m. on 04/27/2022. 30 minutes following the injection, imaging of the heart was performed in multiple projections. For the rest portion of the study, 10.8 mCi technetium 99m Cardiolite was injected intravenously at 1:40 p.m. on 04/27/2022. 1 hour following the injection, imaging of the heart was performed in the same projections. Lexiscan stress ECG: Continuous ECG monitoring was performed with supervision and interpretation. Resting ECG demonstrated: Sinus rhythm 70 beats per minute. Nonspecific ST abnormality in the anterolateral leads. Incomplete RBBB. Maximum heart rate: 87 bpm Maximal, age-predicted heart rate: 62 % Resting blood pressure: 143/75 mmHg Maximum blood pressure: 143/[address] changes: [address] depression noted in leads V3, V4, V5, V6. Arrhythmia: None Symptoms: Mild chest tightness Findings: Rotating raw imaging demonstrated no significant lung uptake. There is no significant motion artifact. Heart size appeared normal. Myocardial perfusion demonstrated no significant reversible defect to suggest ischemia. There was a small area of mildly reduced uptake involving the inferior and inferoseptal wall segments proximally. These defects appeared to be predominantly fixed without reversible reversibility. There was also intestinal uptake noted which may interfere with evaluation of the inferior wall in both stress and rest images. Ejection fraction: 71 % Wall motion: Normal No significant transient ischemic dilation. Impression: 1. Negative myocardial perfusion study for ischemia. 2. Small fixed defect may be due to attenuation artifact given normal wall motion. 3. Lexiscan induced mild chest tightness. 4. Normal LV systolic function. EF 71%. 5. Abnormal Lexiscan stress ECG. [facility] Myocardial perfusion code Procedure Code Procedure 1: Myocardial Perfusion Codes: 37650 Cardiovascular Stress Test, multiple Procedure 2: Myocardial Perfusion Codes: 09610 Cardiovascular Stress Test, supervision only Procedure 3: Myocardial Perfusion Codes: 83135 Cardiovascular Stress Test, interpretation and report
--- NOTE | 2022-04-27 17:08 | Cardiology Progress Note ---
Date of Service April 27, 2022 Assessment & Plan (1) Atrial fibrillation with RVR: (2) Chest discomfort: (3) Dyspnea on exertion: (4) Hypertension: (5) Coronary artery calcification: (6) Tremor of both hands: Plan ASSESSMENT/PLAN: 1. AFib with RVR: Did not tolerate atrial fibrillation as he was quite symptomatic and with hypotension. He converted with amiodarone and has remained in sinus rhythm. Given that he did not tolerate the arrhythmia, would consider continuing amiodarone. Potential adverse reactions to amiodarone were discussed with him and his at the bedside on 04/27/2022. Anticoagulation therapy was discontinued due to anemia, esophageal varices, and gastric erosion. Also he was quite symptomatic with atrial fibrillation and should hopefully be able to detect if he has significant burden. If he should have recurrent atrial fibrillation, could consider Watchman device in the future. Monitor transaminase levels and TSH periodically as an outpatient. 2. Chest pain: Has described atypical chest pain as an outpatient which improved with belching. He also had chest discomfort while in AFib with elevated heart rates. It is not clear if these chest pains are exactly the same. Given his GI findings in the past, would consider possibility that GI etiology is contributing. No significant ischemia on myocardial perfusion imaging. 3. Dyspnea with exertion: He does not appear to be significantly hypervolemic but has received fluids for his medical therapy. Would try to maintain even or negative net fluid balance. BNP was unremarkable. Myocardial perfusion study without significant ischemia on 04/27/2022. CTA suggested emphysema. Consider PFTs. 4. Hypertension: Blood pressure reasonably controlled. No changes made at this time. 5. Tremor: As per Neurology and primary service. Amiodarone can cause tremor but his tremor predates the amiodarone which was initiated on 04/25/2022. If there is concern about using amiodarone going forward, amiodarone can be discontinued and if AFib returns, can pursue other treatment strategies at that time. Will defer to primary hospitalist service. 6. Coronary artery calcifications: Consider high-intensity statin therapy. Not on aspirin due to worsening anemia and previous GI findings. Continue beta- guille. No angina. 7. Anemia: As per primary hospitalist service and GI. Noted to have esophageal varices and history of gastric erosion. Receiving intravenous iron sup plementation. 8. Disposition: Patient care communicated with primary hospitalist service, Alina Ann. Cardiology will sign off at this time. If any other questions or concerns in the future, please do not hesitate to call the on-call wire frame dipper for [place] [facility]. Can follow-up in the cardiology office in approximately 2 weeks to help manage amiodarone as an outpatient. Admission and Anticipated Discharge Date Admission Date: April 22, 2022 Subjective He denies chest pain, shortness of breath at rest, orthopnea, syncope, near- syncope, palpitations. He has dyspnea with exertion. His biggest issue remains tremor and coordination issues while attempting to ambulate. His was present at the bedside. His 's concern today remains his ongoing tremors. She was updated about his cardiac issues. He underwent myocardial perfusion study today. Physical Exam Physical Exam: Gen.: No acute distress. Alert. HEENT: Anicteric sclera. Neck: No significant JVD. Cardiac: No ventricular heave. Regular. Normal S1-S2. No murmurs, rubs, or gallops. Pulmonary: Clear to auscultation bilaterally without wheezes, rales, or rhonchi. Abdomen: Soft, nontender, nondistended, with normoactive bowel sounds. No bruits noted. Extremities: 2+ radial pulses bilaterally. 2+ posterior tibialis pulses bilaterally. Trace bilateral lower extremity edema. No cyanosis. Psychiatric: Affect appears appropriate. Results & Data ([facility]) Vital Signs (Past 12 Hours) Vital Signs Temp Pulse Resp BP Pulse Ox O2 Del Method 04/27/22 12:00 36.5 C 72 16 132/60 98 04/27/22 08:00 Room Air 04/27/22 07:02 36.5 C 88 18 128/70 96 Room Air Laboratory Results Laboratory Results - last 24 hr 04/26/22 04/27/22 04/27/22 22:16 06:30 06:30 WBC 9.87 RBC 4.27 L Hgb 9.5 L Hct 32.5 L MCV 76.1 L MCH 22.2 L MCHC 29.2 L RDW Std Deviation 52.9 H RDW Coeff of Razia 20.5 H Plt Count 340 MPV 8.4 L Absolute Nucleated RBC 0.02 H Nucleated RBC % (auto) 0.2 PT 11.4 INR 1.1 Sodium Potassium Chloride Carbon Dioxide Anion Gap BUN Creatinine Est Cr Clr Drug Dosing Est GFR ( Amer) Est GFR (Non-Af Amer) BUN/Creatinine Ratio Glucose Calcium Magnesium Total Bilirubin AST ALT Alkaline Phosphatase Total Creatine Kinase Total Protein Albumin Globulin Albumin/Globulin Ratio Angiotensin Convert Enz Urine Color Yellow Urine Appearance Clear Urine pH 5.5 Ur Specific [place] 1.029 Urine Protein Negative Urine Glucose (UA) Negative Urine Ketones 1+ H Urine Blood Trace H Urine Nitrite Negative Urine Bilirubin Negative Urine Urobilinogen Negative Ur Leukocyte Esterase Negative Urine WBC (Auto) 1-5 Urine RBC (Auto) 0-4 U Hyaline Cast (Auto) 0 U Epithel Cells (Auto) 0-5 Urine Bacteria (Auto) Negative 04/27/22 04/27/22 06:30 06:30 WBC RBC Hgb Hct MCV MCH MCHC RDW Std Deviation RDW Coeff of Razia Plt Count MPV Absolute Nucleated RBC Nucleated RBC % (auto) PT INR Sodium 139 Potassium 4.2 Chloride 107 Carbon Dioxide 25 Anion Gap 7 BUN 12 Creatinine 0.94 Est Cr Clr Drug Dosing 69.2 Est GFR ( Amer) 88.4 Est GFR (Non-Af Amer) 76.3 BUN/Creatinine Ratio 12.8 Glucose 83 Calcium 9.2 Magnesium 2.1 Total Bilirubin 1.1 H AST 19 ALT 16 Alkaline Phosphatase 86 Total Creatine Kinase 217 Total Protein 6.9 Albumin 3.8 Globulin 3.1 Albumin/Globulin Ratio 1.2 Angiotensin Convert Enz Pending Urine Color Urine Appearance Urine pH Ur Specific [place] Urine Protein Urine Glucose (UA) Urine Ketones Urine Blood Urine Nitrite Urine Bilirubin Urine Urobilinogen Ur Leukocyte Esterase Urine WBC (Auto) Urine RBC (Auto) U Hyaline Cast (Auto) U Epithel Cells (Auto) Urine Bacteria (Auto) Diagnostic Findings Telemetry personally reviewed: Sinus rhythm. No arrhythmia. CTA chest 04/26/2022: Emphysema. Small hiatal hernia with mild wall thickening of the distal esophagus. Extensive coronary artery calcifications reported. Nuclear stress 04/27/2022: No significant ischemia on myocardial perfusion imaging. Medications Administered Current Inpatient Medications Amiodarone HCl (Amiodarone 200 Mg Tab) 200 mg PO BIDM [facility] Stop: 05/26/22 16:59 Last Admin: 04/27/22 08:27 Dose: 200 mg Cyanocobalamin (Cyanocobalamin (B-12) 500 Mcg Tablet) 500 mcg PO QAM [facility] Stop: 05/24/22 08:59 Last Admin: 04/27/22 08:26 Dose: 500 mcg Diclofenac Sodium (Diclofenac Sod 1% Gel 100 Gm Tube) 2 gm EXT BID [facility]; Protocol Stop: 05/27/22 11:59 Last Admin: 04/27/22 13:31 Dose: 2 gm Levothyroxine Sodium (Levothyroxine Sodium 100 Mcg Tablet) 100 mcg PO DAILYBB [facility] Stop: 05/23/22 06:29 Last Admin: 04/27/22 05:39 Dose: 100 mcg Lovastatin (Lovastatin 20 Mg Tab) 20 mg PO DAILY@1800 [facility] Stop: 05/24/22 17:59 Last Admin: 04/25/22 17:06 Dose: 20 mg Metronidazole (Metronidazole 0.75% Topical Gel 45 Gm Tube) 1 appln TOP [facility] Stop: 05/05/22 20:59 Last Admin: 04/26/22 21:19 Dose: Not Given Nitroglycerin (Nitroglycerin Sl 0.4 Mg/Tab Tab) 0.4 mg SL PRN PRN PRN Reason: chest pain Stop: 05/25/22 13:03 Ondansetron HCl (Ondansetron Inj 2 Mg/Ml 2 Ml Vial) 4 mg IV Q6H PRN PRN Reason: Nausea Stop: 05/22/22 22:54 Pantoprazole Sodium (Pantoprazole 40 Mg Tab) 40 mg PO BID [facility] Stop: 05/26/22 08:59 Last Admin: 04/27/22 08:27 Dose: 40 mg Polyethylene Glycol (Polyethylene (Miralax) 17 Gm Pack) 17 gm PO [facility] Stop: 05/23/22 20:59 Last Admin: 04/26/22 21:22 Dose: 17 gm Pramipexole Dihydrochloride (Pramipexole Dihydrochlo 0.25 Mg Tab) 0.25 mg [facility] Stop: 05/26/22 11:29 Last Admin: 04/27/22 08:27 Dose: 0.25 mg Propranolol HCl (Propranolol Hcl 20 Mg Tab) 20 mg PO BID [facility] Stop: 05/27/22 20:59 Senna/Docusate Sodium (Docusate Sodium/Senna 50/8.6mg Tab) 1 tab PO QAAMG [facility] Stop: 05/25/22 08:59 Last Admin: 04/27/22 09:01 Dose: Not Given Triamcinolone Acetonide (Triamcinolone Acet 0.5% Cr 15 Gm Tube) 1 appln TOP DAILY PRN PRN Reason: Skin Irritation Stop: 05/25/22 13:03 Valsartan (Valsartan 80 Mg Tab) 80 mg PO QAM [facility] Stop: 05/23/22 08:59 Last Admin: 04/24/22 06:41 Dose: 80 mg PG Care Time/CCT Total # of Minutes Spent Total Time Spent with Patient: Total time spent is greater than 50% in coordination of care (as documented) at patient's floor/unit and/or counseling patient: Coding Level of Care Code 03459 Subseq Hosp Care Lvl 3 Diagnoses Atrial fibrillation with RVR I48.91 Chest discomfort R07.89 Dyspnea on exertion R06.09 Hypertension I10 Coronary artery calcification I25.10; I25.84 Tremor of both hands R25.1
[2022-04-27] MEDS: POLYETHYLENE (MIRALAX) 17 GM PACK PO SCH (20:33)
[2022-04-27] MEDS: metroNIDAZOLE 0.75% TOPICAL GEL 45 GM TUBE TOP SCH (20:34)
[2022-04-27] MEDS: PROPRANOLOL HCL 20 MG TAB PO SCH (20:37)
[2022-04-28] MEDS: LEVOTHYROXINE SODIUM 100 MCG TABLET PO SCH (06:40)
[2022-04-28 07:19] LABS: Hematocrit (blood only) 34.2 % (40.1-51.0); Hemoglobin 10.1 g/dl (14.0-18.0); Mean Corpuscular Hemoglobin 22.8 pg (25.0-34.0); Mean Corpuscular Hgb Conc 29.5 g/dL (32.0-36.0); Mean Corpuscular Volume 77.2 fL (80.0-100.0); Mean Platelet Volume 8.3 fL (9.4-12.4); Nucleated RBC # (auto) 0.02 K/uL (0-0); Nucleated RBC % (auto) 0.2 %; Platelet Count 340 K/uL (130-400); RDW Coefficient of Variation 21.4 % (11.5-14.5); RDW Standard Deviation 53.1 fL (36.4-46.3); Red Blood Count 4.43 M/uL (4.63-6.08); White Blood Count 9.77 K/ul (4.8-10.8)
[2022-04-28 07:49] LABS: BUN Creatinine Ratio 15.8 (10-20); Calcium 9.1 mg/dl (8.5-10.1); Creatinine Clr Calc Pharmacy 64.3 ml/min; Est GFR (Non-African American) 69.9 ml/min; Magnesium 2.1 mg/dl (1.7-2.4); Potassium 3.7 mmol/L (3.5-5.1)
[2022-04-28] MEDS: PRAMIPEXOLE DIHYDROCHLO 0.25 MG TAB PO SCH (08:19)
[2022-04-28] MEDS: DICLOFENAC SOD 1% GEL 100 GM TUBE EXT SCH ×2 (08:19→21:03)
[2022-04-28] MEDS: CYANOCOBALAMIN (B-12) 500 MCG TABLET PO SCH (08:19)
[2022-04-28] MEDS: PROPRANOLOL HCL 20 MG TAB PO SCH (08:20)
[2022-04-28] MEDS: DOCUSATE SODIUM/SENNA 50/8.6MG TAB PO SCH (08:20)
[2022-04-28] MEDS: AMIODARONE 200 MG TAB PO SCH ×2 (08:20→17:46)
[2022-04-28] MEDS: PANTOprazole 40 MG TAB PO SCH ×2 (08:20→21:04)
--- NOTE | 2022-04-28 09:24 | Neurology Progress Note ---
Date of Service April 28, 2022 Assessment & Plan (1) Tremor of both hands: (2) Iron deficiency anemia: Plan Mild to moderate bilateral upper extremity postural/action tremor occurring in the context of significant iron deficiency anemia, requiring treatment with IV iron. I suspect this patient has benign essential tremor which has been augmented by his iron deficiency anemia. I expect his tremor to modestly improved with treatment of his anemia. However, he likely has some underlying tendency for essential tremor. He reports that his brother also has a tremor. I plan to reassess him in neurology clinic in about 3 weeks, at which time we may consider adding primidone to further dampen his tremor if necessary. I see that his metoprolol has been discontinued in favor of propranolol. Propranolol may be more effective than metoprolol for tremor dampening. He is also prescribed amiodarone in the context of recently diagnosed atrial fibrillation with rapid ventricular response. He does not have signs or symptoms suggestive of Parkinson's disease at this time. Patient may follow-up with either myself or one of our SALLY's in neurology clinic in 3 to 4 weeks after discharge for ongoing management of his tremor. Admission and Anticipated Discharge Date Admission Date: April 22, 2022 Subjective Follow-up for tremor Patient continues to exhibit a mild bilateral upper extremity postural/action tremor although he remarks that the tremor seems modestly improved in the context of his current hospitalization. The tremor minimally interferes with using eating utensils and other skills that require fine motor control. He has not had significant difficulty eating or drinking from his tray during this hospitalization. He has been getting treatment for iron deficiency anemia with IV iron. Has also been evaluated by cardiology for new onset atrial fibrillation with rapid ventricular response. Unable to take anticoagulation due to anemia, esophageal varices, gastric erosion. Consideration for Watchman device if patient were to have recurrent atrial fibrillation going forward. Patient's metoprolol has been discontinued, now on propranolol 20 mg twice daily, also on amiodarone. Patient has also been started on pramipexole to address RLS. Review of Systems Constitutional: no fever and no fatigue Eyes: no blind spots and no diplopia Neurologic: as per Subjective / HPI, + tremor(s) and + restless legs; no localized weakness and no memory loss Results & Data ([facility]) Vital Signs (Past 12 Hours) Vital Signs Temp Pulse Resp BP Pulse Ox O2 Del Method 04/28/22 08:00 36.8 C 84 18 118/64 94 Room Air 04/28/22 03:45 36.9 C 69 17 122/65 97 Room Air 04/28/22 00:01 36.5 C 66 18 149/76 H 94 Room Air Laboratory Results WBC 9.77, hemoglobin 10.1, hematocrit 34.2, MCV 77.2, platelet count 340, sodium 138, potassium 3.7, BUN 16, creatinine 1.01, glucose 87, calcium 9.1, magnesium 2.1 Diagnostic Findings Brain MRI completed April 23, 2022 negative for acute abnormality. No abnormal postcontrast enhancement. There is mild atrophy and minimal chronic small vessel ischemic change. Patient had a myocardial perfusion study/stress test completed yesterday, negative for ischemia. Exam (Neuro) Neurologic: Oriented to:: Person, Place and Time Attention: Span Intact and Concentration Intact Speech Fluency: negative Dysarthria or Dysfluency Fund of Knowledge: Vocabulary Cranial Nerves: Normal II, III, IV, and VII Motor Strength: Normal Lower Extremities and Normal Upper Extremities Rigidity: None Muscle Bulk/Involuntary Movements: Action Tremor; negative Pill Rolling Tremor or Rest Tremor (Arm) Coordination: negative Finger-Nose Abnormal or Heel-Abdi Abnormal Coding Level of Care Code 49737 Subseq Hosp Care Lvl 2 Diagnoses Tremor of both hands R25.1 Iron deficiency anemia D50.9
[2022-04-28] MEDS ORDERED: PROPRANOLOL HCL 10 MG TAB PO STA (12:59)
--- NOTE | 2022-04-28 13:00 | Hospitalist Progress Note ---
Date of Service April 28, 2022 Assessment & Plan (1) Tremor of both hands: Plan: 82 year old male w/ PMHx of subacute iron-deficiency anemia, HTN, HLD, hypothyroidism, and Jose's who presents w/ new onset intention tremors of bilateral upper and lower extremities, ambulatory dysfunction and generalized weakness . Neurology consulted Head CT negative MRI brain given nystagmus reported -- NEGATIVE Lyme testing/Anaplasmosis smear negative Babesiosis negative Ammonia wnl, denies etoh use. Does have varices but NO CIRRHOSIS, CT liver RPR checked given slight aortic regurg on echo --> negative Iron studies --> SEVERE deficiency, ferritin low at 4. -?RLS type picture -Venofer IV while inpatient -Trial pramipexole, will continue Amio can make tremors worse, but tremors present prior to starting this -recently started valsartan -Have been reports of small % patient with dystonic/myoclonic type reactions, moreso in combo sacubutril-valsartan than in valsartan alone, but still to be considered. Last dose 04/25 and should be out of system now With some reported generalized weakness on admission as well--> MG labs pending; CK only mildly elevated and returned to normal; aldolase mildly elevated but no real other signs of myositis Appreciate Neuro consult--> most likely Benign essential tremor--> Tremors improved since starting propranolol 20mg po bid but still present--> increase to 30mg po bid f/u with Neuro in 3 weeks and may add primidone at that time (2) Atrial fibrillation with RVR: Plan: Presented with new onset intention tremors over the past week, ambulatory dysfunction and generalized weakness. Was also seen in ER 04/21 for chest tightness and SHORTNESS OF BREATH * EKG on admit without arrhythmia, patient denied symptoms of palpitations but did endorse feeling lightheaded at times at home and progressive dyspnea on exertion when he used to walk 1 mile daily up until January when it was reduced to 2 blocks daily. ECHO 04/24 w/ normal LV size/function, EF 60-65% with no wma TSH, FT3, F4 normal Flipped into afib RVR 04/25, transferred to tele and given amiodarone flipped back to NSR shortly afterwards Amio gtt transitioned to PO BID now on propranolol for tremor as above which would also help with rates Cardiology following Nuclear stress negative for ischemia No anticoagulation given risk >benefit given varices and history of gastric erosions, with ongoing severe Fe deficiency anemia Can f/u GI to discuss endoscopic variceal ligation/banding keep K>4, mag >2 monitor on tele f/u with Cardio as outpt (3) Iron deficiency anemia: Plan: Worsening over the past year (although appears to have been going on at least over past year or two with low hgb values), workup started as outpatient, including fall 2020 egd (grade 3 esophageal varices and gastric erosion) 10/2021 colonoscopy w/ polyps and non-bleeding hemorrhoids, 02/2022 negative capsule endoscopy. Microcytic. Severe iron deficiency -- not tolerated PO in past due to constipation reported Venofer IV while inpatient. B12 borderline and started replacement. Folate wnl LDH not elevated, 124. Peripheral smear without significant finding Hgb stable and improved (small drop day prior when getting IVF w/ afib RVR and hypoTN) Outpatient GI follow up to consider banding varices as above Also though, could be celiac disease with malabsorption--> again, f/u with GI (4) Barretts esophagus: Plan: Chronic, continue PPI. EGD last year w/ grade 3 esophageal varices. Increased PPI to BID dosing and recommended increased dose at discharge --Per patient had increased to 40mg of esomeprazole (generic outpatient) without improvement in symptoms and he backed down to 20mg daily. Discussed with barretts should be on max PPI therapy and increased protonix to BID (5) Dyspnea on exertion: Plan: - x3 months, reportedly was able to walk a mile daily with his up until earlier this year, currently only able to go about 2 blocks. distant tobacco use With reported chest tightness last week, no further CP currently but endorses SOB on exertion EKG w/ CP Venofer IV as above for anemia nuc stress negative 98% on RA (6) Generalized weakness: Plan: Multifactorial Iron deficiency anemia, possible viral mediated rash vs drug reaction vs other with elevated aldolase and mildly elevated CK as above but dount myositis Venofer IV ordered, Echo/cards PT/OT consulted (7) Rash: Plan: unclear on timing given patient reported started however had seen dermatology previously end of the month for same, thought from mowing grass/chiggers ?drug induced from valsartan, would NOT continued this at d/c and BPs have been fine without it as well (8) Hypertension: Plan: Chronic On valsartan (new as above, switched from lisinopril for dry cough but office with lower BPs and NOT CONTINUING) Now on propranolol (9) Dyslipidemia: Plan: Chronic, continue home lovastatin but will place on hold temporarily given sl ight elevation in CK but better than day before will continue to hold for now (10) Hypothyroidism: Plan: Chronic, continue home levothyroxine. TSH wnl, F4/t3 -- WNL (11) Constipation: Plan: Chronic, continue home miralax qhs, added senna/docusate Has been having regular bowel movements Plan Medically stable for discharge, awaiting rehab placement at [facility] bed today Admission and Anticipated Discharge Date Admission Date: April 22, 2022 Subjective Pt feels his tremor is better today but still present. No other concerns. Walked with PT/OT and felt pretty good in the halls. Not too happy about having to go to rehab. Tele with NSR, normal rates Review of Systems Review of Systems: All systems reviewed & are unremarkable except as noted in HPI & below Physical Exam Constitutional: WD/WN, vitals as above Eyes: + anicteric sclerae Neck: trachea midline, no thyromegaly Respiratory: normal respiratory effort, lungs clear to auscultation Cardiovascular: RRR, no murmur, no edema Chest (Breasts): Chest: normal inspection of chest Gastrointestinal (Abdomen): normal bowel sounds, soft, nontender, no hepatosplenomegaly Musculoskeletal: Extremities: extremities normal to inspection; no cyanosis and no clubbing Skin: no rashes, warm and dry Neurologic: moves all extremities and awake; no focal motor deficits Motor/Sensory: + tremor (fine action tremor mostly in hands/arms,very mild in legs) Psychiatric: A+Ox3, euthymic affect Lymphatic: no lymphedema Results & Data Results & Data ([facility]) Vital Signs (Past 12 Hours) Vital Signs Temp Pulse Resp BP Pulse Ox O2 Del Method 04/28/22 11:51 36.8 C 65 18 135/67 95 Room Air 04/28/22 08:00 36.8 C 84 18 118/64 94 Room Air 04/28/22 03:45 36.9 C 69 17 122/65 97 Room Air Laboratory Results 04/28/22 06:41 04/28/22 06:41 PG Care Time/CCT Total # of Minutes Spent Total Time Spent with Patient: Total time spent is greater than 50% in coordination of care (as documented) at patient's floor/unit and/or counseling patient: Coding Level of Care Code 98861 Subseq Hosp Care Lvl 3 Diagnoses Tremor of both hands R25.1 Atrial fibrillation with RVR I48.91 Iron deficiency anemia D50.9 Barretts esophagus K22.70 Dyspnea on exertion R06.09 Generalized weakness R53.1 Rash R21 Hypertension I10 Dyslipidemia E78.5 Hypothyroidism E03.9 Constipation K59.00
[2022-04-28] MEDS: metroNIDAZOLE 0.75% TOPICAL GEL 45 GM TUBE TOP SCH (21:03)
[2022-04-28] MEDS: PROPRANOLOL HCL 10 MG TAB PO SCH (21:05)
[2022-04-28] MEDS: POLYETHYLENE (MIRALAX) 17 GM PACK PO SCH (21:18)
[2022-04-29] MEDS: LEVOTHYROXINE SODIUM 100 MCG TABLET PO SCH (05:42)
[2022-04-29] MEDS: PANTOprazole 40 MG TAB PO SCH ×2 (08:24→20:20)
[2022-04-29] MEDS: CYANOCOBALAMIN (B-12) 500 MCG TABLET PO SCH (08:25)
[2022-04-29] MEDS: PRAMIPEXOLE DIHYDROCHLO 0.25 MG TAB PO SCH (08:25)
[2022-04-29] MEDS: DICLOFENAC SOD 1% GEL 100 GM TUBE EXT SCH ×2 (08:25→20:22)
[2022-04-29] MEDS: PROPRANOLOL HCL 10 MG TAB PO SCH (08:25)
[2022-04-29] MEDS: AMIODARONE 200 MG TAB PO SCH ×2 (08:25→17:36)
[2022-04-29] MEDS: DOCUSATE SODIUM/SENNA 50/8.6MG TAB PO SCH (10:53)
--- NOTE | 2022-04-29 17:25 | Hospitalist Progress Note ---
Date of Service April 29, 2022 Assessment & Plan (1) Tremor of both hands: Plan: 82 year old male w/ PMHx of subacute iron-deficiency anemia, HTN, HLD, hypothyroidism, and Jose's who presents w/ new onset intention tremors of bilateral upper and lower extremities, ambulatory dysfunction and generalized weakness . Neurology consulted Head CT negative MRI brain with and w/o con -- NEGATIVE Lyme testing/Anaplasmosis smear negative Babesiosis negative Ammonia wnl, denies etoh use. Does have varices but NO CIRRHOSIS, CT liver RPR checked given slight aortic regurg on echo --> negative Iron studies --> SEVERE deficiency, ferritin low at 4. --> replaced with IV Venofer x 3 doses -?RLS type picture-->Trial pramipexole, will continue TSH normal at 2.73 B12 borderline low in low 300s Amio can make tremors worse, but tremors present prior to starting this -recently started valsartan -Have been reports of small % patient with dystonic/myoclonic type reactions, moreso in combo sacubutril-valsartan than in valsartan alone, but still to be considered. Last dose 04/25 and should be out of system now With some reported generalized weakness on admission as well--> MG labs pending; CK only mildly elevated and returned to normal; aldolase mildly elevated but no real other signs of myositis Appreciate Neuro consult--> most likely Benign essential tremor--> Tremors improved since starting propranolol 20mg po bid but still present--> increase again today to 40mg po bid f/u with Neuro in 3 weeks and may add primidone at that time -will check heavy metal panel and ceruloplasmin in AM for toxicity and Andi's diseas -continue f/u with Neuro after discharge -replace B12 with IM 1000 mcg daily x 2 doses then continue po dosing for borderlie low B12 (in 300s) (2) Atrial fibrillation with RVR: Plan: Presented with new onset intention tremors over the past week, ambulatory dysfunction and generalized weakness. Was also seen in ER 04/21 for chest tightness and SHORTNESS OF BREATH * EKG on admit without arrhythmia, patient denied symptoms of palpitations but did endorse feeling lightheaded at times at home and progressive dyspnea on exertion when he used to walk 1 mile daily up until January when it was reduced to 2 blocks daily. ECHO 04/24 w/ normal LV size/function, EF 60-65% with no wma TSH, FT3, F4 normal Flipped into afib RVR 04/25, transferred to tele and given amiodarone flipped back to NSR shortly afterwards Amio gtt transitioned to PO BID now on propranolol for tremor as above which would also help with rates Cardiology following Nuclear stress negative for ischemia No anticoagulation given risk >benefit given varices and history of gastric erosions, with ongoing severe Fe deficiency anemia Can f/u GI to discuss endoscopic variceal ligation/banding keep K>4, mag >2 monitor on tele f/u with Cardio as outpt (3) Iron deficiency anemia: Plan: Worsening over the past year (although appears to have been going on at least over past year or two with low hgb values), workup started as outpatient, including fall 2020 egd (grade 3 upper third esophageal varices and gastric erosion) 10/2021 colonoscopy w/ polyps and non-bleeding hemorrhoids, 02/2022 negative capsule endoscopy. Microcytic. Severe iron deficiency -- not tolerated PO Fe in past due to constipation gave Venofer IV while inpatient. B12 borderline and started replacement. Folate wnl LDH not elevated, 124. Peripheral smear without significant finding Hgb stable and improved (small drop day prior when getting IVF w/ afib RVR and hypoTN) Outpatient GI follow up to consider banding varices as above Chest CT performed due to known upper esophageal varices and no chest masses or vascular anomalies noted Also though, could be celiac disease with malabsorption--> again, f/u with GI--> I do not see that biopsies for celiac were performed -add on celiac panel to labs in AM (4) Barretts esophagus: Plan: Chronic, continue PPI. EGD last year w/ grade 3 esophageal varices. Discussed with barretts should be on max PPI therapy and increased protonix to BID (5) Dyspnea on exertion: Plan: - x3 months, reportedly was able to walk a mile daily with his up until earlier this year, currently only able to go about 2 blocks. distant tobacco use With reported chest tightness last week, no further CP currently but endorses SOB on exertion EKG w/ CP Venofer IV as above for anemia nuc stress negative here 98% on RA (6) Generalized weakness: Plan: Multifactorial Iron deficiency anemia, possible viral mediated rash vs drug reaction vs other with elevated aldolase and mildly elevated CK as above but doubt myositis Venofer IV ordered PT/OT consulted-recommends rehab (7) Rash: Plan: unclear on timing given patient reported started however had seen dermatology previously end of the month for same, thought from mowing grass/chiggers ?drug induced from valsartan, would NOT continued this at d/c and BPs have been fine without it as well (8) Hypertension: Plan: Chronic Was on valsartan (new as above, switched from lisinopril for dry cough but office with lower BPs and NOT CONTINUING) Now on propranolol (9) Dyslipidemia: Plan: Chronic, continue home lovastatin but placed on hold temporarily given slight elevation in CK but better than day before -restart statin follow CPK (10) Hypothyroidism: Plan: Chronic, continue home levothyroxine. TSH wnl, F4/t3 -- WNL (11) Constipation: Plan: Chronic, continue home miralax qhs, added senna/docusate Has been having regular bowel movements Plan Medically stable for discharge, awaiting rehab placement at [facility] and insurance auth good for Sunday-needs transport arranged Admission and Anticipated Discharge Date Admission Date: April 22, 2022 Subjective Pt feels ok, tremor in hands and arms about the same as yesterday. He denies tremor in legs but RN reports he is "wobbly" on his feet. Pt denies any other problems and is willing to go to rehab tomorrow. 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 Tele with NSR, rates 60-70s Review of Systems Review of Systems: All systems reviewed & are unremarkable except as noted in HPI & below Physical Exam Constitutional: WD/WN, vitals as above Eyes: + anicteric sclerae Neck: trachea midline, no thyromegaly Respiratory: normal respiratory effort, lungs clear to auscultation Cardiovascular: RRR, no murmur, no edema Chest (Breasts): Chest: normal inspection of chest Gastrointestinal (Abdomen): normal bowel sounds, soft, nontender, no hep atosplenomegaly Musculoskeletal: Extremities: extremities normal to inspection; no cyanosis and no clubbing Skin: no rashes, warm and dry Neurologic: moves all extremities and awake; no focal motor deficits Motor/Sensory: + tremor (fine-moderate action tremor mostly in hands/arms) Psychiatric: A+Ox3, euthymic affect Lymphatic: no lymphedema Results & Data Results & Data ([facility]) Vital Signs (Past 12 Hours) Vital Signs Temp Pulse Pulse Resp BP BP Pulse Ox 04/29/22 16:38 69 04/29/22 15:00 36.8 C 67 20 117/63 94 04/29/22 11:28 36.6 C 71 20 111/64 97 04/29/22 07:25 36.6 C 63 18 128/75 95 04/29/22 07:36 59 L O2 Del Method 04/29/22 16:38 04/29/22 15:00 Room Air 04/29/22 11:28 Room Air 04/29/22 07:25 Room Air 04/29/22 07:36 Laboratory Results 04/27/22 Range/Units 06:30 Angiotensin Convert Enz 19 (9-67) U/L PG Care Time/CCT Total # of Minutes Spent Total Time Spent with Patient: Total time spent is greater than 50% in coordination of care (as documented) at patient's floor/unit and/or counseling patient: Coding Level of Care Code 58111 Subseq Hosp Care Lvl 3 Diagnoses Tremor of both hands R25.1 Atrial fibrillation with RVR I48.91 Iron deficiency anemia D50.9 Barretts esophagus K22.70 Dyspnea on exertion R06.09 Generalized weakness R53.1 Rash R21 Hypertension I10 Dyslipidemia E78.5 Hypothyroidism E03.9 Constipation K59.00
[2022-04-29] MEDS: LOVASTATIN 20 MG TAB PO SCH (18:39)
[2022-04-29] MEDS: CYANOCOBALAMIN 1000 MCG/ML VIAL IM SCH (18:39)
[2022-04-29] MEDS: PROPRANOLOL HCL 20 MG TAB PO SCH (20:21)
[2022-04-29] MEDS: POLYETHYLENE (MIRALAX) 17 GM PACK PO SCH ×2 (20:21→22:00)
[2022-04-29] MEDS: metroNIDAZOLE 0.75% TOPICAL GEL 45 GM TUBE TOP SCH (20:22)
[2022-04-30] MEDS: LEVOTHYROXINE SODIUM 100 MCG TABLET PO SCH (05:02)
[2022-04-30 07:37] LABS: Basophils # (auto) 0.05 K/uL (0-0.2); Basophils % (auto) 0.5 %; Eosinophils # (auto) 0.24 K/uL (0-0.50); Eosinophils % (auto) 2.4 %; Hematocrit (blood only) 33.7 % (40.1-51.0); Hemoglobin 9.9 g/dl (14.0-18.0); Immature Granulocytes # (auto) 0.09 K/uL (0.00-0.02); Immature Granulocytes % (auto) 0.9 %; Lymphocytes # (auto) 0.55 K/uL (1.2-3.4); Lymphocytes % (auto) 5.5 %; Mean Corpuscular Hgb Conc 29.4 g/dL (32.0-36.0); Mean Corpuscular Volume 78.2 fL (80.0-100.0); Mean Platelet Volume 8.6 fL (9.4-12.4); Monocytes # (auto) 0.88 K/uL (0.24-0.82); Monocytes % (auto) 8.8 %; Neutrophils # (auto) 8.24 K/uL (1.4-6.5); Neutrophils % (auto) 81.9 %; Platelet Count 298 K/uL (130-400); RDW Coefficient of Variation 22.5 % (11.5-14.5); RDW Standard Deviation 52.2 fL (36.4-46.3); Red Blood Count 4.31 M/uL (4.63-6.08); White Blood Count 10.05 K/ul (4.8-10.8)
[2022-04-30] MEDS ORDERED: COUGH DROP (SUGAR FREE) LOZ 24 LOZ/1 BOX BUCCAL STA (07:48)
[2022-04-30] MEDS ORDERED: COUGH DROP (SUGAR FREE) LOZ 24 LOZ/1 BOX BUCCAL ONE (07:53)
[2022-04-30 07:54] LABS: Albumin Globulin Ratio 1.2 (0.9-2); Albumin Level 3.8 gm/dl (3.4-5.0); BUN Creatinine Ratio 21.1 (10-20); Bilirubin,Total 1.1 mg/dl (0.2-1.0); Calcium 8.9 mg/dl (8.5-10.1); Est GFR (African American) 87.3 ml/min; Est GFR (Non-African American) 75.3 ml/min; Globulin 3.2 gm/dl (2.5-4.0); Potassium 4.2 mmol/L (3.5-5.1)
[2022-04-30] MEDS: PROPRANOLOL HCL 20 MG TAB PO SCH ×2 (08:11→21:46)
[2022-04-30] MEDS: DICLOFENAC SOD 1% GEL 100 GM TUBE EXT SCH ×2 (08:12→21:41)
[2022-04-30] MEDS: PANTOprazole 40 MG TAB PO SCH ×2 (08:12→21:41)
[2022-04-30] MEDS: PRAMIPEXOLE DIHYDROCHLO 0.25 MG TAB PO SCH (08:12)
[2022-04-30] MEDS: CYANOCOBALAMIN 1000 MCG/ML VIAL IM SCH (08:12)
[2022-04-30] MEDS: AMIODARONE 200 MG TAB PO SCH ×2 (08:12→17:01)
[2022-04-30 08:14] LABS: Anisocytosis Present; Ovalocytes 1+; Poikilocytosis Present; Polychromasia 1+
--- NOTE | 2022-04-30 09:06 | XRay Report ---
XR chest 1V portable CLINICAL HISTORY: fever,COVID,cough. COMPARISON STUDY: 04/22/2022 TECHNIQUE: 1 view of the chest FINDINGS: Single frontal view of the chest demonstrates the cardiomediastinal silhouette to be within normal li mits. The lungs are clear of alveolar opacities. There is no evidence for pleural effusion. There is no evidence for vascular congestion. There is no acute osseous pathology. IMPRESSION: 1. No acute cardiopulmonary disease. ACT 112: Negative or not required by law. Electronically signed by: Gustavo Perez M.D. 04/30/2022 9:05 AM
[2022-04-30] MEDS ORDERED: REMDESIVIR 200 MG in SODIUM CHLORIDE 0.9% 210 ML IV ONE (09:15)
[2022-04-30] MEDS: dexAMETHasone 6 MG in SYRINGE 0 ML IV SCH (09:57)
[2022-04-30] MEDS: DOCUSATE SODIUM/SENNA 50/8.6MG TAB PO SCH (10:07)
[2022-04-30] MEDS ORDERED: ACETAMINOPHEN 325 MG TAB PO PRN (10:25)
--- NOTE | 2022-04-30 10:26 | Hospitalist Progress Note ---
Date of Service April 30, 2022 Assessment & Plan (1) Tremor of both hands: Plan: 82 year old male w/ PMHx of subacute iron-deficiency anemia, HTN, HLD, hypothyroidism, and Jose's who presents w/ new onset intention tremors of bilateral upper and lower extremities, ambulatory dysfunction and generalized weakness . Neurology consulted Head CT negative MRI brain with and w/o con -- NEGATIVE Lyme testing/Anaplasmosis smear negative Babesiosis negative Ammonia wnl, denies etoh use. Does have varices but NO CIRRHOSIS, CT liver RPR checked given slight aortic regurg on echo --> negative Iron studies --> SEVERE deficiency, ferritin low at 4. --> replaced with IV Venofer x 3 doses -?RLS type picture-->Trial pramipexole, will continue TSH normal at 2.73 B12 borderline low in low 300s Amio can make tremors worse, but tremors present prior to starting this Recently started valsartan -Have been reports of small % patient with dystonic/myoclonic type reactions, moreso in combo sacubitril-valsartan than in valsartan alone, but still to be considered. Last dose 04/25 and should be out of system now With some reported generalized weakness on admission as well--> MG labs pending; CK only mildly elevated and returned to normal; aldolase mildly elevated but no real other signs of myositis Appreciate Neuro consult--> most likely Benign essential tremor--> Tremors improved since starting propranolol but still present-->titrated up to 40mg po bid-keep same dose for now f/u with Neuro in 3 weeks and may add primidone at that time -will check heavy metal panel and ceruloplasmin in AM for toxicity and Andi's disease--> PENDING -continue f/u with Neuro after discharge -replace B12 with IM 1000 mcg daily x 2 doses then continue po dosing for borderline low B12 (in 300s) (2) COVID-19: Plan: Started having cough, nasal congestion, low grade fever overnight 04/29 Tested positive on 04/30 (initially negative on admission 04/22) Is fully vaxxed and boosted x 1, never had COVID prevously POx 94%, high risk for severe disease given age and comorbidities -checked CXR-negative for PNA -start Remdesevir x 5 day course-last day 05/04 -start dexamethasone 6mg daily-last dose 05/09--watch for worsening of tremor -supplemental O2 as needed for POx< 90% -tylenol prn fever, sore throat -monitor for worsening -check CRP, CBC, CMP in AM -moved to isolation room (3) Atrial fibrillation with RVR: Plan: Presented with new onset intention tremors over the past week, ambulatory dysfunction and generalized weakness. Was also seen in ER 04/21 for chest tightness and SOB EKG on admit without arrhythmia, patient denied symptoms of palpitations but did endorse feeling lightheaded at times at home and progressive dyspnea on exertion when he used to walk 1 mile daily up until January when it was reduced to 2 blocks daily. ECHO 04/24 w/ normal LV size/function, EF 60-65% with no wma TSH, FT3, F4 normal Flipped into afib RVR 04/25, transferred to tele and given amiodarone Reverted back to NSR shortly afterwards Amio gtt transitioned to PO BID now on propranolol for tremor as above which would also help with rates Cardiology following Nuclear stress negative for ischemia No anticoagulation given risk >benefit given varices and history of gastric erosions, with ongoing severe Fe deficiency anemia Can f/u GI to discuss endoscopic variceal ligation/banding keep K>4, mag >2 monitor on tele f/u with Cardio as outpt (4) Iron deficiency anemia: Plan: Worsening over the past year (although appears to have been going on at least over past year or two with low hgb values), workup started as outpatient, including fall 2020 egd (grade 3 upper third esophageal varices and gastric erosion) 10/2021 colonoscopy w/ polyps and non-bleeding hemorrhoids, 02/2022 negative capsule endoscopy. Microcytic. Severe iron deficiency-- not tolerated PO Fe in past due to constipation gave Venofer IV while inpatient. B12 borderline and started replacement. Folate wnl LDH not elevated, 124. Peripheral smear without significant finding Hgb stable and improved to 10 Outpatient GI follow up to consider banding varices as above Chest CT performed due to known upper esophageal varices and no chest masses or vascular anomalies noted Also though, could be celiac disease with malabsorption--> again, f/u with GI--> I do not see that biopsies for celiac were performed -add on celiac panel to labs in AM-PENDING (5) Barretts esophagus: Plan: Chronic, continue PPI. EGD last year w/ grade 3 esophageal varices. Discussed with barretts should be on max PPI therapy and increased protonix to BID (6) Dyspnea on exertion: Plan: - x3 months, reportedly was able to walk a mile daily with his up until earlier this year, currently only able to go about 2 blocks. distant tobacco use With reported chest tightness last week, no further CP currently but endorses SOB on exertion EKG w/ CP Venofer IV as above for anemia nuc stress negative here Now with new onset COVID, POx 94% (7) Generalized weakness: Plan: Multifactorial Iron deficiency anemia, possible viral mediated rash vs drug reaction vs other with elevated aldolase and mildly elevated CK as above but doubt myositis Venofer IV given PT/OT consulted-recommends rehab (8) Rash: Plan: unclear on timing given patient reported started however had seen dermatology previously end of the month for same, thought from mowing grass/chiggers ?drug induced from valsartan, would NOT continued this at d/c and BPs have been fine without it as well healing/improving (9) Hypertension: Plan: Chronic Was on valsartan (new as above, switched from lisinopril for dry cough but office with lower BPs and NOT CONTINUING) Now on propranolol (10) Dyslipidemia: Plan: Chronic, continue home lovastatin but placed on hold temporarily given slight elevation in CK but now normal -restarted statin (11) Hypothyroidism: Plan: Chronic, continue home levothyroxine. TSH wnl, F4/t3 -- WNL (12) Constipation: Plan: Chronic, continue home miralax qhs, added senna/docusate Has been having regular bowel movements Plan Dispo-discharge to SNF cancelled today due to new onset COVID-19 Admission and Anticipated Discharge Date Admission Date: April 22, 2022 Subjective Pt had a cough and was blowing mucus out of his nose all night, no sore throat or chest pain, no SOB, no nausea or abd pain, no headache. Had a low grade temp this AM. COVID test now positive. He feels very tired. Tele with NSR, normal rates Review of Systems Review of Systems: All systems reviewed & are unremarkable except as noted in HPI & below Physical Exam Constitutional: WD/WN, vitals as above Eyes: + anicteric sclerae Neck: trachea midline, no thyromegaly Respiratory: normal respiratory effort, lungs clear to auscultation Cardiovascular: RRR, no murmur, no edema Chest (Breasts): Chest: normal inspection of chest Gastrointestinal (Abdomen): normal bowel sounds, soft, nontender, no hepatosplenomegaly Musculoskeletal: Extremities: extremities normal to inspection; no cyanosis and no clubbing Skin: + rash (healing small scabbed over lesions inner thighs) Neurologic: moves all extremities and awake; no focal motor deficits Motor/Sensory: + tremor (fine-moderate action tremor mostly in hands/arms) Psychiatric: A+Ox3, euthymic affect Lymphatic: no lymphedema Results & Data Results & Data ([facility]) Vital Signs (Past 12 Hours) Vital Signs Temp Pulse Pulse Resp BP BP Pulse Ox 04/30/22 10:11 04/30/22 07:14 04/30/22 07:32 73 04/30/22 07:21 37.6 C H 76 16 117/58 L 94 04/30/22 03:26 37.4 C 106 H 18 119/64 96 04/29/22 22:30 37.0 C 72 18 119/64 94 04/29/22 23:06 75 O2 Del Method 04/30/22 10:11 Room Air 04/30/22 07:14 Room Air 04/30/22 07:32 04/30/22 07:21 Room Air 04/30/22 03:26 Room Air 04/29/22 22:30 Room Air 04/29/22 23:06 Laboratory Results 04/30/22 06:51 04/30/22 06:51 PG Care Time/CCT Total # of Minutes Spent Total Time Spent with Patient: Total time spent is greater than 50% in coordination of care (as documented) at patient's floor/unit and/or counseling patient: Coding Level of Care Code 54922 Subseq Hosp Care Lvl 3 Diagnoses Tremor of both hands R25.1 COVID-19 U07.1 Atrial fibrillation with RVR I48.91 Iron deficiency anemia D50.9 Barretts esophagus K22.70 Dyspnea on exertion R06.09 Generalized weakness R53.1 Rash R21 Hypertension I10 Dyslipidemia E78.5 Hypothyroidism E03.9 Constipation K59.00
[2022-04-30] MEDS: LOVASTATIN 20 MG TAB PO SCH (17:29)
[2022-04-30] MEDS: metroNIDAZOLE 0.75% TOPICAL GEL 45 GM TUBE TOP SCH (21:42)
[2022-04-30] MEDS: POLYETHYLENE (MIRALAX) 17 GM PACK PO SCH (21:45)
[2022-05-01] MEDS: LEVOTHYROXINE SODIUM 100 MCG TABLET PO SCH (06:21)
[2022-05-01] MEDS: AMIODARONE 200 MG TAB PO SCH ×2 (08:48→16:42)
[2022-05-01] MEDS: PANTOprazole 40 MG TAB PO SCH ×2 (08:48→20:23)
[2022-05-01] MEDS: PROPRANOLOL HCL 20 MG TAB PO SCH ×2 (08:48→20:23)
[2022-05-01] MEDS: dexAMETHasone 6 MG in SYRINGE 0 ML IV SCH (08:49)
[2022-05-01] MEDS: PRAMIPEXOLE DIHYDROCHLO 0.25 MG TAB PO SCH (08:49)
[2022-05-01] MEDS: DICLOFENAC SOD 1% GEL 100 GM TUBE EXT SCH ×2 (08:49→20:24)
[2022-05-01] MEDS: DOCUSATE SODIUM/SENNA 50/8.6MG TAB PO SCH (08:50)
[2022-05-01 09:10] LABS: Hematocrit (blood only) 34.4 % (40.1-51.0); Hemoglobin 9.9 g/dl (14.0-18.0); Mean Corpuscular Hemoglobin 23.1 pg (25.0-34.0); Mean Corpuscular Hgb Conc 28.8 g/dL (32.0-36.0); Mean Corpuscular Volume 80.2 fL (80.0-100.0); Mean Platelet Volume 8.5 fL (9.4-12.4); Platelet Count 278 K/uL (130-400); RDW Coefficient of Variation 23.6 % (11.5-14.5); RDW Standard Deviation 54.3 fL (36.4-46.3); Red Blood Count 4.29 M/uL (4.63-6.08); White Blood Count 7.41 K/ul (4.8-10.8)
[2022-05-01 09:23] LABS: Anisocytosis Present; Basophils # (auto) 0.03 K/uL (0-0.2); Basophils % (auto) 0.4 %; Eosinophils # (auto) 0.03 K/uL (0-0.50); Eosinophils % (auto) 0.4 %; Immature Granulocytes # (auto) 0.07 K/uL (0.00-0.02); Immature Granulocytes % (auto) 0.9 %; Lymphocytes # (auto) 1.05 K/uL (1.2-3.4); Lymphocytes % (auto) 14.2 %; Monocytes % (auto) 16.2 %; Neutrophils # (auto) 5.03 K/uL (1.4-6.5); Neutrophils % (auto) 67.9 %; Polychromasia 1+
[2022-05-01 09:43] LABS: Albumin Globulin Ratio 1.2 (0.9-2); Albumin Level 3.8 gm/dl (3.4-5.0); BUN Creatinine Ratio 22.8 (10-20); Bilirubin,Total 0.6 mg/dl (0.2-1.0); C Reactive Protein 4.18 mg/dl (0-0.5); Calcium 9.1 mg/dl (8.5-10.1); Creatinine Clr Calc Pharmacy 56.4 ml/min; Est GFR (Non-African American) 60.4 ml/min; Globulin 3.2 gm/dl (2.5-4.0); Magnesium 2.2 mg/dl (1.7-2.4); Potassium 4.4 mmol/L (3.5-5.1)
[2022-05-01] MEDS: REMDESIVIR 100 MG in SODIUM CHLORIDE 0.9% 230 ML IV SCH (11:48)
--- NOTE | 2022-05-01 13:53 | Hospitalist Progress Note ---
Date of Service May 01, 2022 Assessment & Plan (1) Tremor of both hands: Plan: 82 year old male w/ PMHx of subacute iron-deficiency anemia, HTN, HLD, hypothyroidism, and Jose's who presents w/ new onset intention tremors of bilateral upper and lower extremities, ambulatory dysfunction and generalized weakness . Neurology consulted Head CT negative MRI brain with and w/o con -- NEGATIVE Lyme testing/Anaplasmosis smear negative Babesiosis negative Ammonia wnl, denies etoh use. Does have varices but NO CIRRHOSIS, CT liver RPR --> negative Iron studies --> SEVERE deficiency, ferritin low at 4. --> replaced with IV Venofer x 3 doses -?RLS type picture-->Trial pramipexole, will continue TSH normal at 2.73 B12 borderline low in low 300s so possibly neuropathy contributing Amio can make tremors worse, but tremors present prior to starting this Recently started valsartan -Have been reports of small % patient with dystonic/myoclonic type reactions, moreso in combo sacubitril-valsartan than in valsartan alone, but still to be considered. Last dose 04/25 and should be out of system now With some reported generalized weakness on admission as well--> MG labs pending; CK only mildly elevated and returned to normal; aldolase mildly elevated but no real other signs of myositis Appreciate Neuro consult--> most likely Benign essential tremor--> Tremors improved since starting propranolol but still present-->titrated up to 40mg po bid-keep same dose for now f/u with Neuro in 3 weeks and may add primidone at that time -check heavy metal panel and ceruloplasmin in AM for toxicity and Andi's disease--> PENDING -continue f/u with Neuro after discharge -replace B12 with IM 1000 mcg daily x 2 doses then continue po dosing for borderline low B12 (in 300s) (2) COVID-19: Plan: Started having cough, nasal congestion, low grade fever overnight 04/29 after being in the hospital for 7 days Tested positive on 04/30 (initially negative on admission 04/22) Is fully vaxxed and boosted x 1, never had COVID previously POx 93%, high risk for severe disease given age and comorbidities -checked CXR-negative for PNA CRP mildly elevated at 4.18 Seems improved already after 1 day of treatment-i.e. less fatigue, no further fever -Continue Remdesevir x 5 day course-last day 05/04 -Continue dexamethasone 6mg daily-last dose 05/09--watch for worsening of tremor- tolerating so far -supplemental O2 as needed for POx< 90% -tylenol prn fever, sore throat -monitor for worsening -check CRP, CBC, CMP in AM -Continue isolation (3) Atrial fibrillation with RVR: Plan: Presented with new onset intention tremors over the past week, ambulatory dysfunction and generalized weakness. Was also seen in ER 04/21 for chest tightness and SOB Was in a sinus rhythm on admission Found to be in rapid atrial fibrillation the day after admission which caused hypotension and diaphoresis Was started on IV amiodarone and converted to sinus rhythm after short amount of time ECHO 04/24 w/ normal LV size/function, EF 60-65% with no wma TSH, FT3, F4 normal Amio gtt transitioned to PO BID now on propranolol for tremor as above which would also help with rates Cardiology following Nuclear stress negative for ischemia No anticoagulation given risk >benefit given varices and history of gastric erosions, with ongoing severe Fe deficiency anemia Can f/u GI to discuss endoscopic variceal ligation/banding keep K>4, mag >2 Continue to monitor on tele-no recurrence since 04/23 f/u with Cardio as outpt (4) Iron deficiency anemia: Plan: Worsening over the past year (although appears to have been going on at least over past year or two with low hgb values), workup started as outpatient, including fall 2020 egd (grade 3 upper third esophageal varices and gastric erosion) 10/2021 colonoscopy w/ polyps and non-bleeding hemorrhoids, 02/2022 negative capsule endoscopy. Microcytic. Severe iron deficiency-- not tolerated PO Fe in past due to constipation gave Venofer IV while inpatient. B12 borderline and started replacement. Folate wnl LDH not elevated, 124. Peripheral smear without significant finding Hgb stable and improved to 10 Outpatient GI follow up to consider banding varices as above Chest CT performed due to known upper esophageal varices and no chest masses or vascular anomalies noted Also though, could be celiac disease with malabsorption--> again, f/u with GI--> I do not see that biopsies for celiac were performed -Check celiac panel-PENDING (5) Barretts esophagus: Plan: Chronic, continue PPI. EGD last year w/ grade 3 esophageal varices. Discussed with barretts should be on max PPI therapy and increased protonix to BID (6) Dyspnea on exertion: Plan: - x3 months, reportedly was able to walk a mile daily with his up until earlier this year, currently only able to go about 2 blocks. distant tobacco use With reported chest tightness last week, no further CP currently but endorses SOB on exertion EKG w/ CP Venofer IV as above for anemia nuc stress negative here Now with new onset COVID (7) Generalized weakness: Plan: Multifactorial Iron deficiency anemia, possible viral mediated rash vs drug reaction vs other with elevated aldolase and mildly elevated CK as above but doubt myositis Venofer IV given PT/OT consulted-recommends rehab (8) Rash: Plan: unclear on timing given patient reported started however had seen d tigre previously end of the month for same, thought from mowing grass/chiggers ?drug induced from valsartan, would NOT continued this at d/c and BPs have been fine without it as well healing/improving (9) Hypertension: Plan: Chronic Was on valsartan (new as above, switched from lisinopril for dry cough but office with lower BPs and NOT CONTINUING) Now on propranolol (10) Dyslipidemia: Plan: Chronic, continue home lovastatin but placed on hold temporarily given slight elevation in CK but now normal -restarted statin (11) Hypothyroidism: Plan: Chronic, continue home levothyroxine. TSH wnl, F4/t3 -- WNL (12) Constipation: Plan: Chronic, continue home miralax qhs, added senna/docusate Has been having regular bowel movements Plan Dispo-discharge to SNF cancelled due to new onset COVID-19. He seems medically stable at this point and if there is a private room available at [facility] later this week, he could potentially be discharged to their with active COVID. Otherwise, will attempt to get to [facility] if insurance will approve as per case management. Otherwise, he would have to stay here for the 10 days of isolation prior to discharge Admission and Anticipated Discharge Date Admission Date: April 22, 2022 Subjective Patient feels better today, less fatigued and no more fever. Has a mild cough, denies shortness of breath but his thinks he was short of breath with exertion walking around the room today. No chest pains. No abdominal pains or nausea. He is not requiring oxygen. Tremor seems improved today in his hands, but was still wobbly on his legs when he stood up as per patient and his . Telemetry with normal sinus rhythm with rates in the 60s to 70s Review of Systems Review of Systems: All systems reviewed & are unremarkable except as noted in HPI & below Physical Exam Constitutional: WD/WN, vitals as above Eyes: + anicteric sclerae Neck: trachea midline, no thyromegaly Respiratory: normal respiratory effort, lungs clear to auscultation Cardiovascular: RRR, no murmur, no edema Chest (Breasts): Chest: normal inspection of chest Gastrointestinal (Abdomen): normal bowel sounds, soft, nontender, no hepatosplenomegaly Musculoskeletal: Extremities: extremities normal to inspection; no cyanosis and no clubbing Skin: + rash (healing small scabbed over lesions inner thighs) Neurologic: moves all extremities and awake; no focal motor deficits Motor/Sensory: + tremor (Much improved and very mild with outstretched arms) Has intention tremor in arms and legs with repositioning himself/sitting up in bed Psychiatric: A+Ox3, euthymic affect Lymphatic: no lymphedema Results & Data Results & Data ([facility]) Vital Signs (Past 12 Hours) Vital Signs Temp Pulse Pulse Pulse Resp BP BP 05/01/22 08:54 69 134/61 05/01/22 08:00 36.5 C 60 18 100/63 05/01/22 07:00 58 L 05/01/22 04:35 36.6 C 61 16 110/61 Pulse Ox O2 Del Method 05/01/22 08:54 05/01/22 08:00 05/01/22 07:00 05/01/22 04:35 95 Room Air Laboratory Results 05/01/22 05/01/22 Range/Units 08:43 08:43 WBC 7.41 (4.8-10.8) K/ul RBC 4.29 L (4.63-6.08) M/uL Hgb 9.9 L (14.0-18.0) g/dl Hct 34.4 L (40.1-51.0) % MCV 80.2 (80.0-100.0) fL MCH 23.1 L (25.0-34.0) pg MCHC 28.8 L (32.0-36.0) g/dL RDW Std Deviation 54.3 H (36.4-46.3) fL RDW Coeff of Razia 23.6 H (11.5-14.5) % Plt Count 278 (130-400) K/uL MPV 8.5 L (9.4-12.4) fL Immature Gran % (Auto) 0.9 % Neut % (Auto) 67.9 % Lymph % (Auto) 14.2 % [place] % (Auto) 16.2 % Eos % (Auto) 0.4 % Baso % (Auto) 0.4 % Neut # (Auto) 5.03 (1.4-6.5) K/uL Lymph # (Auto) 1.05 L (1.2-3.4) K/uL [place] # (Auto) 1.20 H (0.24-0.82) K/uL Eos # (Auto) 0.03 (0-0.50) K/uL Baso # (Auto) 0.03 (0-0.2) K/uL Immature Gran # (Auto) 0.07 H (0.00-0.02) K/uL Polychromasia 1+ Anisocytosis Present Sodium 139 (136-145) mmol/L Potassium 4.4 (3.5-5.1) mmol/L Chloride 106 (98-107) mmol/L Carbon Dioxide 27 (21-32) mmol/L Anion Gap 6 (3-11) BUN 26 H (6-23) mg/dl Creatinine 1.14 (0.6-1.4) mg/dl Est Cr Clr Drug Dosing 56.4 ml/min Est GFR ( Amer) 70.0 ml/min Est GFR (Non-Af Amer) 60.4 ml/min BUN/Creatinine Ratio 22.8 H (10-20) Glucose 88 (70-99(Fasting)) mg/dl Calcium 9.1 (8.5-10.1) mg/dl Magnesium 2.2 (1.7-2.4) mg/dl Total Bilirubin 0.6 D (0.2-1.0) mg/dl AST 18 (13-39) U/L ALT 16 (7-52) U/L Alkaline Phosphatase 71 (34-104) U/L C-Reactive Protein 4.18 H (0-0.5) mg/dl Total Protein 7.0 (6.0-8.3) gm/dl Albumin 3.8 (3.4-5.0) gm/dl Globulin 3.2 (2.5-4.0) gm/dl Albumin/Globulin Ratio 1.2 (0.9-2) PG Care Time/CCT Total # of Minutes Spent Total Time Spent with Patient: Total time spent is greater than 50% in coordination of care (as documented) at patient's floor/unit and/or counseling patient: Coding Level of Care Code 97551 Subseq Hosp Care Lvl 2 Diagnoses Tremor of both hands R25.1 COVID-19 U07.1 Atrial fibrillation with RVR I48.91 Iron deficiency anemia D50.9 Barretts esophagus K22.70 Dyspnea on exertion R06.09 Generalized weakness R53.1 Rash R21 Hypertension I10 Dyslipidemia E78.5 Hypothyroidism E03.9 Constipation K59.00
[2022-05-01] MEDS: LOVASTATIN 20 MG TAB PO SCH (17:00)
[2022-05-01] MEDS: metroNIDAZOLE 0.75% TOPICAL GEL 45 GM TUBE TOP SCH (20:24)
[2022-05-01] MEDS: POLYETHYLENE (MIRALAX) 17 GM PACK PO SCH (21:59)
[2022-05-02] MEDS: LEVOTHYROXINE SODIUM 100 MCG TABLET PO SCH (06:00)
[2022-05-02] MEDS: AMIODARONE 200 MG TAB PO SCH ×2 (08:12→16:36)
[2022-05-02] MEDS: DOCUSATE SODIUM/SENNA 50/8.6MG TAB PO SCH (08:17)
[2022-05-02] MEDS: PRAMIPEXOLE DIHYDROCHLO 0.25 MG TAB PO SCH (08:18)
[2022-05-02] MEDS: PANTOprazole 40 MG TAB PO SCH ×2 (08:20→21:25)
[2022-05-02] MEDS: PROPRANOLOL HCL 20 MG TAB PO SCH ×2 (08:21→21:29)
[2022-05-02] MEDS: dexAMETHasone 6 MG in SYRINGE 0 ML IV SCH (08:21)
[2022-05-02] MEDS: DICLOFENAC SOD 1% GEL 100 GM TUBE EXT SCH ×2 (08:21→21:31)
[2022-05-02 08:45] LABS: Basophils # (auto) 0.04 K/uL (0-0.2); Basophils % (auto) 0.5 %; Eosinophils # (auto) 0.02 K/uL (0-0.50); Eosinophils % (auto) 0.3 %; Hematocrit (blood only) 34.1 % (40.1-51.0); Immature Granulocytes # (auto) 0.07 K/uL (0.00-0.02); Immature Granulocytes % (auto) 0.9 %; Lymphocytes # (auto) 1.54 K/uL (1.2-3.4); Lymphocytes % (auto) 20.6 %; Mean Corpuscular Hemoglobin 23.1 pg (25.0-34.0); Mean Corpuscular Hgb Conc 29.3 g/dL (32.0-36.0); Mean Corpuscular Volume 78.8 fL (80.0-100.0); Mean Platelet Volume 9.2 fL (9.4-12.4); Monocytes # (auto) 1.12 K/uL (0.24-0.82); Neutrophils % (auto) 62.7 %; Platelet Count 290 K/uL (130-400); RDW Standard Deviation 54.1 fL (36.4-46.3); Red Blood Count 4.33 M/uL (4.63-6.08); White Blood Count 7.49 K/ul (4.8-10.8)
[2022-05-02 09:11] LABS: Albumin Globulin Ratio 1.2 (0.9-2); Albumin Level 3.6 gm/dl (3.4-5.0); Bilirubin,Total 0.5 mg/dl (0.2-1.0); C Reactive Protein 2.15 mg/dl (0-0.5); Creatinine Clr Calc Pharmacy 56.8 ml/min; Est GFR (African American) 70.8 ml/min; Est GFR (Non-African American) 61.1 ml/min; Globulin 3.1 gm/dl (2.5-4.0); Magnesium 2.2 mg/dl (1.7-2.4); Total Protein 6.7 gm/dl (6.0-8.3)
[2022-05-02 09:34] LABS: Anisocytosis Present; Polychromasia 1+
[2022-05-02] MEDS: CYANOCOBALAMIN (B-12) 500 MCG TABLET PO SCH (11:05)
[2022-05-02] MEDS: REMDESIVIR 100 MG in SODIUM CHLORIDE 0.9% 230 ML IV SCH (11:17)
[2022-05-02] MEDS: LOVASTATIN 20 MG TAB PO SCH (17:04)
[2022-05-02] MEDS ORDERED: IPRATROPIUM BROMIDE HFA INHALER INH SCH (19:00)
[2022-05-02] MEDS ORDERED: ALBUTEROL HFA 8 GM INHALER INH SCH (19:00)
--- NOTE | 2022-05-02 20:12 | Hospitalist Progress Note ---
Date of Service May 02, 2022 Assessment & Plan (1) Tremor of both hands: Plan: Improved Work-up done while here: Head CT negative MRI brain with and w/o con NEGATIVE for acute or chronic pathology Lyme testing/Anaplasmosis smear negative Babesiosis negative Ammonia wnl, denies etoh use. Does have varices but NO CIRRHOSIS, CT liver RPR negative TSH wnl CK only mildly elevated and returned to normal; aldolase mildly elevated but no real other signs of myositis Iron studies c/w SEVERE deficiency (ferritin 4) s/p Venofer x 3 doses ?RLS type picture contributing to tremors?? - pramipexole daily initiated and will continue B12 borderline low in low 300s so possibly neuropathy contributing; continue B12 replacmeent Seeny by [facility] Neurology - Benign essential tremor suspected Tremors improved since starting propranolol - titrated to 40mg po bid f/u with Neuro in 3 weeks and may add primidone at that time Pending labs at this time - * heavy metal panel * ceruloplasmin * myasthenia gravis panel (2) COVID-19: Plan: Initial symptoms 04/29 and tested positive on 04/30 Fully vaxed and boosted x 1, never had COVID previously O2-sats have been low-normal thus Dexamethasone/Remdesivir started while here Continue Remdesevir x 5 day course - last day 05/04 Continue dexamethasone 6mg daily- last dose 05/09 Labs today acceptable O2 sats remain very stable (3) Atrial fibrillation with RVR: Plan: Developed rapid atrial fibrillation the day after admission which caused hypotension and diaphoresis Was started on IV amiodarone and converted to sinus rhythm with such ECHO 04/24 w/ normal LV size/function, EF 60-65% with no wma TSH, FT3, F4 normal Nuclear stress negative for ischemia No anticoagulation given risk >benefit given varices and history of gastric erosions, with ongoing severe Fe deficiency anemia Remains on amiodarone 200mg BID for rhythm control Remains in NSR with such Remains on inderal BID (4) Iron deficiency anemia: Plan: Severe. s/p IV venofer x 3 doses earlier in the admission. Repeat Fe studies tomorrow am to determine if additional doses are needed. H/H remain stable. Fall 2020 - EGD with grade 3 upper third esophageal varices and gastric erosion 10/2021 colonoscopy w/ polyps and non-bleeding hemorrhoids 02/2022 negative capsule endoscopy Celiac panel 04/30/22 negative. Outpatient GI follow up to consider banding his esophageal varices (5) Barretts esophagus: Plan: Chronic continue PPI twice daily (6) Dyspnea on exertion: Plan: nuclear stress test negative this admission 04/26/[address] with "emphysema" after recovery from COVID advise pulmonary f/u as outpatient with PFTs for definitive dx (7) Generalized weakness: Plan: Multifactorial Iron deficiency anemia COVID-19 infection etc rehab post-d/c (8) Rash: Plan: had seen dermatology recently as outpatient thought from mowing grass/chiggers ?drug induced from valsartan, would NOT continued this at d/c and BPs have been fine without it as well rash improved (9) Hypertension: Plan: cont propranolol ARB has been d/c out of abundance of caution that it could have been contributing to tremors, rash, etc (10) Dyslipidemia: Plan: cont statin (11) Hypothyroidism: Plan: Chronic, continue home levothyroxine. TFTs normal (12) Constipation: Plan: cont bowel maintenance Plan [facility] post-d/c for rehab date of d/c depends on bed availability and COVID restrictions updated by phone this evening Admission and Anticipated Discharge Date Admission Date: April 22, 2022 Subjective no major issues overnight feeling "pretty good" eating is better mild cough but denies dyspnea he feels tremors are indeed improved from admission no fevers Review of Systems Review of Systems: gen - no chills cv - no orthopnea pulm - denies h/o asthma or COPD musculo - denies myalgias neuro - denies current headache Physical Exam Physical Exam: gen - eating his meal, looks good neuro - mild tremors of arms HENT - MMM, no lesions neck - no JVD heart - RRR, s1 s2 lungs - mild end-exp wheezes all lung segments b/l, no increased work of breathing abd - soft NT ND BS+ ext - no edema, pulses 2+ b/l Results & Data Results & Data ([facility]) Vital Signs (Past 12 Hours) Vital Signs Temp Pulse Pulse Resp BP Pulse Ox O2 Del Method 05/02/22 19:49 36.9 C 71 18 122/72 95 Room Air 05/02/22 17:12 64 05/02/22 15:24 36.6 C 69 18 143/63 H 98 Room Air 05/02/22 11:22 36.7 C 64 19 115/63 96 Room Air Laboratory Results Laboratory Results - last 24 hr 05/02/22 05/02/22 07:54 07:54 WBC 7.49 RBC 4.33 L Hgb 10.0 L Hct 34.1 L MCV 78.8 L MCH 23.1 L MCHC 29.3 L RDW Std Deviation 54.1 H RDW Coeff of Razia 24.0 H Plt Count 290 MPV 9.2 L Immature Gran % (Auto) 0.9 Neut % (Auto) 62.7 Lymph % (Auto) 20.6 [place] % (Auto) 15.0 Eos % (Auto) 0.3 Baso % (Auto) 0.5 Neut # (Auto) 4.70 Lymph # (Auto) 1.54 [place] # (Auto) 1.12 H Eos # (Auto) 0.02 Baso # (Auto) 0.04 Immature Gran # (Auto) 0.07 H Polychromasia 1+ Anisocytosis Present Sodium 138 Potassium 5.0 Chloride 105 Carbon Dioxide 27 Anion Gap 6 BUN 35 H Creatinine 1.13 Est Cr Clr Drug Dosing 56.8 Est GFR ( Amer) 70.8 Est GFR (Non-Af Amer) 61.1 BUN/Creatinine Ratio 31.0 H Glucose 87 Calcium 9.0 Magnesium 2.2 Total Bilirubin 0.5 AST 19 ALT 18 Alkaline Phosphatase 65 C-Reactive Protein 2.15 H Total Protein 6.7 Albumin 3.6 Globulin 3.1 Albumin/Globulin Ratio 1.2 PG Care Time/CCT Total # of Minutes Spent Total Time Spent with Patient: Total time spent is greater than 50% in coordination of care (as documented) at patient's floor/unit and/or counseling patient: Coding Level of Care Code 18707 Subseq Hosp Care Lvl 2 Diagnoses Tremor of both hands R25.1 COVID-19 U07.1 Atrial fibrillation with RVR I48.91 Iron deficiency anemia D50.9 Barretts esophagus K22.70 Dyspnea on exertion R06.09 Generalized weakness R53.1 Rash R21 Hypertension I10 Dyslipidemia E78.5 Hypothyroidism E03.9 Constipation K59.00
[2022-05-02] MEDS ORDERED: IPRATROPIUM BROMIDE/ALBUTEROL respimat INH INH SCH (21:00)
[2022-05-02] MEDS: POLYETHYLENE (MIRALAX) 17 GM PACK PO SCH (21:25)
[2022-05-02] MEDS: guaiFENesin 600 MG TABCR PO SCH (21:25)
[2022-05-02] MEDS: metroNIDAZOLE 0.75% TOPICAL GEL 45 GM TUBE TOP SCH (21:31)
[2022-05-03 01:52] LABS: IgA Serum 249 mg/dL (70-320); Tis Trans IgA <1.0 U/mL
[2022-05-03] MEDS: LEVOTHYROXINE SODIUM 100 MCG TABLET PO SCH (06:24)
[2022-05-03 07:56] LABS: Ferritin 312.2 ng/ml (8-388)
[2022-05-03 08:16] LABS: BUN Creatinine Ratio 31.3 (10-20); Calcium 9.1 mg/dl (8.5-10.1); Creatinine Clr Calc Pharmacy 57.3 ml/min; Est GFR (African American) 71.5 ml/min; Est GFR (Non-African American) 61.7 ml/min; Potassium 3.8 mmol/L (3.5-5.1)
[2022-05-03] MEDS: AMIODARONE 200 MG TAB PO SCH ×2 (08:18→17:09)
[2022-05-03] MEDS: CYANOCOBALAMIN (B-12) 500 MCG TABLET PO SCH (08:18)
[2022-05-03] MEDS: DICLOFENAC SOD 1% GEL 100 GM TUBE EXT SCH ×2 (08:19→21:27)
[2022-05-03] MEDS: DOCUSATE SODIUM/SENNA 50/8.6MG TAB PO SCH (08:20)
[2022-05-03] MEDS: guaiFENesin 600 MG TABCR PO SCH ×2 (08:20→21:29)
[2022-05-03] MEDS: PANTOprazole 40 MG TAB PO SCH ×2 (08:21→21:28)
[2022-05-03] MEDS: PRAMIPEXOLE DIHYDROCHLO 0.25 MG TAB PO SCH (08:22)
[2022-05-03] MEDS: PROPRANOLOL HCL 20 MG TAB PO SCH ×2 (08:24→21:29)
[2022-05-03] MEDS: dexAMETHasone 6 MG in SYRINGE 0 ML IV SCH (09:27)
[2022-05-03] MEDS: REMDESIVIR 100 MG in SODIUM CHLORIDE 0.9% 230 ML IV SCH (12:07)
[2022-05-03] MEDS: LOVASTATIN 20 MG TAB PO SCH (17:16)
[2022-05-03 19:06] LABS: Arsenic Blood <3 mcg/L (<23); Ceruloplasmin 34 mg/dL (18-36); Lead Blood <1.0 mcg/dL (<3.5); Mercury, blood <4 mcg/L (<=10)
[2022-05-03] MEDS: metroNIDAZOLE 0.75% TOPICAL GEL 45 GM TUBE TOP SCH (21:27)
[2022-05-03] MEDS: POLYETHYLENE (MIRALAX) 17 GM PACK PO SCH (21:27)
[2022-05-03] MEDS: PRIMIDONE 50 MG TAB PO SCH (21:30)
--- NOTE | 2022-05-03 22:28 | Hospitalist Progress Note ---
Date of Service May 03, 2022 Assessment & Plan (1) Tremor of both hands: Plan: Improved but still prominent PT notes indicate that the tremors even interfere with his PT session Work-up done while here: Head CT negative MRI brain with and w/o con NEGATIVE for acute or chronic pathology Lyme testing/Anaplasmosis smear negative Babesiosis negative Ammonia wnl, denies etoh use. Does have varices but NO CIRRHOSIS, CT liver RPR negative TSH wnl CK only mildly elevated and returned to normal; aldolase mildly elevated but no real other signs of myositis Heavy metal screen returned negative Ceruloplasmin negative/normal Iron studies c/w SEVERE deficiency (ferritin 4) s/p Venofer x 3 doses ?RLS type picture contributing to tremors?? - pramipexole daily initiated but it hasn't seemed to help him clinically; and he denies RLS/PLMD symptoms B12 borderline low in low 300s so possibly neuropathy contributing; continue B12 replaceent Seeny by [facility] Neurology - Benign essential tremor suspected Tremors improved since starting propranolol - titrated to 40mg po bid - but still with severe tremors Will start primidone 25mg HS Does have interaction with amiodarone via CYP system, but the interaction is that it might decrease the effectiveness of amiodarone (not prolong the QTC) I think benefits of primidone outweigh risks myasthenia gravis panel sent/pending to be complete (2) COVID-19: Plan: Initial symptoms 04/29 and tested positive on 04/30 Fully vaxed and boosted x 1, never had COVID previously IMPROVED O2-sats have been low-normal thus Dexamethasone/Remdesivir started while here Continue Remdesevir x 5 day course - last day 05/04 Continue dexamethasone 6mg daily- last dose 05/09 (3) Atrial fibrillation with RVR: Plan: Developed rapid atrial fibrillation the day after admission which caused hypotension and diaphoresis Was started on IV amiodarone and converted to sinus rhythm with such ECHO 04/24 w/ normal LV size/function, EF 60-65% with no wma TSH, FT3, F4 normal Nuclear stress negative for ischemia No anticoagulation given risk >benefit given varices and history of gastric erosions, with ongoing severe Fe deficiency anemia Remains on amiodarone 200mg BID for rhythm control Remains in NSR with such Remains on inderal BID (4) Iron deficiency anemia: Plan: Severe. s/p IV venofer x 3 doses earlier in the admission. Repeat Fe studies tomorrow am to determine if additional doses are needed. H/H remain stable. Fall 2020 - EGD with grade 3 upper third esophageal varices and gastric erosion 10/2021 colonoscopy w/ polyps and non-bleeding hemorrhoids 02/2022 negative capsule endoscopy Celiac panel 04/30/22 negative. Outpatient GI follow up to consider banding his esophageal varices (5) Barretts esophagus: Plan: Chronic continue PPI twice daily (6) Dyspnea on exertion: Plan: nuclear stress test negative this admission 04/26/[address] with "emphysema" after recovery from COVID advise pulmonary f/u as outpatient with PFTs for definitive dx (7) Generalized weakness: Plan: Multifactorial Iron deficiency anemia COVID-19 infection etc rehab post-d/c (8) Rash: Plan: had seen dermatology recently as outpatient thought from mowing grass/chiggers ?drug induced from valsartan, would NOT continued this at d/c and BPs have been fine without it as well rash improved (9) Hypertension: Plan: cont propranolol ARB has been d/c out of abundance of caution that it could have been contributing to tremors, rash, etc (10) Dyslipidemia: Plan: cont statin (11) Hypothyroidism: Plan: Chronic, continue home levothyroxine. TFTs normal (12) Constipation: Plan: cont bowel maintenance Plan rehab needed but bed availability at facilities is tight date of d/c depends on bed availability and COVID restrictions updated by phone yesterday night Admission and Anticipated Discharge Date Admission Date: April 22, 2022 Subjective was on his computer during the visit feeling much better appetite ok energy ok although he is generally weak tremors remain - improved from admission - but still prominent mild cough - minimal sputum no dyspnea or MARQUEZ he is still hopeful for finding a rehab post-discharge Review of Systems Review of Systems: gen - no fevers or chills cv - no cp, no orthopnea; tele overnight - NSR, no PAF pulm - no MARQUEZ GI - no N/V/D or pain Physical Exam Physical Exam: gen - looks good again today, mild cough at times neuro - mild tremors of arms HENT - MMM, no lesions neck - no JVD heart - RRR, s1 s2, no murmur lungs - no wheezes today; good airation, scant scattered rales abd - soft NT ND BS+ ext - no edema, pulses 2+ b/l psych - a/o x 3 Results & Data Results & Data ([facility]) Vital Signs (Past 12 Hours) Vital Signs Temp Pulse Pulse Pulse Resp BP Pulse Ox 05/03/22 20:16 36.8 C 58 L 17 127/76 95 05/03/22 17:05 68 120/58 L 05/03/22 15:48 36.6 C 63 20 131/56 L 97 05/03/22 14:53 70 05/03/22 11:39 36.6 C 62 19 144/70 H 98 O2 Del Method 05/03/22 20:16 Room Air 05/03/22 17:05 05/03/22 15:48 Room Air 05/03/22 14:53 05/03/22 11:39 Room Air Laboratory Results Laboratory Results - last 24 hr 04/30/22 04/30/22 05/03/22 06:51 06:51 06:13 Sodium 139 Potassium 3.8 D Chloride 103 Carbon Dioxide 25 Anion Gap 11 BUN 35 H Creatinine 1.12 Est Cr Clr Drug Dosing 57.3 Est GFR ( Amer) 71.5 Est GFR (Non-Af Amer) 61.7 BUN/Creatinine Ratio 31.3 H Glucose 87 Calcium 9.1 Iron 171 TIBC 343 Unsaturated IBC 172 Transferrin % Sat 50 Ferritin 312.2 Ceruloplasmin 34 Arsenic <3 Lead <1.0 Mercury <4 IgA 249 Tiss Transglutamin IgA <1.0 Celiac Disease Interp SEE NOTE PG Care Time/CCT Total # of Minutes Spent Total Time Spent with Patient: Total time spent is greater than 50% in coordination of care (as documented) at patient's floor/unit and/or counseling patient: Coding Level of Care Code 60197 Subseq Hosp Care Lvl 2 Diagnoses Tremor of both hands R25.1 COVID-19 U07.1 Atrial fibrillation with RVR I48.91 Iron deficiency anemia D50.9 Barretts esophagus K22.70 Dyspnea on exertion R06.09 Generalized weakness R53.1 Rash R21 Hypertension I10 Dyslipidemia E78.5 Hypothyroidism E03.9 Constipation K59.00
[2022-05-04] MEDS: LEVOTHYROXINE SODIUM 100 MCG TABLET PO SCH (07:21)
[2022-05-04] MEDS: dexAMETHasone 6 MG in SYRINGE 0 ML IV SCH (07:25)
[2022-05-04] MEDS: DICLOFENAC SOD 1% GEL 100 GM TUBE EXT SCH ×2 (07:27→20:34)
[2022-05-04] MEDS: DOCUSATE SODIUM/SENNA 50/8.6MG TAB PO SCH (07:27)
[2022-05-04] MEDS: CYANOCOBALAMIN (B-12) 500 MCG TABLET PO SCH (07:27)
[2022-05-04] MEDS: PANTOprazole 40 MG TAB PO SCH ×2 (07:27→20:36)
[2022-05-04] MEDS: PROPRANOLOL HCL 20 MG TAB PO SCH ×2 (07:27→20:36)
[2022-05-04] MEDS: guaiFENesin 600 MG TABCR PO SCH ×2 (07:27→20:36)
[2022-05-04] MEDS: AMIODARONE 200 MG TAB PO SCH ×2 (07:27→18:07)
[2022-05-04 07:58] LABS: Creatinine Clr Calc Pharmacy 60.6 ml/min; Est GFR (African American) 77.3 ml/min; Est GFR (Non-African American) 66.7 ml/min
[2022-05-04] MEDS: REMDESIVIR 100 MG in SODIUM CHLORIDE 0.9% 230 ML IV SCH (12:27)
[2022-05-04] MEDS: LOVASTATIN 20 MG TAB PO SCH (18:07)
--- NOTE | 2022-05-04 20:29 | Hospitalist Progress Note ---
Date of Service May 04, 2022 Assessment & Plan (1) Tremor of both hands: Plan: Improved but still prominent and problematic to the patient PT notes indicate that the tremors even interfere with his PT session Work-up done while here: Head CT negative MRI brain with and w/o con NEGATIVE for acute or chronic pathology Lyme testing/Anaplasmosis smear negative Babesiosis negative Ammonia wnl, denies etoh use. Does have varices but NO CIRRHOSIS, CT liver RPR negative TSH wnl CK only mildly elevated and returned to normal; aldolase mildly elevated but no real other signs of myositis Heavy metal screen returned negative Ceruloplasmin negative/normal Iron studies c/w SEVERE deficiency (ferritin 4) s/p Venofer x 3 doses ?RLS type picture contributing to tremors?? - pramipexole daily initiated but it had't helped him clinically; and he denied RLS/PLMD symptoms -- thus, pramipexole stopped B12 borderline low in low 300s so possibly neuropathy contributing; continue B12 replacement with 500mcg daily [place] [facility] [place] - Benign essential tremor suspected Tremors improved since starting propranolol - titrated to 40mg po bid - but still with severe tremors Started primidone 25mg HS 05/03/22 Tolerated such Increase to BID dosing tomorrow Primidone does have interaction with amiodarone via CYP system, but the interaction is that it might decrease the effectiveness of amiodarone (not prolong the QTC) I think benefits of primidone outweigh risks myasthenia gravis panel sent/pending to be complete Will need [facility] [place] f/u post-discharge (2) COVID-19: Plan: Initial symptoms 04/29 and tested positive on 04/30 Fully vaxed and boosted x 1, never had COVID previously IMPROVED / resolving O2-sats have been low-normal thus Dexamethasone/Remdesivir started while here Continue Remdesevir x 5 day course - last dose today Continue dexamethasone 6mg daily- last dose 05/09; convert to PO in am tomorrow (3) Atrial fibrillation with RVR: Plan: Developed rapid atrial fibrillation the day after admission which caused hypotension and diaphoresis Was started on IV amiodarone and converted to sinus rhythm with such ECHO 04/24 w/ normal LV size/function, EF 60-65% with no wma TSH, FT3, F4 normal Nuclear stress negative for ischemia No anticoagulation given risk >benefit given varices and history of gastric erosions, with ongoing severe Fe deficiency anemia Remains on amiodarone 200mg BID for rhythm control Remains in NSR with such Remains on inderal BID (4) Iron deficiency anemia: Plan: Severe. s/p IV venofer x 3 doses earlier in the admission. Repeat Fe studies tomorrow am to determine if additional doses are needed. H/H remain stable. Fall 2020 - EGD with grade 3 upper third esophageal varices and gastric erosion 10/2021 colonoscopy w/ polyps and non-bleeding hemorrhoids 02/2022 negative capsule endoscopy Celiac panel 04/30/22 negative. Outpatient GI follow up to consider banding his esophageal varices (5) Barretts esophagus: Plan: Chronic continue PPI twice daily (6) Dyspnea on exertion: Plan: nuclear stress test negative this admission 04/26/[address] with "emphysema" after recovery from COVID advise pulmonary f/u as outpatient with PFTs for definitive dx I discussed this with him today he was a smoker - heavy - until 1998 (7) Generalized weakness: Plan: Multifactorial Iron deficiency anemia COVID-19 infection Deconditioning etc rehab post-d/c very much needed (8) Rash: Plan: had seen dermatology recently as outpatient thought from mowing grass/chiggers ?drug induced from valsartan, would NOT continued this at d/c and BPs have been fine without it as well rash improved / resolved (9) Hypertension: Plan: cont propranolol ARB has been d/c out of abundance of caution that it could have been contributing to tremors, rash, etc (10) Dyslipidemia: Plan: cont statin (11) Hypothyroidism: Plan: Chronic, continue home levothyroxine. TFTs normal (12) Constipation: Plan: cont bowel maintenance Plan rehab needed but bed availability at facilities is tight date of d/c depends on bed availability and COVID restrictions [facility] ?? updated by phone this evening Admission and Anticipated Discharge Date Admission Date: April 22, 2022 Subjective pt without any complaints minimal cough sputum production nearly resolved no dyspnea visited today - he walked around the room with her -- ambulation is modestly better tremors about the same as yesterday eating well tele overnight - no PAF Review of Systems Review of Systems: gen - no fevers or chills cv - no chest pain pulm - no dyspnea or [facility] GI - no diarrhea or vomiting neuro - no headaches Physical Exam Physical Exam: gen - looks good again today, mild cough at times, NAD neuro - mild tremors of arm - about the same as yesterday HENT - MMM, no lesions neck - no JVD heart - RRR, s1 s2, no murmur lungs - no wheezes today; good airation, no rales today abd - soft NT ND BS+ ext - no edema, pulses 2+ b/l psych - a/o x 3 Results & Data Results & Data ([facility]) Vital Signs (Past 12 Hours) Vital Signs Temp Pulse Pulse Resp BP Pulse Ox O2 Del Method 05/04/22 19:05 36.8 C 58 L 18 130/68 96 Room Air 05/04/22 15:29 36.7 C 65 18 119/67 98 Room Air 05/04/22 14:48 57 L 05/04/22 11:10 36.7 C 59 L 18 123/64 97 Room Air Laboratory Results Laboratory Results - last 24 hr 05/04/22 07:14 Creatinine 1.05 Est Cr Clr Drug Dosing 60.6 Est GFR ( Amer) 77.3 Est GFR (Non-Af Amer) 66.7 PG Care Time/CCT Total # of Minutes Spent Total Time Spent with Patient: Total time spent is greater than 50% in coordination of care (as documented) at patient's floor/unit and/or counseling patient: Coding Level of Care Code 09259 Subseq Hosp Care Lvl 2 Diagnoses Tremor of both hands R25.1 COVID-19 U07.1 Atrial fibrillation with RVR I48.91 Iron deficiency anemia D50.9 Barretts esophagus K22.70 Dyspnea on exertion R06.09 Generalized weakness R53.1 Rash R21 Hypertension I10 Dyslipidemia E78.5 Hypothyroidism E03.9 Constipation K59.00
[2022-05-04] MEDS: POLYETHYLENE (MIRALAX) 17 GM PACK PO SCH (20:33)
[2022-05-04] MEDS: PRIMIDONE 50 MG TAB PO SCH (20:36)
[2022-05-04] MEDS: metroNIDAZOLE 0.75% TOPICAL GEL 45 GM TUBE TOP SCH (20:36)
[2022-05-05] MEDS: LEVOTHYROXINE SODIUM 100 MCG TABLET PO SCH (06:03)
[2022-05-05 06:48] LABS: Hematocrit (blood only) 36.4 % (40.1-51.0); Hemoglobin 10.8 g/dl (14.0-18.0)
[2022-05-05 07:22] LABS: BUN Creatinine Ratio 32.1 (10-20); Calcium 8.8 mg/dl (8.5-10.1); Creatinine Clr Calc Pharmacy 56.8 ml/min; Est GFR (African American) 71.5 ml/min; Est GFR (Non-African American) 61.7 ml/min; Potassium 4.2 mmol/L (3.5-5.1)
[2022-05-05] MEDS: DICLOFENAC SOD 1% GEL 100 GM TUBE EXT SCH ×2 (08:03→20:36)
[2022-05-05] MEDS: dexAMETHasone 1 MG TAB PO SCH (08:04)
[2022-05-05] MEDS: guaiFENesin 600 MG TABCR PO SCH ×2 (08:04→20:36)
[2022-05-05] MEDS: PROPRANOLOL HCL 20 MG TAB PO SCH ×3 (08:05→21:30)
[2022-05-05] MEDS: PANTOprazole 40 MG TAB PO SCH ×2 (08:05→20:37)
[2022-05-05] MEDS: AMIODARONE 200 MG TAB PO SCH ×2 (08:06→16:41)
[2022-05-05] MEDS: CYANOCOBALAMIN (B-12) 500 MCG TABLET PO SCH (08:06)
[2022-05-05] MEDS: PRIMIDONE 50 MG TAB PO SCH ×2 (08:07→20:38)
[2022-05-05] MEDS: DOCUSATE SODIUM/SENNA 50/8.6MG TAB PO SCH (08:07)
[2022-05-05] MEDS: LOVASTATIN 20 MG TAB PO SCH (16:42)
[2022-05-05] MEDS: POLYETHYLENE (MIRALAX) 17 GM PACK PO SCH (21:28)
--- NOTE | 2022-05-05 21:41 | Hospitalist Progress Note ---
Date of Service May 05, 2022 Assessment & Plan (1) Tremor of both hands: Plan: Improved but still prominent and problematic to the patient PT notes indicate that the tremors even interfere with his PT session Work-up done while here: Head CT negative MRI brain with and w/o con NEGATIVE for acute or chronic pathology Lyme testing/Anaplasmosis smear negative Babesiosis negative Ammonia wnl, denies etoh use. Does have varices but NO CIRRHOSIS, CT liver RPR negative TSH wnl CK only mildly elevated and returned to normal; aldolase mildly elevated but no real other signs of myositis Heavy metal screen returned negative Ceruloplasmin negative/normal Iron studies c/w SEVERE deficiency (ferritin 4) s/p Venofer x 3 doses ?RLS type picture contributing to tremors?? - pramipexole daily initiated but it had't helped him clinically; and he denied RLS/PLMD symptoms -- thus, pramipexole stopped B12 borderline low in low 300s so possibly neuropathy contributing; continue B12 replacement with 500mcg daily Seeny by [facility] [place] Neurology - Benign essential tremor suspected Tremors improved since starting propranolol - titrated to 40mg po bid - but still with severe tremors Started primidone 25mg HS 05/03/22 Tolerated such Increase to BID dosing today Primidone does have interaction with amiodarone via CYP system, but the interaction is that it might decrease the effectiveness of amiodarone (not prolong the QTC) I think benefits of primidone outweigh risks myasthenia gravis panel sent/pending to be complete Will need [facility] [place] neurology f/u post-discharge (2) COVID-19: Plan: Initial symptoms 04/29 and tested positive on 04/30 Fully vaxed and boosted x 1, never had COVID previously IMPROVED / resolving O2-sats have been low-normal thus Dexamethasone/Remdesivir started while here Completed 5-day course of Remdesevir Continue dexamethasone 6mg daily- last dose 05/09 (3) Atrial fibrillation with RVR: Plan: Developed rapid atrial fibrillation the day after admission which caused hypotension and diaphoresis Was started on IV amiodarone and converted to sinus rhythm with such ECHO 04/24 w/ normal LV size/function, EF 60-65% with no wma TSH, FT3, F4 normal Nuclear stress negative for ischemia No anticoagulation given risk >benefit given varices and history of gastric erosions, with ongoing severe Fe deficiency anemia Remains on amiodarone 200mg BID for rhythm control Remains in NSR with such Remains on inderal BID - lower dose to 20mg BID due to bradycardia (4) Iron deficiency anemia: Plan: Severe. s/p IV venofer x 3 doses earlier in the admission. Repeat Fe studies tomorrow am to determine if additional doses are needed. H/H remain stable. Fall 2020 - EGD with grade 3 upper third esophageal varices and gastric erosion 10/2021 colonoscopy w/ polyps and non-bleeding hemorrhoids 02/2022 negative capsule endoscopy Celiac panel 04/30/22 negative. Outpatient GI follow up to consider banding his esophageal varices (5) Barretts esophagus: Plan: Chronic continue PPI twice daily (6) Dyspnea on exertion: Plan: nuclear stress test negative this admission 04/26/[address] with "emphysema" after recovery from COVID advise pulmonary f/u as outpatient with PFTs for definitive dx I discussed this with him yesterday he was a smoker - heavy - until 1998 (7) Generalized weakness: Plan: Multifactorial Iron deficiency anemia COVID-19 infection Deconditioning etc initially thinking he needed rehab, but he is getting stronger will ask PT to eval him in the am - if he is doing much better - home with home PT/OT? will wait for PT eval (8) Rash: Plan: had seen dermatology recently as outpatient thought from mowing grass/chiggers ?drug induced from valsartan, would NOT continued this at d/c and BPs have been fine without it as well rash improved / resolved (9) Hypertension: Plan: cont propranolol but reduce dose to 20mg BID ARB has been d/c out of abundance of caution that it could have been contributing to tremors, rash, etc (10) Dyslipidemia: Plan: cont statin (11) Hypothyroidism: Plan: Chronic, continue home levothyroxine. TFTs normal (12) Constipation: Plan: cont bowel maintenance Plan updated by phone yesterday pt re-eval needed Admission and Anticipated Discharge Date Admission Date: April 22, 2022 Subjective this am's inderal was held due to bradycardia otherwise patient is well feeling good minimal cough eating well ambulating with assistance came for a visit today tremors better tele - sinus nataliya Review of Systems Review of Systems: gen - no fevers cv - no cp, no orthopnea pulm - no dyspnea GI - no N/V/D/pain Physical Exam Physical Exam: gen - NAD neuro - mild tremors of arm - much improved from yesterday HENT - MMM, no lesions neck - no JVD heart - RRR, s1 s2, no murmur lungs - CTA b/l abd - soft NT ND BS+ ext - no edema, pulses 2+ b/l psych - a/o x 3 Results & Data Results & Data ([facility]) Vital Signs (Past 12 Hours) Vital Signs Temp Pulse Pulse Pulse Resp BP Pulse Ox 05/05/22 21:20 53 L 123/58 L 95 05/05/22 19:04 37.0 C 55 L 16 115/58 L 96 05/05/22 16:42 36.6 C 55 L 18 122/56 L 99 05/05/22 16:27 52 L 05/05/22 11:50 36.9 C 56 L 17 111/57 L 98 O2 Del Method 05/05/22 21:20 Room Air 05/05/22 19:04 Room Air 05/05/22 16:42 Room Air 05/05/22 16:27 05/05/22 11:50 Room Air Laboratory Results Laboratory Results - last 24 hr 05/05/22 05/05/22 05:56 05:56 Hgb 10.8 L Hct 36.4 L Sodium 134 L Potassium 4.2 Chloride 101 Carbon Dioxide 25 Anion Gap 8 BUN 36 H Creatinine 1.12 Est Cr Clr Drug Dosing 56.8 Est GFR ( Amer) 71.5 Est GFR (Non-Af Amer) 61.7 BUN/Creatinine Ratio 32.1 H Glucose 92 Calcium 8.8 PG Care Time/CCT Total # of Minutes Spent Total Time Spent with Patient: Total time spent is greater than 50% in coordination of care (as documented) at patient's floor/unit and/or counseling patient: Coding Level of Care Code 20845 Subseq Hosp Care Lvl 2 Diagnoses Tremor of both hands R25.1 COVID-19 U07.1 Atrial fibrillation with RVR I48.91 Iron deficiency anemia D50.9 Barretts esophagus K22.70 Dyspnea on exertion R06.09 Generalized weakness R53.1 Rash R21 Hypertension I10 Dyslipidemia E78.5 Hypothyroidism E03.9 Constipation K59.00
[2022-05-06] MEDS: LEVOTHYROXINE SODIUM 100 MCG TABLET PO SCH (05:38)
[2022-05-06] MEDS: AMIODARONE 200 MG TAB PO SCH ×2 (09:00→17:31)
[2022-05-06] MEDS: dexAMETHasone 1 MG TAB PO SCH (09:30)
[2022-05-06] MEDS: PROPRANOLOL HCL 20 MG TAB PO SCH ×2 (09:30→20:17)
[2022-05-06] MEDS: PRIMIDONE 50 MG TAB PO SCH ×2 (09:30→20:16)
[2022-05-06] MEDS: guaiFENesin 600 MG TABCR PO SCH ×2 (09:30→20:12)
[2022-05-06] MEDS: PANTOprazole 40 MG TAB PO SCH ×2 (09:30→20:13)
[2022-05-06] MEDS: CYANOCOBALAMIN (B-12) 500 MCG TABLET PO SCH (09:30)
[2022-05-06] MEDS: DOCUSATE SODIUM/SENNA 50/8.6MG TAB PO SCH (11:17)
[2022-05-06] MEDS: DICLOFENAC SOD 1% GEL 100 GM TUBE EXT SCH ×2 (11:18→20:13)
[2022-05-06] MEDS: LOVASTATIN 20 MG TAB PO SCH (17:31)
--- NOTE | 2022-05-06 20:02 | Hospitalist Progress Note ---
Date of Service May 06, 2022 Assessment & Plan (1) Tremor of both hands: Plan: Improved but still prominent and problematic to the patient PT notes indicate that the tremors even interfere with his PT session Work-up done while here: Head CT negative MRI brain with and w/o con NEGATIVE for acute or chronic pathology Lyme testing/Anaplasmosis smear negative Babesiosis negative Ammonia wnl, denies etoh use. Does have varices but NO CIRRHOSIS, CT liver RPR negative TSH wnl CK only mildly elevated and returned to normal; aldolase mildly elevated but no real other signs of myositis Heavy metal screen returned negative Ceruloplasmin negative/normal Iron studies c/w SEVERE deficiency (ferritin 4) s/p Venofer x 3 doses ?RLS type picture contributing to tremors?? - pramipexole daily initiated but it had't helped him clinically; and he denied RLS/PLMD symptoms -- thus, pramipexole stopped B12 borderline low in low 300s so possibly neuropathy contributing; continue B12 replacement with 500mcg daily [place] [facility] [place] - Benign essential tremor suspected Tremors improved since starting propranolol - titrated to 40mg po bid - but still with severe tremors Started primidone 25mg HS 05/03/22 Increase to BID dosing to 05/05/22 Primidone does have interaction with amiodarone via CYP system, but the interaction is that it might decrease the effectiveness of amiodarone (not prolong the QTC) I think benefits of primidone outweigh risks myasthenia gravis panel sent/pending to be complete Will need [facility] [place] post-discharge (2) COVID-19: Plan: Initial symptoms 04/29 and tested positive on 04/30 Fully vaxed and boosted x 1, never had COVID previously stable, resolving O2-sats have been low-normal thus Dexamethasone/Remdesivir started while here Completed 5-day course of Remdesevir Continue dexamethasone 6mg daily- last dose 05/09 (3) Atrial fibrillation with RVR: Plan: Developed rapid atrial fibrillation the day after admission which caused hypotension and diaphoresis Was started on IV amiodarone and converted to sinus rhythm with such ECHO 04/24 w/ normal LV size/function, EF 60-65% with no wma TSH, FT3, F4 normal Nuclear stress negative for ischemia No anticoagulation given risk >benefit given varices and history of gastric erosions, with ongoing severe Fe deficiency anemia Remains on amiodarone 200mg BID for rhythm control I spoke with Dr Jamison from cardiology re: bradycardia - advised lowering amiodarone to 200mg/day Remains in NSR Remains on inderal BID - lowered dose to 20mg BID due to bradycardia (4) Iron deficiency anemia: Plan: Severe. s/p IV venofer x 3 doses earlier in the admission. Repeat Fe studies tomorrow am to determine if additional doses are needed. H/H remain stable. Fall 2020 - EGD with grade 3 upper third esophageal varices and gastric erosion 10/2021 colonoscopy w/ polyps and non-bleeding hemorrhoids 02/2022 negative capsule endoscopy Celiac panel 04/30/22 negative. Outpatient GI follow up to consider banding his esophageal varices (5) Barretts esophagus: Plan: Chronic continue PPI twice daily (6) Dyspnea on exertion: Plan: nuclear stress test negative this admission 04/26/[address] with "emphysema" after recovery from COVID advise pulmonary f/u as outpatient with PFTs for definitive dx I discussed this with him yesterday he was a smoker - heavy - until 1998 discussed this with his at bedside today (7) Generalized weakness: Plan: Multifactorial Iron deficiency anemia COVID-19 infection Deconditioning etc PT today felt he could return home with his with home PT/OT services likely can't get those services until Sunday so no discharge today (8) Rash: Plan: had seen dermatology recently as outpatient thought from mowing grass/chiggers ?drug induced from valsartan, would NOT continued this at d/c and BPs have been fine without it as well rash resolved (9) Hypertension: Plan: cont propranolol but reduced dose to 20mg BID ARB has been d/c out of abundance of caution that it could have been contributing to tremors, rash, etc (10) Dyslipidemia: Plan: cont statin (11) Hypothyroidism: Plan: Chronic, continue home levothyroxine. TFTs normal (12) Constipation: Plan: cont bowel maintenance Plan updated at bedside today discharge tomorrow with home PT/OT and home nursing on Sunday?? Admission and Anticipated Discharge Date Admission Date: April 22, 2022 Subjective patient seen by PT today - walked 80 feet in the room, CG assist only per the note when I asked him to screw machine adjuster automatic the room ( was present) he was a bit wobbly - he braced himself with his hand on the counter expressed concern about how he stood up both agree, however, that tremors are indeed better he offers no new complaints tele - sinus nataliya at rest; 60s with activity Review of Systems Review of Systems: gen - good appetite, good energy, no fever cv - no cp pulm - mild cough, very little sputum GI - no abd pain, N/V Physical Exam Physical Exam: gen - NAD, looks good, sitting in chair; at bedside neuro - mild tremors of arms at rest; a bit worse with intention neck - no JVD heart - RRR, s1 s2, no murmur lungs - CTA b/l abd - soft NT ND BS+ ext - no edema, pulses 2+ b/l psych - a/o x 3 Results & Data Results & Data ([facility]) Vital Signs (Past 12 Hours) Vital Signs Temp Pulse Pulse Resp BP Pulse Ox O2 Del Method 05/06/22 16:45 36.9 C 64 20 152/61 H 98 Room Air 05/06/22 15:35 63 05/06/22 12:43 37.0 C 66 18 121/60 96 Room Air 05/06/22 10:52 Room Air PG Care Time/CCT Total # of Minutes Spent Total Time Spent with Patient: Total time spent is greater than 50% in coordination of care (as documented) at patient's floor/unit and/or counseling patient: Coding Level of Care Code 99797 Subseq Hosp Care Lvl 2 Diagnoses Tremor of both hands R25.1 COVID-19 U07.1 Atrial fibrillation with RVR I48.91 Iron deficiency anemia D50.9 Barretts esophagus K22.70 Dyspnea on exertion R06.09 Generalized weakness R53.1 Rash R21 Hypertension I10 Dyslipidemia E78.5 Hypothyroidism E03.9 Constipation K59.00
[2022-05-06] MEDS: POLYETHYLENE (MIRALAX) 17 GM PACK PO SCH (20:23)
[2022-05-07] MEDS: LEVOTHYROXINE SODIUM 100 MCG TABLET PO SCH (05:44)
[2022-05-07 06:59] LABS: Creatinine Clr Calc Pharmacy 65.3 ml/min; Est GFR (African American) 85.1 ml/min; Est GFR (Non-African American) 73.4 ml/min
[2022-05-07] MEDS: DOCUSATE SODIUM/SENNA 50/8.6MG TAB PO SCH (09:02)
[2022-05-07] MEDS: AMIODARONE 200 MG TAB PO SCH (09:02)
[2022-05-07] MEDS: guaiFENesin 600 MG TABCR PO SCH (09:02)
[2022-05-07] MEDS: CYANOCOBALAMIN (B-12) 500 MCG TABLET PO SCH (09:03)
[2022-05-07] MEDS: dexAMETHasone 1 MG TAB PO SCH (09:03)
[2022-05-07] MEDS: PRIMIDONE 50 MG TAB PO SCH (09:03)
[2022-05-07] MEDS: PANTOprazole 40 MG TAB PO SCH (09:04)
[2022-05-07] MEDS: PROPRANOLOL HCL 20 MG TAB PO SCH (09:07)
[2022-05-07] MEDS: DICLOFENAC SOD 1% GEL 100 GM TUBE EXT SCH (09:07)
[2022-05-07 10:21] LABS: BUN Creatinine Ratio 28.3 (10-20); Calcium 8.9 mg/dl (8.5-10.1); Creatinine Clr Calc Pharmacy 63.9 ml/min; Est GFR (Non-African American) 71.6 ml/min; Potassium 4.5 mmol/L (3.5-5.1)
--- NOTE | 2022-05-07 14:50 | Discharge Summary ---
Date of Service date of admission - April 22, 2022 date of discharge - May 07, 2022 Admission HPI Per Admitting Provider 82 year old male w/ PMHx of subacute iron-deficiency anemia, HTN, HLD, hypothyroidism, Jose's, and grade 3 esophageal varices who presents w/ new onset hand tremors since 04/20/22, ambulatory dysfunction and generalized weakness. He was sent home from ED yesterday for atypical chest pain w/ planned outpatient cardiology f/u. The tremors are mainly at hands, present at rest, but significantly worsened w/ intention/movement such as brushing teeth. He denies any prior hx of tremor and does not have family hx of Parkinson's. He denies hx of chronic liver disease or chronic etoh issues. No recent etoh use. He has been stumbling more but denies falls. His baseline is an active lifestyle. He has had mild gtw-dzfh-bjskotqa lightheadedness when standing up too quickly. 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 Occasional intermittent neck pain, no recent worsening. He has had recent outpatient workup for severe iron deficiency anemia including colonoscopy and capsule endoscopy. No paresthesias. No infectious symptoms. No myopathy symptoms. Denies recent infections such as URI. No fever/chills, cp, sob. No headaches. Denies memory issues. Chronic mild speech impediment since childhood. He has had a few months of slightly increased MARQUEZ. Quit tobacco 1998. ED course: NSS 500mL bolus. Principal Diagnosis 1. severe tremors - etiology uncertain 2. COVID-19 infection - initial diagnosis 04/30/22 3. severe iron deficiency 4. atypical chest pain/dyspnea - ACS ruled out - negative nuclear stress test 5. paroxysmal atrial fibrillation Discharge Exam gen - NAD, looks good, occasional cough neuro - mild tremors of arms at rest; tremors worse with intention/movement neck - no JVD heart - RRR, s1 s2, no murmur lungs - CTA b/l abd - soft NT ND BS+ ext - no edema, pulses 2+ b/l psych - a/o x 3 Discharge Data Allergies Allergy/AdvReac Type Severity Reaction Status Date / Time famotidine Allergy Intermediate Hives Verified 04/22/22 19:09 nitrofurantoin Allergy Intermediate Hives Verified 04/22/22 19:09 Penicillins Allergy Intermediate Hives Verified 04/22/22 19:09 Sulfa (Sulfonamide Allergy Intermediate Hives Verified 04/22/22 19:09 Antibiotics) adhesive AdvReac Intermediate skin tear Verified 04/22/22 19:09 Consultations [facility] [place]astro[facility]ology PT, OT Procedures Performed Echocardiogram: * EF 60-65% * moderate LVH * no regional wall motion abnormalities * grade 1 diastolic dysfunction Lexiscan Nuclear Stress Test: Ejection fraction: 71 % Wall motion: Normal No significant transient ischemic dilation. Impression: 1. Negative myocardial perfusion study for ischemia. 2. Small fixed defect may be due to attenuation artifact given normal wall motion. 3. Lexiscan induced mild chest tightness. 4. Normal LV systolic function. EF 71%. 5. Abnormal Lexiscan stress ECG. Ordered Studies Head CT 04/22/22 18:[address] DOSE: 823.12 mGy.cm HISTORY: eldon and lali TECHNIQUE: Multiaxial CT images of the head were performed without the use of intravenous contrast. Automated exposure control was utilized for this study. A dose lowering technique was utilized adhering to the principles of ALARA. Comparison: Head CT 05/24/2009 Findings: Mild mucosal thickening within the sphenoid sinuses. The mastoid air cells are clear. The calvarium and skull base are intact. There is no mass, hematoma, midline shift, acute infarct. White matter hypodensity is nonspecific but suggestive of microvascular ischemic change. The ventricles and sulci demonstrate mild age-related involutional changes. Impression: No acute intracranial abnormality. Atrophy and microvascular ischemic changes. ACT 112: Negative or not required by law. Electronically signed by: Peter Herring M.D. 04/22/2022 7:28 PM Chest X-Ray 04/22/22 18:07 XR chest 1V portable HISTORY: weakness COMPARISON: Chest 04/21/2022. FINDINGS: No pneumothorax. No pleural effusions. The cardiac silhouette remains mildly enlarged. This mildly tortuous thoracic aorta, unchanged. Stable linear scarlike density within the left lower lung zone. Otherwise, no new focal lung consolidations to suggest pneumonia. No evidence for pulmonary edema. IMPRESSION: No significant change compared to the prior study. No acute process. ACT 112: Negative or not required by law. Electronically signed by: Peter Herring M.D. 04/22/2022 6:30 PM KUB X-Ray 04/23/22 10:17 KUB HISTORY: Clearance for MRI MRI clearance COMPARISON: Acute abdominal series radiographs 06/15/2017 FINDINGS: Nonobstructive bowel gas pattern. No opaque foreign bodies identified No renal calculi. No ureteral calculi. No pneumoperitoneum or pneumatosis. Degenerative changes of the spine, pelvis and hips. No fracture. IMPRESSION: 1. Nonobstructive bowel gas pattern. 2. No opaque foreign body. ACT 112: Negative or not required by law. The above report was generated using voice recognition software. It may contain grammatical, syntax or spelling errors. Electronically signed by: Betito Travis M.D. 04/23/2022 10:58 AM Portal Vein US 04/23/22 17:14 US duplex portal hepatic veins HISTORY: 82 years-old Male Varices; please include splenic vein acute upper abdominal pain COMPARISON: CT abdomen 10/18/2021 TECHNIQUE: Multiple real-time sonographic images of the hepatic vessels were obtained assessing grayscale appearance, color and spectral flow FINDINGS: Patent hepatic, portal and splenic veins with normal directional flow. IMPRESSION: Unremarkable exam. ACT 112: Negative or not required by law. The above report was generated using voice recognition software. It may contain grammatical, syntax or spelling errors. Electronically signed by: Bettio Travis M.D. 04/23/2022 6:16 PM Brain MRI 04/23/22 22:09 MR brain wo/w con HISTORY: 82 years-old Male new possible cerebellar tremor. +nystagmus. Acute tremor. COMPARISON: Head CT 04/22/2022 TECHNIQUE: Multiplanar multisequence MRI of the brain was obtained both with and without 9.5 cc Gadavist. FINDINGS: There is no restricted diffusion to suggest acute or subacute infarct. Midline structures appear unremarkable. Degenerative changes of the imaged cervical spine. No acute intracranial hemorrhage, midline shift, abnormal extra-axial collection, hydrocephalus or intracranial mass. No pathologic blooming artifact on the T2 star series. Mild involutional changes. Minimal T2/FLAIR hyperintensities throughout the white matter likely represent chronic microvascular ischemic disease. The mesial temporal lobes are unremarkable. No evidence of mesial temporal sclerosis, man matter heterotopia or cortical dysplasia. No abnormal enhancement. Cerebral venous sinuses and major arterial flow voids appear patent. Left mastoid effusion. Minimal mucosal thickening of the paranasal sinuses. Prior bilateral lens repair. The skull and soft tissues are unremarkable. IMPRESSION: 1. No acute intracranial abnormality. No acute or subacute infarct. 2. No abnormal enhancement. ACT 112: Negative or not required by law. The above report was generated using voice recognition software. It may contain grammatical, syntax or spelling errors. Dictated: 04/23/2022 4:57 PM Transcribed: 04/23/2022 5:21 PM Chastity [id number] [facility] Electronically signed by: Betito Travis M.D. 04/23/2022 5:[address] 04/26/22 12:[address] CONTRAST CT DOSE: 463.52 mGy.cm HISTORY: Acute generalized abdominal pain eval for cause of upper esophageal varicies TECHNIQUE: Multiaxial CT images of the chest were performed following the IV administration of 85 cc of Optiray. A dose lowering technique was utilized adhering to the principles of ALARA. COMPARISON: Chest CT and CT liver 10/18/2021 FINDINGS: Unremarkable thyroid. There is no lymphadenopathy. The heart is mildly enlarged. No pericardial effusion. Extensive coronary artery calcifications. Atherosclerosis of the thoracic aorta without aneurysm. There is patency of the imaged great vessels. Unremarkable pulmonary artery. Nonspecific mildly enlarged right hilar lymph nodes measure up to 1.1 cm, unchanged. There is no pneumothorax, pleural effusion or overt pulmonary edema. Mild upper lung zone predominant paraseptal emphysema. There is mild subsegmental bibasilar atelectasis versus scarring with bronchial wall thickening suggestive of bronchitis. There are no suspicious pulmonary nodules or masses identified. The central airways are patent. Small hiatal hernia. No esophageal varicosities are identified. Mild nonspecific mid to distal esophageal wall thickening Colonic diverticulosis. Mild colonic fecal retention. There is questioned gallbladder sludge. Unremarkable soft tissues. There is no acute fracture. Chronic T12 compression deformity. IMPRESSION: 1. Emphysema without acute intrathoracic abnormality. 2. Small hiatal hernia with mild wall thickening of the distal esophagus again noted. No esophageal varicosities are identified. ACT 112: Negative or not required by law. Electronically signed by: Betito Travis M.D. 04/26/2022 4:14 PM Chest X-Ray 04/30/22 08:47 XR chest 1V portable CLINICAL HISTORY: fever,COVID,cough. COMPARISON STUDY: 04/22/2022 TECHNIQUE: 1 view of the chest FINDINGS: Single frontal view of the chest demonstrates the cardiomediastinal silhouette to be within normal limits. The lungs are clear of alveolar opacities. There is no evidence for pleural effusion. There is no evidence for vascular congestion. There is no acute osseous pathology. IMPRESSION: 1. No acute cardiopulmonary disease. ACT 112: Negative or not required by law. Electronically signed by: Gustavo Perez M.D. 04/30/2022 9:05 AM Hospital Course (1) Tremor of both hands: New-onset. Tremors started acutely several days prior to admission. He never has had tremor in the past. Work-up done while here: Head CT negative MRI brain with and w/o contrast NEGATIVE for acute or chronic pathology Lyme testing/Anaplasmosis smear negative Babesiosis negative Ammonia wnl, denies etoh use. Does have varices but NO CIRRHOSIS on CT liver RPR negative TSH wnl CK only mildly elevated and returned to normal; aldolase mildly elevated but no real other signs of myositis Heavy metal screen returned negative Ceruloplasmin negative/normal Iron studies c/w SEVERE deficiency (ferritin 4) s/p Venofer x 3 doses ?RLS type picture contributing to tremors?? - pramipexole daily initiated but it hadn't helped him clinically (and he denied RLS/PLMD symptoms) -- thus, pramipexole stopped B12 borderline low in low 300s so possibly neuropathy contributing; continue B12 replacement with 1000mcg daily Seen by [facility] - Benign essential tremor suspected Started propranolol BID but still with severe tremors Started primidone 25mg HS 05/03/22 Increased to 25mg BID dosing on 05/05/22 Primidone does have interaction with amiodarone via CYP system, but the interaction is that it might decrease the effectiveness of amiodarone (not prolong the QTC) I think benefits of primidone outweigh risks Myasthenia gravis panel sent/pending to be complete Tremors definitely improved with combination of PROPRANOLOL 20MG BID + PRIMIDONE 25MG BID Will need [facility] [place] f/u post-discharge for the tremors (2) COVID-19: Initial COVID testing was negative on day of admission Initial symptoms 04/29 and tested positive on 04/30 Fully vaxed and boosted x 1, never had COVID previously Although chest imaging did not show pneumonia O2 sats were low-normal while sick with COVID He never had an O2 requirement fortunately Dexamethasone/Remdesivir utilized during the stay Completed 5-day course of Remdesivir Continue dexamethasone 6mg daily with last dose 05/09/22 (3) Atrial fibrillation with RVR: Developed rapid atrial fibrillation the day after admission which caused hypotension and diaphoresis Was started on IV amiodarone and converted to sinus rhythm with such ECHO 04/24 w/ normal LV size/function, EF 60-65% with no wall motion abnormalities TSH, FT3, F4 normal Nuclear stress negative for ischemia No anticoagulation given risk > benefit (given esophageal varices and history of gastric erosions, with ongoing severe Fe deficiency anemia) Remained on amiodarone the remainder of his stay At discharge will continue Amiodarone 200mg DAILY for rhythm control Also remains on inderal BID - lowered dose to 20mg BID due to bradycardia seen with 40mg BID He will follow-up with [facility] shortly after discharge for the PAF Rates 55-65 at rest in the days leading up to discharge (4) Iron deficiency anemia: Severe. Initial ferritin of 4, improving to >300 later in the stay. s/p IV venofer x 3 doses this admission. H/H stable throughout the visit. No overt GI bleeding during the stay. 08/2021 - EGD with grade 3 upper third esophageal varices and gastric erosions ([facility]) 10/2021 colonoscopy w/ polyps and non-bleeding hemorrhoids 02/2022 negative capsule endoscopy Celiac panel 04/30/22 negative. Refer to outpatient GI for consideration of banding his esophageal varices (5) Barretts esophagus: Chronic continue PPI twice daily (patient reports difficulty paying for twice daily PPI -- advised him to discuss with his PCP) (6) Dyspnea on exertion: nuclear stress test negative this admission 04/26/[address] with "emphysema" after recovery from COVID advise pulmonary f/u as outpatient with PFTs for definitive dx he was a smoker - heavy - until 1998 discussed the possibility of COPD with he & his at bedside during the hospitalization (7) Generalized weakness: Multifactorial Iron deficiency anemia COVID-19 infection Deconditioning etc initially he was interested in going to inpatient rehab Insurance, however, denied such (and SNF would have been his only option) late in the stay he made improvement in his deconditioning seen by PT on 05/06 and 05/07 -- both therapists felt that he could return home with his with home PT/OT services (8) Hypertension: cont propranolol but reduced dose to 20mg BID due to bradycardia seen on monitoring ARB has been d/c out of abundance of caution that it could have been contributing to tremors, rash, etc (9) Dyslipidemia: cont statin (10) Hypothyroidism: Chronic, continue home levothyroxine. TFTs normal (11) Constipation: cont bowel maintenance (12) Abnormal chest CT: possible emphysema based on chest CT findings heavy smoker up until 1998 recommended [facility] f/u after discharge for consideration of PFTs, etc Home Health Attestation I certify that this patient is under my care and that I, or a physicians medical administrative assistant working with me, had a face to-face encounter that meets the home health ikzu-qu-weva encounter requirements with this patient. The encounter with the patient was in whole, or in part, for the following medical condition, which is the primary reason for home health care (list medical condition): I certify that, based on my findings, the following services are medically necessary home health services: My clinical findings support the need for the above services because: Further, I certify that my clinical findings support that this patient is homebound (i.e. absences from home require considerable and taxing effort and are for medical reasons or restoration services or infrequently or of short duration when for other reasons) because: Certification for Home Health Services: Based on the above findings, I certify that this patient is confined to the home and needs intermittent longterm care, physical therapy and/or speech therapy or continues to need occupational therapy. The patient is under my care, and I have initiated the establishment of the plan of care. This patient will be followed by a physician who will periodically review the plan of care. Total Time Total Time Spent Total Time Spent (In Minutes): 60 Discharge Plan Discharge Items Patient Disposition: Home - Home Health Services Reason For Visit: NEW TREMORS, GENERALIZED WEAKNESS, ANEMIA Discharge Diagnosis: 1. new onset tremors - improved 2. severe iron deficiency anemia - multiple iron infusions given with improved anemia & iron levels following such 3. shortness of breath - lung and heart tests performed - negative stress test; chest CT scan suggestive of underlying emphysema (see below) 4. episode of atrial fibrillation - resolved 5. COVID-19 infection - improving/resolving 6. weakness - multifactorial - improved Activity: As commented below Activity Comment: gradually increase your activities over the next 5-7 days Sexual Activity: Wait until after follow-up appointment Exercise/Sports: Wait until after follow-up appointment Driving/Machine Use: Resume 3 days after discharge Non-emergency contact: Primary Care Provider and Lieutenant Colonel Call non-emergency contact if: you have any medication questions, your symptoms worsen and you have a fever Follow-up/Referrals: Guy Kennedy MD [Physician] - (see Dr Kennedy or one of his partners in 3-4 weeks for your tremors) Holger Jamison MD [Physician] - 05/12/22 9:30 am Desmond Sheldon MD [Physician] - (1-[address] Sheldon or one of his partners; diagnosis - ?emphysema, PFTs needed ) Tierra Strauss PA-C [Physician Acoustical Engineer] - 05/16/22 11:45 am PCP,NO [Primary Care Provider] - (we will attempt to secure an earlier appointment with a new primary care provider for you within the next 1-2 weeks ) Diet: Heart Healthy Addtl Attending Provider Instructions: Mr Rich, You were hospitalized for the problems listed above in "discharge diagnoses." The main issue that was bothering you significantly were the tremors. You were seen by [facility] neurology and they recommended medication for you. A large work-up was undertaken to rule out various causes of tremors. MRI brain did NOT show an old or new stroke. Blood work to rule out conditions of the liver, thyroid gland, nervous system, etc returned negative/normal. The tremors gradually improved. During your stay we also pursued testing of your heart. A stress test returned normal. This would suggest that any difficulty breathing or chest pains is not coming from the heart. You had an episode of something called "atrial fibrillation" (see handout). This episode was brief. You were seen by [facility] Cardiology and they recommended medication to prevent the atrial fibrillation from coming back. After the brief episode you were in normal rhythm for the rest of your stay. Unfortunately, on the morning of 04/30, you tested positive for COVID-19. Fortunately you never had signs of pneumonia and your COVID has improved during your stay. Recommendations - 1. for COVID-19 - * dexamethasone steroid - 6mg once daily with food for 2 more days (05/08 and 05/09) * tessalon pearles - 100mg every 8 hours as needed for cough * you can take sgmk-lyw-noruhbh mucinex up to 1200mg twice daily as needed/as desired for cough/congestion 2. your COVID symptoms should gradually resolve over the next 1-2 weeks. The cough and any lingering fatigue are typically the last symptoms to resolve. Take it easy and gradually increase your activities during this time period. You will receive home PT and OT to help with your strengthening and balance at home. 3. tremor medication - * propranolol 20mg twice daily * primidone 25mg twice daily * follow-up with [facility] in about 1 month for the tremors 4. for your atrial fibrillation ("a.fib") - * amiodarone 200mg once daily starting 05/08/22 * please follow-up with cardiology - Dr Jamison - on 05/12/22 as scheduled for the a.fib 5. your vitamin B12 level is in the low end of normal. Please purchase riws-ehp-taynrsl vitamin B12 and take 1000mcg once daily for 1 year. 6. ideally you should take your nexium acid design sales consultant twice daily every day. I understand that this may be challenging because of cost. When you follow-up with your doctors perhaps they can determine if there is an alternative acid design sales consultant you could take twice daily that is less costly for you. In the meantime just take the nexium daily as previous. 7. please discontinue your VALSARTAN. 8. over the next 5-7 days please use your incentive spirometry device to help keep your lungs nice and inflated. it will help you recover faster from your COVID illness. 9. you are about day 8 into 9 of your COVID illness. If you remain fever-free and continue to improve each day moving forward you should be able to come out of isolation on 05/09/22. In the meantime plan to take it easy at home and rest over the next few days. Do not allow visitors to your home until your isolation period is over. Starting Sunday, when you leave the house to run errands, attend to doctor appointments, etc -- please wear a mask. 10. please use your walker faithfully at home as well as outside your house. 11. finally, again your CT scan of the chest suggested underlying emphysema. We do not use CT scan to "diagnose" breathing conditions like asthma or emphysema; the CT is simply suggesting that the lungs do not look normal. The best way to diagnose an underlying emphysema condition is to see a lung speci alist and have breathing tests called "PFTs." I would recommend seeing [facility] Pulmonary in about 1-2 months for additional testing. If emphysema is indeed present I suspect it is mild. Follow-up - see separate section Return to [facility] if - * you have fevers over 100 degrees * you have worsening shortness of breath * you have chest pains * you have severe balance issues, difficulty walking, etc * any other concerns It was our pleasure caring for you at [facility]! Please continue to feel better, Dr Rich Pending Studies at Discharge: No Stand-Alone Forms: My [facility], Smoking Cessation Medications and DC Order Prescriptions: New primidone 50 mg Tablet 25 mg PO BID Qty: 60 5RF amiodarone 200 mg Tablet 200 mg PO DAILY Qty: 30 5RF propranolol 20 mg Tablet 20 mg PO BID Qty: 60 5RF cyanocobalamin (vitamin B-12) 1,000 mcg capsule 1,000 mcg PO DAILY Qty: 90 3RF Rx Instructions: purchase [id number]-zyf-[id number]; take for 1 year. benzonatate 100 mg capsule 100 mg PO TID PRN (Reason: cough) Qty: 20 0RF esomeprazole magnesium [Nexium] 40 mg capsule,delayed release(DR/EC) 40 mg PO DAILY Qty: 30 0RF Continued levothyroxine 100 mcg tablet 100 mcg PO QAM Qty: 90 1RF lovastatin 20 mg tablet 20 mg PO QPM Qty: 90 3RF waywykzqxywe-rjacxovv-yykuaf tablet 1 tab PO QPM aspirin [Katy Chewable Aspirin] 81 mg tablet,chewable 81 mg PO QAM triamcinolone acetonide 0.5 % cream 1 applic TOP UD PRN (Reason: Skin Irritation) metronidazole 0.75 % gel 1 applic TOP HS polyethylene glycol 3350 [Miralax] 17 gram/dose Powder 17 g PO HS Discontinued esomeprazole magnesium 40 mg capsule,delayed release(DR/EC) 40 mg PO QAM Qty: 90 3RF valsartan 80 mg tablet 80 mg PO QAM Discharge Orders: Discharge Order (Routine); Ordered 05/07/22 Ordered By: Luke Sr/Other Patient Handouts: Caring for Someone Who Has COVID-19, Disinfecting Your Home of COVID-19, Understanding Deep Vein Thrombosis, DVT Complications, Anemia, COVID-19 Home Care, Preventing Deep Vein Thrombosis, ED Atrial Fibrillation, ED Anemia, Iron-Deficiency (Adult) Admission Data Admit Date/Time: 04/22/22 22:09 Attending Provider: Luke Rich Admit Provider: Fadi Chavira Primary Care Provider: PCP,NO Other Providers: Blanquita Das at [place] ; Quoc Wyatt ; Guy Kennedy ; Manoj Garcia ; Christy Hickey ; [facility] ; [facility] ; [facility],Home Health Other Interventions: Discharge Summary Assessment (RN) Last Done: 05/07/22 14:22 Coding Level of Care Code D/C DAY MANAGEMENT >30 MINS Diagnoses Tremor of both hands R25.1 COVID-19 U07.1 Atrial fibrillation with RVR I48.91 Iron deficiency anemia D50.9 Barretts esophagus K22.70 Dyspnea on exertion R06.09 Generalized weakness R53.1 Hypertension I10 Dyslipidemia E78.5 Hypothyroidism E03.9 Constipation K59.[address] R93.89
[2022-05-08] MEDS ORDERED: AMIODARONE 200 MG TAB PO SCH (09:00)
[2022-05-15 11:02] LABS: Anti-Striated Muscle NEGATIVE (NEGATIVE); Receptor Binding Ab <0.30 nmol/L
== END 2022-05-07 15:52 | disposition home health service (06) | DRG 91 ==
LOC: ED 17:40 → SUATTDRO 22:09 → 3N 22:09 → 2S 04-25 13:00
DX: Z79.82 Long term (current) use of aspirin; Z88.2 Allergy status to sulfonamides; Z59.1 Inadequate housing; E03.9 Hypothyroidism, unspecified; H90.3 Sensorineural hearing loss, bilateral; Z88.0 Allergy status to penicillin; U07.1 COVID-19; Z87.891 Personal history of nicotine dependence; Z79.890 Hormone replacement therapy; D50.9 Iron deficiency anemia, unspecified; R09.81 Nasal congestion; E78.5 Hyperlipidemia, unspecified; I25.10 Atherosclerotic heart disease of native coronary artery without angina pectoris; R05.9 Cough, unspecified; K31.89 Other diseases of stomach and duodenum; T44.5X5A Adverse effect of predominantly beta-adrenoreceptor agonists, initial encounter; R06.02 Shortness of breath; L27.0 Generalized skin eruption due to drugs and medicaments taken internally; I85.10 Secondary esophageal varices without bleeding; R26.2 Difficulty in walking, not elsewhere classified; K59.00 Constipation, unspecified; I48.0 Paroxysmal atrial fibrillation; Y92.009 Unspecified place in unspecified non-institutional (private) residence as the place of occurrence of the external cause; G25.2 Other specified forms of tremor; K22.70 Barrett's esophagus without dysplasia; I10 Essential (primary) hypertension